=== PATIENT | male | born 1945 | race Caucasian/White ===

== ENCOUNTER 2017-07-04 09:29 | Inpatient (IN) | payer MEDICARE, OTHER, SELFPAY ==
[2017-07-04] VITALS (13 sets, daily range): BP systolic 95–192; BP diastolic 55–85; PULSE 48–60; RESP 13–20; TEMP 35.6–37.1; O2SAT 93–98; BMI 38.9; BMI 40.4
--- NOTE | 2017-07-04 09:48 | EKG12_ITS ---
Test Reason : CP Blood Pressure : / mmHG Vent. Rate : 053 BPM Atrial Rate : 053 BPM P-R Int : 182 ms QRS Dur : 102 ms QT Int : 444 ms P-R-T Axes : 026 -23 065 degrees QTc Int : 416 ms Sinus bradycardia Leftward axis Confirmed by LILIANA RDZ, ELSA ([id number]), features editor TREVOR SHEIKH ([id number]) on 07/08/2017 10:19:33 AM Referred By: FUENTES Confirmed By:ELSA FORD MD
--- NOTE | 2017-07-04 09:49 | ED.VISSUMM ---
- ER Visit Summary Date of Service: 07/04/17 Chief Complaint: Exertional dyspnea and aching chest pain History of Present Illness: The patient is a 71 M 3 of CAD with 2 cardiac stents one in 1999 and again 2005. Patient states the last couple weeks with exertion he gets more short of breath and gets chest aching. It does feel similar to when he had his cardiac stents placed. He denies any nausea, vomiting or diarrhea. He denies any leg pain or swelling. He has never had a DVT or PE. He has had no recent travel, surgery, hospital admission or mobilization. He denies any hemoptysis. He denies any melena. Physical Examination: Well-appearing older male. Vital signs are stable afebrile. He does not look septic or toxic. His pulse ox is 90% on room air no hypoxia. No distress. H EENT exam unremarkable. Neck nontender no JVD. Lungs clear to auscultation bilaterally. Heart regular rhythm rate about 55 no murmur. Wall nontender. Abdomen soft nontender. He is moving all 4 extremities. Neurovascularly intact. Strong radial pulse. Calf nontender no edema no cords. Back exam nontender. Neurologically is awake and alert without focal motor deficits. Test Results: BC, BMP and troponin are all normal. Portable chest x-ray 1 view shows no acute abnormality normal cardiac silhouette and mediastinum. EKG is a sinus bradycardia rate of 53 with no acute signs of [place] or ischemia. Repeat exam the patient is doing well at 1040. He will be admitted I have the hospitalist on page. Emergency Department Course and Treatment: Undergo cardiac workup and received p.o. aspirin. He does need to be admitted for further cardiac evaluation for exertional dyspnea and chest pain. Treatment Plan: Admission for further evaluation of exertional dyspnea and chest pain. Disposition: Admission Impression: Acute exertional dyspnea and chest pain History of CAD with 2 cardiac stents This note was generated with [employer] dictation software. It may contain incorrect words, spelling, and punctuation that were not noted in review of the chart prior to signing ED Disposition - Plan for ED Patient: Chief Complaint: Shortness of Breath Referrals: Darrell Aggarwal [NON-STAFF] -
--- NOTE | 2017-07-04 09:52 | RAD_ITS ---
STUDY: X-RAY CHEST REASON FOR EXAM: Male, 71 years old. Shortness of breath and chest discomfort. TECHNIQUE: Single AP portable view of the chest. COMPARISON: None. FINDINGS: EKG electrodes are seen. There is mild elevation of the right hemidiaphragm. There is no demonstrated pleural abnormality. Normal size heart. Normal mediastinum and sarah. Normal visualized pulmonary arteries. Normal visualized aortic arch and descending thoracic aorta. Normal visualized thoracic spine. Normal visualized ribs, clavicles, and shoulders. There is no demonstrated abnormality of the visualized soft tissue structures of the upper abdomen. RAD/Chest 1 View (Portable) IMPRESSION: Normal x-ray examination of the chest. Electronically Signed: Pierre Lin MD at 10:25 EDT Tel [phone], Service support ,
--- NOTE | 2017-07-04 09:52 | ED.DCSUM_ITS ---
- ER Visit Summary Date of Service: 07/04/17 Chief Complaint: Exertional dyspnea and aching chest pain History of Present Illness: The patient is a 71 M 3 of CAD with 2 cardiac stents one in 1999 and again 2005. Patient states the last couple weeks with exertion he gets more short of breath and gets chest aching. It does feel similar to when he had his cardiac stents placed. He denies any nausea, vomiting or diarrhea. He denies any leg pain or swelling. He has never had a DVT or PE. He has had no recent travel, surgery, hospital admission or mobilization. He denies any hemoptysis. He denies any melena. Physical Examination: Well-appearing older male. Vital signs are stable afebrile. He does not look septic or toxic. His pulse ox is 90% on room air no hypoxia. No distress. H EENT exam unremarkable. Neck nontender no JVD. Lungs clear to auscultation bilaterally. Heart regular rhythm rate about 55 no murmur. Wall nontender. Abdomen soft nontender. He is moving all 4 extremities. Neurovascularly intact. Strong radial pulse. Calf nontender no edema no cords. Back exam nontender. Neurologically is awake and alert without focal motor deficits. Test Results: BC, BMP and troponin are all normal. Portable chest x-ray 1 view shows no acute abnormality normal cardiac silhouette and mediastinum. EKG is a sinus bradycardia rate of 53 with no acute signs of MS or ischemia. Repeat exam the patient is doing well at 1040. He will be admitted I have the hospitalist on page. Emergency Department Course and Treatment: Undergo cardiac workup and received p.o. aspirin. He does need to be admitted for further cardiac evaluation for exertional dyspnea and chest pain. Treatment Plan: Admission for further evaluation of exertional dyspnea and chest pain. Disposition: Admission Impression: Acute exertional dyspnea and chest pain History of CAD with 2 cardiac stents This note was generated with [employer] dictation software. It may contain incorrect words, spelling, and punctuation that were not noted in review of the chart prior to signing ED Disposition - Plan for ED Patient: Chief Complaint: Shortness of Breath Referrals: Darrell Aggarwal [NON-STAFF] -
[2017-07-04 10:00] LABS: Absolute Lymphocyte Count 1.14 X10^3/ul (0.83-4.51); Absolute Neutrophil Count 3.7 X10^3/uL (2.0-7.7); Basophil# 0.04 X10^3/uL; Basophil% 0.7 % (0-1); Eosinophil# 0.19 X10^3/uL; Eosinophils% 3.6 % (0-5); Hematocrit 45.9 % (40-54); Hemoglobin 15.8 g/dl (13.0-16.5); Lymphocyte # 1.14 X10^3/ul (4.0); Lymphocyte % 21.3 % (19-41); Mean Corp Hgb Conc 34.4 g/gl (32-36); Mean Corpuscular Volume 93.1 fL (80-94); Mean Platelet Vol. 9.4 fl (6.2-12.0); Monocyte% 5.6 % (0-10); Neutrophil # 3.68 X10^3/uL (2.7-7.7); Neutrophil % 68.8 % (47-70); Platelet Count 199 K/mm3 (150-450); RBC Distribution Width CV 12.7 % (11.6-14.6); RBC Distribution Width SD 42.4 fl (35.1-43.9); Red Blood Count 4.93 M/mm3 (4.6-6.2); White Blood Count 5.4 K/mm3 (4.4-11.0)
[2017-07-04 10:01] LABS: POSITIVE COUNT NO; POSITIVE DIFFERENTIAL NO; POSITIVE MORPHOLOGY NO
[2017-07-04] MEDS: Aspirin 81 MG TAB.CHEW 324 MG PO (10:08)
[2017-07-04 10:32] LABS: Anion Gap 7 (5-15); BUN 14 mg/dL (7-18); BUN/Creat Ratio 10.9 RATIO (10-20); Calcium,Total 8.8 mg/dL (8.5-10.1); Chloride 104 mmol/L (98-107); Creatinine, Serum 1.28 mg/dL (0.70-1.30); EST Glomerular Filtration Rate 59 mL/min (>60); Est Glom Filt Rate - Afr Amer 71 mL/min (>60); Estimated Creatinine Clearance 57.19 ml/min; Glucose 127 mg/dL (74-106); Potassium 4.9 mmol/L (3.5-5.1); Sodium Level 139 mmol/L (136-145)
--- NOTE | 2017-07-04 11:43 | ECHOD_ITS ---
Reason For Study: CAD Procedure This was a 2D Doppler, Color Flow transthoracic echocardiogram. Contrast injection was performed. Exam performed portable in patient room. Left Ventricle Normal LV size. Left ventricular systolic function is normal. The estimated ejection fraction is 60 %. No regional wall motion abnormalities noted. Right Ventricle Normal RV size. Normal systolic function. Atria Normal left atrium. Normal right atrium. Mitral Valve Normal mitral valve. Tricuspid Valve Normal tricuspid valve. Mild (1+) tricuspid valve insufficiency. Pulmonary artery systolic pressure is 39 mmHg. Aortic Valve Trisinus/trileaflet aortic valve. Mild-Moderate (1-2+) eccentric aortic valve insufficiency. Pulmonic Valve Normal pulmonic valve. Great Vessels Mild to moderately dilated aortic root. The pulmonary artery is normal size. Normal inferior vena cava. Pericardium/Pleural No pericardial effusion. Medication [id number] given slow IV push to enhance endocardial definition. MMode/2D Measurements & Calculations LVIDd: 5.6 cm IVSd: 1.2 cm Ao root diam: 4.1 cm LVIDs: 3.7 cm LVPWd: 0.96 cm LA dimension: 4.3 cm RVDd: 4.4 cm FS: 33.8 % LAV(MOD-bp): 54.3 ml LVAd ap4: 42.7 cm2 SV(MOD-sp4): 78.0 ml LAV(MOD-bp) Indexed: 22.3 ml/m2 EDV(MOD-sp4): 153.6 ml LAV(MOD-sp2): 60.9 ml EDV(sp4-el): 161.4 ml LAV(MOD-sp4): 49.3 ml LVAs ap4: 27.2 cm2 ESV(MOD-sp4): 75.6 ml ESV(sp4-el): 78.2 ml EF(MOD-sp4): 50.8 % EF(sp4-el): 51.6 % SV(sp4-el): 83.2 ml LA A4 area: 18.2 cm2 RA A4 area: 17.8 cm2 Doppler Measurements & Calculations MV E max joseph: 58.9 cm/sec Lat Peak E' Joseph: 8.8 cm/sec Med Peak E' Joseph: 6.6 cm/sec MV A max joseph: 67.7 cm/sec E/E' lat: 6.7 E/E' med: 8.9 MV E/A: 0.87 Ao V2 max: 165.4 cm/sec AI max joseph: 481.5 cm/sec LV V1 max: 147.1 cm/sec Ao max P.0 mmHg AI max P.0 mmHg LV V1 max P.7 mmHg AI dec slope: 218.5 cm/sec2 AI P1/2t: 645.5 msec PA V2 max: 101.2 cm/sec PI end-d joseph: 91.4 cm/sec TR max joseph: 292.5 cm/sec TR max P.2 mmHg Interpretation Summary Normal LV size. Left ventricular systolic function is normal. The estimated ejection fraction is 60 %. Pulmonary artery systolic pressure is 39 mmHg. Mild (1+) tricuspid valve insufficiency. Contrast injection was performed. Ordering Physician: Rosa Elena Bernardo Performed By: Nelida Weems, LAURA, RVT
--- NOTE | 2017-07-04 11:43 | EKG12_ITS ---
Test Reason : ADM EKG Blood Pressure : / mmHG Vent. Rate : 049 BPM Atrial Rate : 049 BPM P-R Int : 190 ms QRS Dur : 096 ms QT Int : 456 ms P-R-T Axes : 052 -21 056 degrees QTc Int : 411 ms Sinus bradycardia Otherwise normal ECG Confirmed by LILIANA RDZ, ELSA ([id number]), production editor TREVOR SHEIKH ([id number]) on 07/13/2017 3:24:30 PM Referred By: AIRAM Confirmed By:ELSA FORD MD
--- NOTE | 2017-07-04 13:57 | PCM.HP.STD ---
Problem List (1) Angina of effort Status: Acute (2) HTN (hypertension) Status: Chronic Qualifiers: Hypertension type: essential hypertension Qualified Code(s): I10 - Essential (primary) hypertension (3) Morbid obesity Status: Chronic (4) CAD (coronary artery disease) Status: Chronic (5) History of PTCA Status: Acute Comment: Left main in 1999 and LAD in 2005 - both at [facility] (6) Former cigarette smoker Status: Acute (7) Colon polyps Status: Acute (8) BPH (benign prostatic hyperplasia) Status: Acute (9) Anxiety and depression Status: Acute (10) Chronic renal failure, stage 3 (moderate) Status: Chronic (11) ADAN (obstructive sleep apnea) Status: Chronic Comment: semi-compliant with BIPAP History of Present Illness Date of Admission: 07/04/17 Chief Complaint: Chest pain The patient is a 71 year old M with a PMH of coronary artery disease, PTCA/stent of left main coronary artery in 1999, PTCA/stent of LAD in 2005, hypertension, anxiety/depression, morbid obesity number BPH, colon polyps and former smoking hx who presented to the ED at [facility] on 07/04/2017 complaining of substernal chest discomfort with exertion. He has been having chest discomfort for the past several weeks with exertion and it is associated with shortness of breath and diaphoresis. His exercise tolerance is decreasing and he gets CP with walking and with stairs. He tells me it feels like what he had prior to the stent to the left main in 1999. It occasionally radiates to the left shoulder. It lasts approximately 5 minutes and goes away within 5 minutes if he sits down. Yesterday he had substernal chest pressure with shortness of breath and diaphoresis and it was more severe than usual. He took nitroglycerin and it went away quicker. 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 He sometimes gets SOB when lying down but denies any swelling in the legs. Denies palpitations, lightheadedness, syncope, hx of CHF and hx of cardiac dysrhythmia. He had RF as a child and stated he has never been told he has a MM. Vital signs at presentation to the emergency room were temperature 96.1, heart rate 60, blood pressure 192/82, respiratory rate 13 and he is 98% saturated on room air. KG shows sinus bradycardia with no ischemic changes however the patient was not having chest pain at the time of the EKG. Chest x-ray shows no pleural effusions, pulmonary vascular congestion or infiltrates. CBC is unremarkable. BMP shows a creatinine of 1.28 with BUN of 14. GFR is 59 which is consistent with chronic renal failure stage III. A random blood sugar was elevated at 127. Troponin ?2 has been less than 0.015. He is being admitted to a monitored bed on progressive care unit for unstable angina. Past Medical History Past Medical History (Chronic Problems): Chronic Problems HTN (hypertension) (Chronic) Morbid obesity (Chronic) CAD (coronary artery disease) (Chronic) Chronic renal failure, stage 3 (moderate) (Chronic) ADAN (obstructive sleep apnea) (Chronic) semi-compliant with BIPAP Allergies Sulfa (Sulfonamide Antibiotics) Allergy (Verified 07/04/17 09:32) Unknown Home Medications: Ambulatory Orders Medication Instructions Recorded Lamotrigine [Lamictal] 25 mg PO DAILY 07/04/17 Pantoprazole Sodium [Protonix] 80 mg PO BID 07/04/17 Paroxetine HCl [Paxil] 20 mg PO DAILY 07/04/17 Propranolol HCl [Inderal] 10 mg PO DAILY 07/04/17 Surgical History: cholecystectomy, - - colonoscopies with polypectomies, laser TURP? Psychiatric History: Anxiety, Depression Lives: Alone, - - he is Smoking Status: Former smoker - quit in 1999 Tobacco Use: Non-smoker Alcohol: Rare - mostly quit in 1999 Drugs: None - *Family History Maternal History Items: - - he is adopted....does not know much about parents......mother has COPD per his dtr Review of Systems Constitutional: Denies: Chills, Fever, Weight Change Eyes: Denies: Vision Change HEENT: Denies: Head Aches, Sinus Congestion, Sinus Drainage Cardiovascular: Reports: Chest Pain, Chest Pressure. Denies: Edema, Light Headedness, Palpitations, Paroxysmal Noc. Dyspnea, Syncope Respiratory: Reports: Shortness of Breath, Shortness of breath upon exertion. Denies: Cough, Sputum production, Wheezing Gastrointestinal: Denies: Abdominal Pain, Nausea, Vomiting Genitourinary: Denies: Dysuria Musculoskeletal: Denies: Joint Pain, Joint Tenderness Skin: Denies: Rash, Wounds Neurological: Denies: Numbness, Tingling, Focal weakness Psychiatric: Reports: Anxiety, Depression. Denies: Homicidal Ideations, Suicidal Ideations Endocrine: Reports: - - has gained at least 60 lbs in the past 5 years Hematologic/ Lymphatic: Denies: Hx of blood clot VTE Information - Inpt Only VTE Present on Admission: No VTE Mechan Device Prophylaxis: Knee High HÉCTOR Hose VTE Pharm Prophylaxis ordered?: Yes Patient Problems: Active and Suspected Problems Angina of effort (Acute) History of PTCA (Acute) Left main in 1999 and LAD in 2005 - both at [facility] Former cigarette smoker (Acute) Colon polyps (Acute) BPH (benign prostatic hyperplasia) (Acute) Anxiety and depression (Acute) - Physical Exam General: Alert, Oriented x3, Cooperative, No apparent distress, Well developed, Well nourished HEENT: Atraumatic, PERRLA, EOMI, Normocephalic Oral: Moist Mucosa Neck: Supple, Negative Carotid Bruits, No Nodes, Trachea Midline, - - Brisk carotid upstroke with good pulse volume Lungs: Clear to auscultation, No rhonchi, No wheeze, No rales, Diminished Cardiovascular: Regular rate, Regular Rhythm, Normal S1, Normal S2, No Ectopic Activity, Murmur - he has a systolic MM at the second RICS and also has a diastoli MM, No rub noted, No Gallop Abdomen: Bowel Sounds Present, Soft, Non Tender, Non-Distended, No Hepato-splenomegaly, Obese Extremities: No clubbing, No cyanosis, No edema, No Calf Tenderness, Peripheral Pulses Normal Skin: No rashes, No breakdown Musculoskeletal: No Muscle Wasting Neurological: Cranial nerves II-XII grossly intact, Neuro grossly intact Psych/Mental Status: Normal Affect, Appropriate Vital Signs Temp Pulse Resp BP Pulse Ox 98.7 F 48 L 16 137/72 H 95 07/04/17 11:45 07/04/17 11:45 07/04/17 11:45 07/04/17 11:45 07/04/17 11:45 Oxygen Delivery Method Room Air Weight: 281 lb 4.957 oz Body Mass Index (BMI) 40.4 Laboratory Tests Past 24 Hrs 07/04/17 12:25 Troponin I < 0.015 Assessment/Plan Active and Suspected Problems Angina of effort (Acute) History of PTCA (Acute) Left main in 1999 and LAD in 2006 - both at [facility] Former cigarette smoker (Acute) Colon polyps (Acute) BPH (benign prostatic hyperplasia) (Acute) Anxiety and depression (Acute) Impressions 1. Chest pain consistent with escalating angina 2. 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 morbid obesity 4. CAD with hx of PTCA and 2 stents in the past. LAD and the Left main 5. ADAN - not always compliant with CPAP....no sleep study for several years and he has gaine at least 60 lbs in the past 5 years. 6. HTN 7. former smoker - quit in 1999 8. hx of colon polyps 9. Chronic renal failure stage III 10. BPH with history of TURP using the laser by Dr. Brock Admit to a monitored bed on PCU ASA 81 mg PO daily SL NTG 0.4 mg PRN chest pain Serial Cardiac Enzymes Stat EKG PRN CP Chest XRAY - no acute findings Cardiology consult with Dr. Beach DVT prophylaxis ordered ECHO to evaluate MM Code Visit OBSV E&M: 08280 Initial observation care L3
--- NOTE | 2017-07-04 14:07 | HP.PCM_ITS ---
Problem List (1) Angina of effort Status: Acute (2) HTN (hypertension) Status: Chronic Qualifiers: Hypertension type: essential hypertension Qualified Code(s): I10 - Essential (primary) hypertension (3) Morbid obesity Status: Chronic (4) CAD (coronary artery disease) Status: Chronic (5) History of PTCA Status: Acute Comment: Left main in 1999 and LAD in 2005 - both at [facility] (6) Former cigarette smoker Status: Acute (7) Colon polyps Status: Acute (8) BPH (benign prostatic hyperplasia) Status: Acute (9) Anxiety and depression Status: Acute (10) Chronic renal failure, stage 3 (moderate) Status: Chronic (11) ADAN (obstructive sleep apnea) Status: Chronic Comment: semi-compliant with BIPAP History of Present Illness Date of Admission: 07/04/17 Chief Complaint: Chest pain The patient is a 71 year old M with a PMH of coronary artery disease, PTCA/ stent of left main coronary artery in 1999, PTCA/stent of LAD in 2005, hypertension, anxiety/depression, morbid obesity number BPH, colon polyps and former smoking hx who presented to the ED at [facility] on 07/04/2017 complaining of substernal chest discomfort with exertion. He has been having chest discomfort for the past several weeks with exertion and it is associated with shortness of breath and diaphoresis. His exercise tolerance is decreasing and he gets CP with walking and with stairs. He tells me it feels like what he had prior to the stent to the left main in 1999. It occasionally radiates to the left shoulder. It lasts approximately 5 minutes and goes away within 5 minutes if he sits down. Yesterday he had substernal chest pressure with shortness of breath and diaphoresis and it was more severe than usual. He took nitroglycerin and it went away quicker. 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 He sometimes gets SOB when lying down but denies any swelling in the legs. Denies palpitations, lightheadedness, syncope, hx of CHF and hx of cardiac dysrhythmia. He had RF as a child and stated he has never been told he has a MM. Vital signs at presentation to the emergency room were temperature 96.1, heart rate 60, blood pressure 192/82, respiratory rate 13 and he is 98% saturated on room air. KG shows sinus bradycardia with no ischemic changes however the patient was not having chest pain at the time of the EKG. Chest x-ray shows no pleural effusions, pulmonary vascular congestion or infiltrates. CBC is unremarkable. BMP shows a creatinine of 1.28 with BUN of 14. GFR is 59 which is consistent with chronic renal failure stage III. A random blood sugar was elevated at 127. Troponin ?2 has been less than 0.015. He is being admitted to a monitored bed on progressive care unit for unstable angina. Past Medical History Past Medical History (Chronic Problems): Chronic Problems HTN (hypertension) (Chronic) Morbid obesity (Chronic) CAD (coronary artery disease) (Chronic) Chronic renal failure, stage 3 (moderate) (Chronic) ADAN (obstructive sleep apnea) (Chronic) semi-compliant with BIPAP Allergies Sulfa (Sulfonamide Antibiotics) Allergy (Verified 07/04/17 09:32) Unknown Home Medications: Ambulatory Orders Medication Instructions Recorded Lamotrigine [Lamictal] 25 mg PO DAILY 07/04/17 Pantoprazole Sodium [Protonix] 80 mg PO BID 07/04/17 Paroxetine HCl [Paxil] 20 mg PO DAILY 07/04/17 Propranolol HCl [Inderal] 10 mg PO DAILY 07/04/17 Surgical History: cholecystectomy, - - colonoscopies with polypectomies, laser TURP? Psychiatric History: Anxiety, Depression Lives: Alone, - - he is Smoking Status: Former smoker - quit in 1999 Tobacco Use: Non-smoker Alcohol: Rare - mostly quit in 1999 Drugs: None - *Family History Maternal History Items: - - he is adopted....does not know much about parents......mother has COPD per his dtr Review of Systems Constitutional: Denies: Chills, Fever, Weight Change Eyes: Denies: Vision Change HEENT: Denies: Head Aches, Sinus Congestion, Sinus Drainage Cardiovascular: Reports: Chest Pain, Chest Pressure. Denies: Edema, Light Headedness, Palpitations, Paroxysmal Noc. Dyspnea, Syncope Respiratory: Reports: Shortness of Breath, Shortness of breath upon exertion. Denies: Cough, Sputum production, Wheezing Gastrointestinal: Denies: Abdominal Pain, Nausea, Vomiting Genitourinary: Denies: Dysuria Musculoskeletal: Denies: Joint Pain, Joint Tenderness Skin: Denies: Rash, Wounds Neurological: Denies: Numbness, Tingling, Focal weakness Psychiatric: Reports: Anxiety, Depression. Denies: Homicidal Ideations, Suicidal Ideations Endocrine: Reports: - - has gained at least 60 lbs in the past 5 years Hematologic/ Lymphatic: Denies: Hx of blood clot VTE Information - Inpt Only VTE Present on Admission: No VTE Mechan Device Prophylaxis: Knee High HÉCTOR Hose VTE Pharm Prophylaxis ordered?: Yes Patient Problems: Active and Suspected Problems Angina of effort (Acute) History of PTCA (Acute) Left main in 1999 and LAD in 2005 - both at [facility] Former cigarette smoker (Acute) Colon polyps (Acute) BPH (benign prostatic hyperplasia) (Acute) Anxiety and depression (Acute) - Physical Exam General: Alert, Oriented x3, Cooperative, No apparent distress, Well developed, Well nourished HEENT: Atraumatic, PERRLA, EOMI, Normocephalic Oral: Moist Mucosa Neck: Supple, Negative Carotid Bruits, No Nodes, Trachea Midline, - - Brisk carotid upstroke with good pulse volume Lungs: Clear to auscultation, No rhonchi, No wheeze, No rales, Diminished Cardiovascular: Regular rate, Regular Rhythm, Normal S1, Normal S2, No Ectopic Activity, Murmur - he has a systolic MM at the second RICS and also has a diastoli MM, No rub noted, No Gallop Abdomen: Bowel Sounds Present, Soft, Non Tender, Non-Distended, No Hepato- splenomegaly, Obese Extremities: No clubbing, No cyanosis, No edema, No Calf Tenderness, Peripheral Pulses Normal Skin: No rashes, No breakdown Musculoskeletal: No Muscle Wasting Neurological: Cranial nerves II-XII grossly intact, Neuro grossly intact Psych/Mental Status: Normal Affect, Appropriate Vital Signs Temp Pulse Resp BP Pulse Ox 98.7 F 48 L 16 137/72 H 95 07/04/17 11:45 07/04/17 11:45 07/04/17 11:45 07/04/17 11:45 07/04/17 11:45 Oxygen Delivery Method Room Air Weight: 281 lb 4.957 oz Body Mass Index (BMI) 40.4 Laboratory Tests Past 24 Hrs 07/04/17 12:25 Troponin I < 0.015 Assessment/Plan Active and Suspected Problems Angina of effort (Acute) History of PTCA (Acute) Left main in 1999 and LAD in 2006 - both at [facility] Former cigarette smoker (Acute) Colon polyps (Acute) BPH (benign prostatic hyperplasia) (Acute) Anxiety and depression (Acute) Impressions 1. Chest pain consistent with escalating angina 2. 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 morbid obesity 4. CAD with hx of PTCA and 2 stents in the past. LAD and the Left main 5. ADAN - not always compliant with CPAP....no sleep study for several years and he has gaine at least 60 lbs in the past 5 years. 6. HTN 7. former smoker - quit in 1999 8. hx of colon polyps 9. Chronic renal failure stage III 10. BPH with history of TURP using the laser by Dr. Brock Admit to a monitored bed on PCU ASA 81 mg PO daily SL NTG 0.4 mg PRN chest pain Serial Cardiac Enzymes Stat EKG PRN CP Chest XRAY - no acute findings Cardiology consult with Dr. Beach DVT prophylaxis ordered ECHO to evaluate MM Code Visit OBSV E&M: 61520 Initial observation care L3
--- NOTE | 2017-07-04 15:21 | CPS ---
Pt declines wanting to use hospital pap. States he has a machine at home but does not wear it every night.
[2017-07-04] MEDS: Acetaminophen 325 MG Tablet 650 MG PO (16:02)
--- NOTE | 2017-07-04 18:04 | PCM.CONS.C ---
Reason for Consult Date of Consultation: 07/04/17 Reason for Consultation: Chest pressure. History of Present Illness: The patient is a 71 year old M with a PMH of coronary artery disease, PTCA/stent of left coronary artery in 1999, PTCA/stent of LAD in 2005, hypertension, anxiety/depression, morbid obesity number BPH, colon polyps and former smoking hx who presented to the ED at [facility] on 07/04/2017 complaining of substernal chest discomfort with exertion. He has been having chest discomfort for the past several weeks with exertion and it is associated with shortness of breath and diaphoresis. His exercise tolerance is decreasing and he gets CP with walking and with stairs. He tells me it feels like what he had prior to the stent to the left main in 1999. It occasionally radiates to the left shoulder. It lasts approximately 5 minutes and goes away within 5 minutes if he sits down. Yesterday he had substernal chest pressure with shortness of breath and diaphoresis and it was more severe than usual. He took nitroglycerin and it went away quicker. He has not had a stress test in 4 years and does not currently have a manager strategy & account. He sometimes gets SOB when lying down but denies any swelling in the legs. Denies palpitations, lightheadedness, syncope, hx of CHF and hx of cardiac dysrhythmia. At this particular time he appears to be free of any chest pressure. He was seen in the emergency room and subsequently admitted to the telemetry care unit cardiac enzymes have thus far been normal. Past Medical History Allergies/Adverse Reactions: Allergies Sulfa (Sulfonamide Antibiotics) Allergy (Verified 07/04/17 09:32) Unknown Home Medications: Ambulatory Orders Medication Instructions Recorded Lamotrigine [Lamictal] 25 mg PO DAILY 07/04/17 Pantoprazole Sodium [Protonix] 80 mg PO BID 07/04/17 Paroxetine HCl [Paxil] 20 mg PO DAILY 07/04/17 Propranolol HCl [Inderal] 10 mg PO DAILY 07/04/17 Past Medical History (Chronic Problems): Chronic Problems HTN (hypertension) (Chronic) Morbid obesity (Chronic) CAD (coronary artery disease) (Chronic) Chronic renal failure, stage 3 (moderate) (Chronic) ADAN (obstructive sleep apnea) (Chronic) semi-compliant with BIPAP Surgical History: cholecystectomy, - - colonoscopies with polypectomies, laser TURP? Psychiatric History: Anxiety, Depression - *Family History Maternal History Items: - - he is adopted....does not know much about parents......mother has COPD per his dtr Lives: Alone, - - he is Smoking Status: Former smoker - quit in 1999 Tobacco Use: Non-smoker Alcohol: Rare - mostly quit in 1999 Drugs: None Review of Systems - Review of Systems General: Denies: Fever, Night Sweats, Fatigue Cardiovascular: Reports: Chest Discomfort with Exertion, Shortness of Breath, Shortness of Breath at Rest, Shortness of Breath with Exertion. Denies: Chest Discomfort, Orthopnea, PND, Peripheral Edema, Palpitations, Lightheadedness, Dizziness, Near Syncope, Syncope Respiratory: Denies: Cough, Sputum Production, Hemoptysis Gastrointestinal: Denies: Hematemesis, Hematochezia, Melena Genitourinary: Denies: Dysuria, Hematuria Skin: Denies: Rash Subjectve: Pleasant gentleman in no apparent distress Objective: Vital Signs Temp Pulse Resp BP Pulse Ox 98.5 F 53 L 16 138/85 H 95 07/04/17 16:07 07/04/17 16:07 07/04/17 16:07 07/04/17 16:07 07/04/17 16:07 Oxygen Delivery Method Room Air Weight: 281 lb 4.957 oz Body Mass Index (BMI) 40.4 Intake and Output for Last 24 Hours 07/02/17 07/03/17 07/04/17 23:59 23:59 23:59 Intake Total 400 / 400 Balance 400 / 400 General: Awake, Alert, Oriented x 3 HEENT: PERRL, EOMI, Sclera Non Icteric Neck: Supple, Good ROM, No Lymph Node Enlargement Lungs: Clear to auscultation Cardiovascular: Regular Rhythm, Normal S1, Normal S2, No Rubs, No Gallops Murmur Murmur: Grade 2/6, Early Diastolic, LLSB Vascular: No Carotid Bruits, Normal Femoral Pulses, Normal Radial Pulses, Normal Dorsalis Pedal Pulse, Normal Posterior Tibial Pulses Abdomen: Bowel Sounds Present, Soft, Non Tender, No HSM, No Organomegaly Extremities: No Cyanosis, No Clubbing, No edema Neurological: No Focal Motor or Sensory Deficit 07/04/17 12:25: Troponin I < 0.015 07/04/17 16:10: Troponin I < 0.015 Rhythm: EKG: Sinus bradycardia with a rate of 49 bpm Assessment/Plan 1. Chest discomfort Mr. Walters has a history of coronary artery disease and is status post previous angioplasty and stenting. He presents with chest discomfort which appears to be worsening with increased frequency and with less provocation. His EKG at this time appears to be normal and his cardiac enzymes are normal. However due to his previous risk factors and his previous history I would recommend that we defer stress testing and proceed with a left heart catheterization. I have discussed this with him and his they understand and agree to proceed. He will be loaded with clopidogrel and aspirin as well as statin. Depending on the findings further recommendations will be made. 2. Valvular heart disease. He does have evidence of mild aortic regurgitation. He has a previous history of rheumatic heart disease but at this time I do not see any rheumatic deformity of his mitral valve. We will continue to follow him closely he does have preserved left ventricular systolic function. 3. Hypertension. He does have a history of hypertension which is currently well controlled and will continue to aggressively manage him with beta-adrian and calcium channel adrian combination. 4. Obesity Exercise and diet have been emphasized to him as a way of modifying his risk factors. He would also continue on high intensity statin. Thank you for allowing me to participate in the care of your patient. Please don't hesitate to call if any issues arise
--- NOTE | 2017-07-04 18:10 | CON.PCM_ITS ---
Reason for Consult Date of Consultation: 07/04/17 Reason for Consultation: Chest pressure. History of Present Illness: The patient is a 71 year old M with a PMH of coronary artery disease, PTCA/ stent of left coronary artery in 1999, PTCA/stent of LAD in 2005, hypertension , anxiety/depression, morbid obesity number BPH, colon polyps and former smoking hx who presented to the ED at [facility] on 07/04/2017 complaining of substernal chest discomfort with exertion. He has been having chest discomfort for the past several weeks with exertion and it is associated with shortness of breath and diaphoresis. His exercise tolerance is decreasing and he gets CP with walking and with stairs. He tells me it feels like what he had prior to the stent to the left main in 1999. It occasionally radiates to the left shoulder. It lasts approximately 5 minutes and goes away within 5 minutes if he sits down. Yesterday he had substernal chest pressure with shortness of breath and diaphoresis and it was more severe than usual. He took nitroglycerin and it went away quicker. He has not had a stress test in 4 years and does not currently have a striper machine. He sometimes gets SOB when lying down but denies any swelling in the legs. Denies palpitations, lightheadedness, syncope, hx of CHF and hx of cardiac dysrhythmia. At this particular time he appears to be free of any chest pressure. He was seen in the emergency room and subsequently admitted to the telemetry care unit cardiac enzymes have thus far been normal. Past Medical History Allergies/Adverse Reactions: Allergies Sulfa (Sulfonamide Antibiotics) Allergy (Verified 07/04/17 09:32) Unknown Home Medications: Ambulatory Orders Medication Instructions Recorded Lamotrigine [Lamictal] 25 mg PO DAILY 07/04/17 Pantoprazole Sodium [Protonix] 80 mg PO BID 07/04/17 Paroxetine HCl [Paxil] 20 mg PO DAILY 07/04/17 Propranolol HCl [Inderal] 10 mg PO DAILY 07/04/17 Past Medical History (Chronic Problems): Chronic Problems HTN (hypertension) (Chronic) Morbid obesity (Chronic) CAD (coronary artery disease) (Chronic) Chronic renal failure, stage 3 (moderate) (Chronic) ADNA (obstructive sleep apnea) (Chronic) semi-compliant with BIPAP Surgical History: cholecystectomy, - - colonoscopies with polypectomies, laser TURP? Psychiatric History: Anxiety, Depression - *Family History Maternal History Items: - - he is adopted....does not know much about parents......mother has COPD per his dtr Lives: Alone, - - he is Smoking Status: Former smoker - quit in 1999 Tobacco Use: Non-smoker Alcohol: Rare - mostly quit in 1999 Drugs: None Review of Systems - Review of Systems General: Denies: Fever, Night Sweats, Fatigue Cardiovascular: Reports: Chest Discomfort with Exertion, Shortness of Breath, Shortness of Breath at Rest, Shortness of Breath with Exertion. Denies: Chest Discomfort, Orthopnea, PND, Peripheral Edema, Palpitations, Lightheadedness, Dizziness, Near Syncope, Syncope Respiratory: Denies: Cough, Sputum Production, Hemoptysis Gastrointestinal: Denies: Hematemesis, Hematochezia, Melena Genitourinary: Denies: Dysuria, Hematuria Skin: Denies: Rash Subjectve: Pleasant gentleman in no apparent distress Objective: Vital Signs Temp Pulse Resp BP Pulse Ox 98.5 F 53 L 16 138/85 H 95 07/04/17 16:07 07/04/17 16:07 07/04/17 16:07 07/04/17 16:07 07/04/17 16:07 Oxygen Delivery Method Room Air Weight: 281 lb 4.957 oz Body Mass Index (BMI) 40.4 Intake and Output for Last 24 Hours 07/02/17 07/03/17 07/04/17 23:59 23:59 23:59 Intake Total 400 / 400 Balance 400 / 400 General: Awake, Alert, Oriented x 3 HEENT: PERRL, EOMI, Sclera Non Icteric Neck: Supple, Good ROM, No Lymph Node Enlargement Lungs: Clear to auscultation Cardiovascular: Regular Rhythm, Normal S1, Normal S2, No Rubs, No Gallops Murmur Murmur: Grade 2/6, Early Diastolic, LLSB Vascular: No Carotid Bruits, Normal Femoral Pulses, Normal Radial Pulses, Normal Dorsalis Pedal Pulse, Normal Posterior Tibial Pulses Abdomen: Bowel Sounds Present, Soft, Non Tender, No HSM, No Organomegaly Extremities: No Cyanosis, No Clubbing, No edema Neurological: No Focal Motor or Sensory Deficit 07/04/17 12:25: Troponin I < 0.015 07/04/17 16:10: Troponin I < 0.015 Rhythm: EKG: Sinus bradycardia with a rate of 49 bpm Assessment/Plan 1. Chest discomfort Mr. Walters has a history of coronary artery disease and is status post previous angioplasty and stenting. He presents with chest discomfort which appears to be worsening with increased frequency and with less provocation. His EKG at this time appears to be normal and his cardiac enzymes are normal. However due to his previous risk factors and his previous history I would recommend that we defer stress testing and proceed with a left heart catheterization. I have discussed this with him and his they understand and agree to proceed. He will be loaded with clopidogrel and aspirin as well as statin. Depending on the findings further recommendations will be made. 2. Valvular heart disease. He does have evidence of mild aortic regurgitation. He has a previous history of rheumatic heart disease but at this time I do not see any rheumatic deformity of his mitral valve. We will continue to follow him closely he does have preserved left ventricular systolic function. 3. Hypertension. He does have a history of hypertension which is currently well controlled and will continue to aggressively manage him with beta-adrian and calcium channel adrian combination. 4. Obesity Exercise and diet have been emphasized to him as a way of modifying his risk factors. He would also continue on high intensity statin. Thank you for allowing me to participate in the care of your patient. Please don't hesitate to call if any issues arise
[2017-07-04] MEDS: 0.9% Normal Saline 1,000 ML 15 ML IV (20:05)
[2017-07-04] MEDS: Clopidogrel Bisulfate 300 MG Tablet PO (20:05)
[2017-07-04] MEDS: Pantoprazole Sodium 40 MG Tablet PO (22:00)
[2017-07-04] MEDS: Atorvastatin Calcium 40 MG Tablet PO (22:00)
[2017-07-05] VITALS (38 sets, daily range): BP systolic 111–163; BP diastolic 52–81; PULSE 39–79; RESP 14–23; TEMP 36.4–37.2; O2SAT 93–98
--- NOTE | 2017-07-05 04:00 | EKG12_ITS ---
Test Reason : AM EKG Blood Pressure : / mmHG Vent. Rate : 047 BPM Atrial Rate : 047 BPM P-R Int : 182 ms QRS Dur : 098 ms QT Int : 476 ms P-R-T Axes : 044 -21 056 degrees QTc Int : 421 ms Sinus bradycardia Otherwise normal ECG Confirmed by LILIANA RDZ, ELSA ([id number]), health editor TREVOR SHEIKH ([id number] on 07/13/2017 3:22:43 PM Referred By: DR ALEGRIA Confirmed By:ELSA FORD MD
[2017-07-05 05:07] LABS: Absolute Lymphocyte Count 1.45 X10^3/ul (0.83-4.51); Absolute Neutrophil Count 3.3 X10^3/uL (2.0-7.7); Basophil# 0.04 X10^3/uL; Basophil% 0.7 % (0-1); Eosinophil# 0.22 X10^3/uL; Hematocrit 42.6 % (40-54); Hemoglobin 14.5 g/dl (13.0-16.5); Lymphocyte # 1.45 X10^3/ul (4.0); Lymphocyte % 26.3 % (19-41); Mean Corpuscular Hgb 31.9 pg (27.0-32.0); Mean Corpuscular Volume 93.8 fL (80-94); Mean Platelet Vol. 9.6 fl (6.2-12.0); Monocyte# 0.53 X10^3/uL; Monocyte% 9.6 % (0-10); Neutrophil # 3.27 X10^3/uL (2.7-7.7); Neutrophil % 59.4 % (47-70); Platelet Count 178 K/mm3 (150-450); RBC Distribution Width CV 12.7 % (11.6-14.6); RBC Distribution Width SD 42.4 fl (35.1-43.9); Red Blood Count 4.54 M/mm3 (4.6-6.2); White Blood Count 5.5 K/mm3 (4.4-11.0)
[2017-07-05 05:12] LABS: POSITIVE COUNT NO; POSITIVE DIFFERENTIAL NO; POSITIVE MORPHOLOGY NO
[2017-07-05 05:15] LABS: International Normalized Ratio 1.1; Partial Thromboplast Time 27.4 Seconds (24.1-36.2)
[2017-07-05 05:25] LABS: Anion Gap 8 (5-15); BUN 15 mg/dL (7-18); BUN/Creat Ratio 13.8 RATIO (10-20); Calcium,Total 8.1 mg/dL (8.5-10.1); Chloride 107 mmol/L (98-107); Creatinine, Serum 1.09 mg/dL (0.70-1.30); EST Glomerular Filtration Rate 71 mL/min (>60); Est Glom Filt Rate - Afr Amer 86 mL/min (>60); Estimated Creatinine Clearance 65.11 ml/min; Glucose 91 mg/dL (74-106); Potassium 4.1 mmol/L (3.5-5.1); Sodium Level 144 mmol/L (136-145)
[2017-07-05] MEDS: Clopidogrel Bisulfate 75 MG Tablet PO ×2 (06:15→15:06)
[2017-07-05] MEDS: Aspirin E.C. 81 MG Tablet PO (06:15)
--- NOTE | 2017-07-05 06:49 | PN_ITS ---
Patient Problems: Active and Suspected Problems (Last Updated 07/05/17 @ 10:48 by Rebekah Quesada) Angina of effort (Acute) History of PTCA (Acute) Left main in 1999 and LAD in 2005 - both at [facility] Former cigarette smoker (Acute) Colon polyps (Acute) BPH (benign prostatic hyperplasia) (Acute) Anxiety and depression (Acute) Subjective: All events of the past 24 hours have been reviewed. Patient was seen independently and in conjunction with Bib LUCAS. Afebrile, vital signs stable, 93-94% on room air CBC is unremarkable. PT and PTT are normal. BMP shows creatinine has improved and is 1.09 today, down from 1.28 at admission. Potassium is 4.1. Serial cardiac enzymes were negative. Echocardiogram showed normal left ventricular function with an estimated ejection fraction of 60%. The pulmonary artery systolic pressure was estimated at 39. Right ventricle was normal in size with normal systolic function. There was no atrial enlargement. There was mild to moderate eccentric aortic valve insufficiency. Iliac catheterization showed severe mid to distal RCA stenosis and the patient underwent PTCA/FRACISCO. Postprocedure he was transferred to the intensive care unit. He was seen and examined postprocedure. He denies chest pain, shortness of breath, palpitations, lightheadedness. gambling monitor shows normal sinus rhythm. Objective: General: alert, oriented X3, NAD, appropriate with normal affect Neck: supple, trachea midline, carotids have brisk upstroke and normal pulse volume, no JVD, no carotid bruits Lungs: CTA, symmetric chest expansion, not tachypneic, able to lie flat with no respiratory distress Heart: Regular rate and rhythm, normal S1, normal S2, diastolic murmur at the second right intercostal space which radiates to the lower left sternal border. , no gallop, no rub, PMI is on the midclavicular line Abdomen: soft, NT, ND, BS's present. The R groin is dry with no blood on the dressing, no swelling and no hematoma. Extremities: no edema, no calf tenderness, peripheral pulses are normal - Physical Exam Vital Signs Temp Pulse Resp BP Pulse Ox 97.8 F 48 L 16 132/73 H 93 07/05/17 06:19 07/05/17 06:19 07/05/17 06:19 07/05/17 06:19 07/05/17 06:19 Oxygen Delivery Method Room Air Weight: 281 lb 4.957 oz Body Mass Index (BMI) 40.4 Intake and Output for Last 24 Hours 07/03/17 07/04/17 07/05/17 23:59 23:59 23:59 Intake Total 600 / 600 Balance 600 / 600 Laboratory Tests Past 24 Hrs 07/04/17 07/04/17 07/05/17 12:25 16:10 04:16 WBC 5.5 RBC 4.54 L Hgb 14.5 Hct 42.6 MCV 93.8 MCH 31.9 MCHC 34.0 RDW 12.7 RDW Differential 42.4 Plt Count 178 MPV 9.6 Immature Gran % (Auto) 0.000 Neut % (Auto) 59.4 Lymph % (Auto) 26.3 Graves % (Auto) 9.6 Eos % (Auto) 4.0 Baso % (Auto) 0.7 Absolute Neuts (auto) 3.3 Absolute Lymphs (auto) 1.45 Total Counted Not Reportable PT INR APTT Sodium Potassium Chloride Carbon Dioxide Anion Gap BUN Creatinine Estim Creat Clear Calc Est GFR (MDRD) Af Amer Est GFR (MDRD) Non-Af BUN/Creatinine Ratio Glucose Calcium Troponin I < 0.015 < 0.015 07/05/17 07/05/17 04:16 04:16 WBC RBC Hgb Hct MCV MCH MCHC RDW RDW Differential Plt Count MPV Immature Gran % (Auto) Neut % (Auto) Lymph % (Auto) Graves % (Auto) Eos % (Auto) Baso % (Auto) Absolute Neuts (auto) Absolute Lymphs (auto) Total Counted PT 14.0 INR 1.1 APTT 27.4 Sodium 144 Potassium 4.1 Chloride 107 Carbon Dioxide 29.0 Anion Gap 8 BUN 15 Creatinine 1.09 Estim Creat Clear Calc 65.11 Est GFR (MDRD) Af Amer 86 Est GFR (MDRD) Non-Af 71 BUN/Creatinine Ratio 13.8 Glucose 91 Calcium 8.1 L Troponin I Medical Necessity - Tobacco Use Smoking Status: Former smoker - quit in 1999 Tobacco Use: Non-smoker Assessment/Plan Active and Suspected Problems (Last Updated 07/05/17 @ 10:48 by Rebekah Quesada) Angina of effort (Acute) History of PTCA (Acute) Left main in 1999 and LAD in 2005 - both at [facility] Former cigarette smoker (Acute) Colon polyps (Acute) BPH (benign prostatic hyperplasia) (Acute) Anxiety and depression (Acute) Impressions 1. Chest pain consistent with escalating angina 2. 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 morbid obesity 4. CAD with hx of PTCA and 2 stents in the past. LAD and the Left main 5. ADAN - not always compliant with CPAP....no sleep study for several years and he has gaine at least 60 lbs in the past 5 years. 6. HTN 7. former smoker - quit in 1999 8. hx of colon polyps 9. Chronic renal failure stage III 10. BPH with history of TURP using the laser by Dr. Brock seen by cardiac rehab Monitor in ICU tonight Probable DC tomorrow if no problems Will need to follow up with pulmonary post DC to arrange a PSG Discussed weigh loss with the patient Plan for treatment discussed with Bbi Izquierdo and orders were written
[2017-07-05 07:54] LABS: Cholesterol 241 mg/dL (200); High Density Lipoprotein 42 mg/dL; Triglycerides 161 mg/dL; Very Low Density Lipoprotein 32 mg/dL (5-40)
--- NOTE | 2017-07-05 08:42 | CL.D_ITS ---
Patient Name: DUNCAN SALDANA Study Date: 07/05/2017 Performing: Butch Beach MD Ht: 70.07 inches 178 cm : 1945 Wt: 282.19 lbs 128 kg Age: 71 Gender: male BSA: 2.42 PROCEDURE(S) PERFORMED [id number] W OR WO PTCA, SINGLE CORONARY ARTERY CLINICAL PROFILE AND INDICATIONS Indications: Worsening Angina Heart Failure: None Stress/Imaging Stress/Image Study Performed: No Angina Classification Anginal Classification w/in 2 Weeks: CCS III CAD Presentations: Unstable angina. CONCLUSIONS Severe mid to distal RCA stenosis RECOMMENDATIONS Referred for immediate PCI DESCRIPTION OF PROCEDURE The patient arrived to the procedure lab. The risks and benefits of the procedure as well as a full d escription of our services here and current unavailability of surgical backup were fully explained to the patient and/or their significant other prior to the catheterization. The Timeout was completed, verifying the correct patient and procedure. The patient's procedural site was prepped and draped in the usual fashion. Local anesthetic was given subcutaneously to right groin region with Lidocaine 2%. Using a modified Seldinger technique, arterial access was obtained via the right femoral artery, a 5 Fr sheath was inserted. Left Coronary Artery selective angiography was performed in multiple views u sing a 5 Fr. JL4 catheter. Right Coronary Artery selective angiography was then performed in multiple views using a 5 Fr. JR 4 catheter. Right Coronary Artery selective angiography was then performed in multiple views using a 5 Fr. 3DRC (Wang) catheter. CORONARY ANGIOGRAPHY DOMINANCE: Right Dominant LEFT HEART ASSESSMENT Left Ventricular Ejection Fraction: by Echo 55 % Normal LV wall motion LEFT MAIN: Mild calcification, Angiographically normal LEFT ANTERIOR DECENDING ARTERY: Mild luminal irregularities less than 30% CIRCUMFLEX ARTERY: Mild luminal irregularities less than 30% RIGHT CORONARY ARTERY: Mild luminal irregularities MID RCA: Previously placed stent is patent DISTAL RCA: 90 % Stenosis, Mild luminal irregularities COMPLICATIONS PROCEDURE MEDICATIONS Versed 1 mg IV Oxygen: 2 L/min via nasal cannula Heparin 6000 unit(s) IV 07/05/2017 08:19:14 Nitro 200 mcg IC 07/05/2017 08:22:42 Nitro 200 mcg IC 07/05/2017 08:22:42 IV Bolus: .9 NaCl ml total 07/05/2017 08:20:17 SUMMARY OF HEMODYNAMIC DATA Time AIR REST ECG 07:10:04 AO 145/76 (103) SA 07:25:01 Signed By Butch Beach MD On 07/05/2017 08:41:23 Butch Beach MD
--- NOTE | 2017-07-05 08:47 | PCM.PN.CARD ---
Subjectve: Patient seen and evaluated and underwent cardiac catheterization today. Objective: Vital Signs Temp Pulse Resp BP Pulse Ox 97.8 F 48 L 16 132/73 H 93 07/05/17 06:19 07/05/17 06:19 07/05/17 06:19 07/05/17 06:19 07/05/17 06:19 Oxygen Delivery Method Room Air Weight: 281 lb 4.957 oz Body Mass Index (BMI) 40.4 Intake and Output for Last 24 Hours 07/03/17 07/04/17 07/05/17 23:59 23:59 23:59 Intake Total 600 / 600 Balance 600 / 600 General: Awake, Alert, Oriented x 3 HEENT: PERRL, EOMI, Sclera Non Icteric Neck: Supple, Good ROM, No Lymph Node Enlargement Lungs: Clear to auscultation Cardiovascular: Regular Rhythm, Normal S1, Normal S2, No Murmurs, No Rubs, No Gallops Vascular: No Carotid Bruits, Normal Femoral Pulses, Normal Radial Pulses, Normal Dorsalis Pedal Pulse, Normal Posterior Tibial Pulses Abdomen: Bowel Sounds Present, Soft, Non Tender, No HSM, No Organomegaly Extremities: No Cyanosis, No Clubbing, No edema Neurological: No Focal Motor or Sensory Deficit 07/04/17 12:25: Troponin I < 0.015 07/04/17 16:10: Troponin I < 0.015 07/05/17 04:16: WBC 5.5, RBC 4.54 L, Hgb 14.5, Hct 42.6, MCV 93.8, MCH 31.9, MCHC 34.0, RDW 12.7, RDW Differential 42.4, Plt Count 178, MPV 9.6, Immature Gran % (Auto) 0.000, Neut % (Auto) 59.4, Lymph % (Auto) 26.3, Mckinley % (Auto) 9.6, Eos % (Auto) 4.0, Baso % (Auto) 0.7, Absolute Neuts (auto) 3.3, Total Counted Not Reportable 07/05/17 04:16: PT 14.0, INR 1.1, APTT 27.4 07/05/17 04:16: Sodium 144, Potassium 4.1, Chloride 107, Carbon Dioxide 29.0, Anion Gap 8, BUN 15, Creatinine 1.09, Est GFR (MDRD) Af Amer 86, Est GFR (MDRD) Non-Af 71, BUN/Creatinine Ratio 13.8, Glucose 91, Calcium 8.1 L 07/05/17 04:16: Triglycerides 161, Cholesterol 241 H, LDL Cholesterol 167 H, VLDL Cholesterol 32, HDL Cholesterol 42 Rhythm: EKG: ECHO: Stress Test: Cardiac Cath: PCI: CT Surgery: Holter monitor: EPS: PPM: CXR: Chest CT Scan: Medical Necessity - Tobacco Use Smoking Status: Former smoker - quit in 1999 Tobacco Use: Non-smoker Assessment/Plan 1. Chest discomfort Mr. Walters has a history of coronary artery disease and is status post previous angioplasty and stenting. He presents with chest discomfort which appears to be worsening with increased frequency and with less provocation. His EKG at this time appears to be normal and his cardiac enzymes are normal. He underwent a cardiac catheterization which demonstrated the following: Normal left main coronary artery. Left anterior descending artery with mild diffuse disease. Left circumflex artery with no high-grade stenosis. Dominant right coronary artery previously stented with patent stent and distal focal 80-90% stenosis. Based on the above angiographic findings the patient was referred for angioplasty and stenting of the right coronary artery. 2. Valvular heart disease. He does have evidence of mild aortic regurgitation. He has a previous history of rheumatic heart disease but at this time I do not see any rheumatic deformity of his mitral valve. We will continue to follow him closely he does have preserved left ventricular systolic function. 3. Hypertension. He does have a history of hypertension which is currently well controlled and will continue to aggressively manage him with beta-adrian and calcium channel adrian combination. 4. Obesity Exercise and diet have been emphasized to him as a way of modifying his risk factors. He would also continue on high intensity statin. Thank you for allowing me to participate in the care of your patient. Please don't hesitate to call if any issues arise
[2017-07-05 08:55] LABS: ACT Activated Clotting Time 186 sec (74-137)
--- NOTE | 2017-07-05 08:57 | CL.I_ITS ---
Patient Name: DUNCAN SALDANA Study Date: 07/05/2017 Performing: Roney Gastelum MD Ht: 70 inches 178 cm : 1945 Wt: 282.6 lbs 128 kg Age: 71 Gender: male BSA: 2.42 PROCEDURE(S) PERFORMED [id number] W OR WO PTCA, SINGLE CORONARY ARTERY CLINICAL PROFILE AND CO-MORBIDITIES Dyspnea on exertion with anginal connotations Indications: Worsening Angina, ACS <= 24 hrs, Stable Known CAD, Suspected CAD Heart Failure: None Stress/Imaging Stress/Image Study Performed: No Stress/Image Study Performed: No Angina Classification Anginal Classification w/in 2 Weeks: CCS III CAD Presentations: Unstable angina. Unstable angina. Comorbidities/Risk Factors: Hypertension Dyslipidemia Prior PCI CONCLUSIONS Successful PTCA/FRACISCO of the of distal RCA with a 4.0 x 16 Promus Synergy stent, post dilated with a 4. 0 x 8 NC balloon; 75%-->0%, no dissection. RECOMMENDATIONS Highly recommend quitting all tobacco products Follow up with primary fan mail clerk Risk factor modification ASA Indefinitley Plavix for at least 12 months Routine post interventional care Refer for Outpatient Cardiac Rehab Manual sheath removal per protocol Follow up with Dr. Beach Manual sheath removal; unable to close due to access at bifurcation. DESCRIPTION OF PROCEDURE The patient arrived to the procedure lab. The risks and benefits of the procedure as well as a full d escription of our services here and current unavailability of surgical backup were fully explained to the patient and/or their significant other prior to the catheterization. The Timeout was completed, verifying the correct patient and procedure. The patient's procedural site was prepped and draped in the usual fashion. Local anesthetic was given subcutaneously to right groin region with Lidocaine 2% Using a modified Seldinger technique,arterial access was obtained via the right femoral artery, a 5Fr sheath was inserted. Left Coronary Artery selective angiography was performed in multiple views usin g a 5 Fr. JL4 catheter. Right Coronary Artery selective angiography was then performed in multiple vi ews using a 5 Fr. JR 4 catheter. Right Coronary Artery selective angiography was then performed in mu ltiple views using a 5 Fr. 3DRC (Wang) catheter.The images were reviewed and options discussed. A decision was then made to proceed with an Intervention, IVUS or other adjunct procedure. Arterial sheath was exchanged for a 45 cm 6 Fr Sheath. HSII Guide catheter was inserted and engaged i nto the RCA. BMW Bannister Guide wire was advanced to the RCA. 2.0x12 Emerge Balloon catheter was ins erted. 2.0x12 Emerge Balloon catheter was inserted. Balloon catheter was advanced across lesion in th e right coronary, mid. PTCA balloon inflated at 9 atms for 13 secs. 4.0x16 Synergy Drug Eluting stent was inserted. Drug Eluting stent was advanced across the lesion in the right coronary, mid. Angiogra m performed post balloon dilatation. Angiogram performed pre stent deployment. 4.0x8 NC Emerge Balloo n catheter was inserted. Balloon catheter was advanced across lesion in the right coronary, mid. Yolie ogram performed post stent deployment. Angiogram performed pre balloon dilatation. Post Stent PTCA ba lloon inflated at 12 atms for 9 secs. Angiogram performed post balloon dilatation. Angiogram performe d post balloon dilatation. Angiogram performed to iliac. Arterial sheath was exchanged from a 45cm 6 Fr sheath for a 11cm 6 Fr Sheath. Angiogram performed to iliac for possible closure The arterial sh eath was sutured in place and capped INTERVENTION INFORMATION LESION SITE: RCA (Mid) Lesion Complexity: Non-High/Non-C, lesion at bifurcation: No, thrombus present: No, lesion length: 16 mm, culprit lesion: Yes Pre Stenosis: 75 % Pre intervention MORIAH flow: 3 PROCEDURE: Drug Eluting Stent with pre and post dilatation Post Stenosis: 0 % Post intervention MORIAH flow: 3 Lesion Devices: Navarro .014 BMW Bannister Straight 190cm Osito Sci EMERGE MR 2.00x12 BALLOON Medtronic 6 Fr HSII 100cm Guide Catheter Osito Sci EMERGE MR 2.00x12 BALLOON Osito Sci Synergy MR FRACISCO 4.00x16 Osito Sci NC EMERGE MR 4.00x08 BALLOON COMPLICATIONS No Complications PROCEDURE MEDICATIONS Versed 1 mg IV Oxygen: 2 L/min via nasal cannula Heparin 6000 unit(s) IV 07/05/2017 08:19:14 Nitro 200 mcg IC 07/05/2017 08:22:42 Nitro 200 mcg IC 07/05/2017 08:22:42 Nitro Paste 1 in 07/05/2017 08:44:28 IV Bolus: .9 NaCl 450ml total 07/05/2017 08:20:17 SUMMARY OF HEMODYNAMIC DATA Time AIR REST ECG 07:10:04 AO 145/76 (103) SA 07:25:01 Signed By Roney Gastelum MD On 07/05/2017 08:56:47 Roney Gastelum MD
--- NOTE | 2017-07-05 09:46 | EKG12_ITS ---
Test Reason : POST PCI Blood Pressure : / mmHG Vent. Rate : 047 BPM Atrial Rate : 047 BPM P-R Int : 186 ms QRS Dur : 094 ms QT Int : 478 ms P-R-T Axes : 051 -23 067 degrees QTc Int : 423 ms Sinus bradycardia Otherwise normal ECG Confirmed by LILIANA RDZ, ELSA ([id number]), market editor TREVOR SHEIKH ([id number] on 07/13/2017 3:34:30 PM Referred By: MARY ANN Confirmed By:ELSA FORD MD
--- NOTE | 2017-07-05 10:15 | CASEMGMT ---
See RN CM Assessment Link. DC PLAN: HOME -No dc needs identified. Pt states he drives, works and does not use DME. Stepan ROBERTSN RN ACM
[2017-07-05 10:17] LABS: CPK Total, Creatine Kinase 93 U/L (39-308)
[2017-07-05 10:18] LABS: Hematocrit 42.6 % (40-54); Hemoglobin 14.5 g/dl (13.0-16.5); Mean Corpuscular Hgb 31.7 pg (27.0-32.0); Mean Platelet Vol. 9.8 fl (6.2-12.0); Platelet Count 188 K/mm3 (150-450); RBC Distribution Width CV 12.5 % (11.6-14.6); RBC Distribution Width SD 41.9 fl (35.1-43.9); Red Blood Count 4.58 M/mm3 (4.6-6.2); Scan Indicated on CBC? Y/N NO; White Blood Count 5.5 K/mm3 (4.4-11.0)
[2017-07-05 10:56] LABS: ACT Activated Clotting Time 120 sec (74-137)
[2017-07-05] MEDS: 0.9% Normal Saline 1,000 ML 150 ML IV (13:00)
--- NOTE | 2017-07-05 13:13 | CRPHASE1 ---
Patient Data/Charges Phase II Referral:: [facility] - FOLLOWING OFFICE VISIT WITH ROLL FORMER Risk Factors/Lifestyle Smoking Status: Former smoker Hx Hypertension: Yes Hx Diabetes Mellitus Type 1: No Hx Diabetes Mellitus Type 2: No Hx Metabolic Disorders: Yes Hx Dyslipidemia: Yes Hx Obesity: Yes Height: 5 ft 8 in - BMI 40.4 Stress: Home/Family Risk Factor for Sedentary Lifestyle: Moderate Risk Laboratory Values: Cardiac Rehab Phase I Labs Triglycerides 161 mg/dL (-199) 07/05/17 04:16 Cholesterol 241 mg/dL (200) H 07/05/17 04:16 LDL Cholesterol 167 mg/dL (0-130) H 07/05/17 04:16 HDL Cholesterol 42 mg/dL (40-) 07/05/17 04:16 Phase I Education Given On:: [place], Nutrition, Antiplatelet medication Issues Affecting Care:: None Knowledge of Condition:: Yes Learning Preferences: Verbal, Written Hospital Course Presenting Symptoms:: UNSTABLE ANGINA Medical/Surgical History [place]:: No Angina:: Yes - UNSTABLE ANGINA ADAN:: Yes Diabetes:: No Hypertension:: Yes Dyslipidemia:: Yes Renal:: Yes - STAGE 3 Anxiety:: Yes Discharge/Home/Social Eval Discharge Disposition: Home
--- NOTE | 2017-07-05 13:17 | CRPHASE1_ITS ---
Patient Data/Charges Phase II Referral:: [facility] - FOLLOWING OFFICE VISIT WITH BATCH UNIT TREATER Risk Factors/Lifestyle Smoking Status: Former smoker Hx Hypertension: Yes Hx Diabetes Mellitus Type 1: No Hx Diabetes Mellitus Type 2: No Hx Metabolic Disorders: Yes Hx Dyslipidemia: Yes Hx Obesity: Yes Height: 5 ft 8 in - BMI 40.4 Stress: Home/Family Risk Factor for Sedentary Lifestyle: Moderate Risk Laboratory Values: Cardiac Rehab Phase I Labs Triglycerides 161 mg/dL (-199) 07/05/17 04:16 Cholesterol 241 mg/dL (200) H 07/05/17 04:16 LDL Cholesterol 167 mg/dL (0-130) H 07/05/17 04:16 HDL Cholesterol 42 mg/dL (40-) 07/05/17 04:16 Phase I Education Given On:: [place], Nutrition, Antiplatelet medication Issues Affecting Care:: None Knowledge of Condition:: Yes Learning Preferences: Verbal, Written Hospital Course Presenting Symptoms:: UNSTABLE ANGINA Medical/Surgical History [place]:: No Angina:: Yes - UNSTABLE ANGINA ADAN:: Yes Diabetes:: No Hypertension:: Yes Dyslipidemia:: Yes Renal:: Yes - STAGE 3 Anxiety:: Yes Discharge/Home/Social Eval Discharge Disposition: Home
--- NOTE | 2017-07-05 13:19 | CRPH1.INST_ITS ---
General Education CAD and cardiac anatomy and function:: Patient communicates acknowledgment Explanation of diagnoses and procedures:: Patient communicates acknowledgment Sign/Symptoms of AR:: Patient communicates acknowledgment Antiplatelet therapy: Patient communicates acknowledgment Proper use of NTG-SL: Patient communicates acknowledgment Emergency procedures and activation of EMS: Patient communicates acknowledgment Compliance of all prescribed medications: Patient communicates acknowledgment Smoking Recommendations Include:: Previous smoker; encourage continued cessation Nicotine/Smoking Response Code:: Patient communicates acknowledgment Dyslipidemia Patient Dyslipidemia Risk Factors Are:: Total Cholesterol, Triglycerides, HDL, LDL Recommendations Include:: Lipid profile not available, Reviewed NCEP/ATP guidelines, Therapeutic Lifestyle Change dietary guidelines Dyslipidemia Response Code:: Patient communicates acknowledgment Overweight/Obesity Patient Overweight/Obesity Risk Factors Are:: Obesity - > or = 30 Recommendations Include:: Weight loss of 5-10%, Reduced calorie diet, Exercise 5 -7 times/week Overweight/Obesity:: Patient communicates acknowledgment Hypertension Recommendations Include:: Maintain BP <130/85, DASH dietary guidelines, Decrease /maintain normal body weight, Moderation of ETOH Hypertension:: Patient communicates acknowledgment Heart Disease Patient Heart Disease Risk Factors Are:: Previous cardiac event Recommendations Include:: Educated family members of their risk Heart Disease Response Code:: Patient communicates acknowledgment Diabetes Patient Diabetes Risk Factors Are:: No documented hx of diabetes Metabolic Syndrome Patient Metabolic Syndrome Risk Factors Are [3 of 5]:: Waist circumference > 35 [female] or 40 [male], High triglyceride >150, Hypertension Recommendations Include:: Reinforce compliance to risk factor modifications, Encouraged follow-up with Primary Care Physician Metabolic Syndrome Response Code:: Patient communicates acknowledgment Sedentary Recommendations Include:: Aerobic exercise 5-7 times/week for 20-30 minutes continuously, Benefits of regular exercise, Discussed home walking program, Monitored Outpatient Cardiac Rehab Sedentary Response Code:: Patient communicates acknowledgment Stress Recommendations Include:: Identification of stressors, and assessment of coping skills, Stress management techniques Stress Response Code:: Patient communicates acknowledgment
--- NOTE | 2017-07-05 13:38 | PCM.PROGNOTE ---
Patient Problems: Active and Suspected Problems (Last Updated 07/05/17 @ 10:48 by Rebekah Quesada) Angina of effort (Acute) History of PTCA (Acute) Left main in 1999 and LAD in 2005 - both at [facility] Former cigarette smoker (Acute) Colon polyps (Acute) BPH (benign prostatic hyperplasia) (Acute) Anxiety and depression (Acute) Subjective: Pt resting comfortably in bed s/p heart cath and distal rca stent this AM. No CP, tightness, pressure, SOB, palp, dizziness, LH, nausea, vomiting. - Physical Exam General: Alert, Oriented x3, Cooperative HEENT: Atraumatic, PERRLA, EOMI, Normocephalic Neck: Supple, No JVD, Negative Carotid Bruits Lungs: Clear to auscultation, Normal air movement Cardiovascular: Regular rate, No murmurs Abdomen: Bowel Sounds Present, Soft, Non Tender Extremities: No edema, Capillary Refill Less than 3 Seconds Skin: No rashes, No breakdown Musculoskeletal: No Tenderness to Palpation of Joints or Extremities Neurological: Cranial nerves II-XII grossly intact Psych/Mental Status: Normal Affect, Appropriate, Alert and oriented to time, place, person, mood and affect Vital Signs Temp Pulse Resp BP Pulse Ox 98.9 F 52 L 18 130/72 H 96 07/05/17 09:05 07/05/17 12:30 07/05/17 12:30 07/05/17 12:30 07/05/17 12:30 Oxygen Delivery Method Room Air Laboratory Tests Past 24 Hrs 07/05/17 10:46 Activated Clotting Time 120 Medical Necessity - Tobacco Use Smoking Status: Former smoker Tobacco Use: Non-smoker Assessment/Plan Active and Suspected Problems (Last Updated 07/05/17 @ 10:48 by Rebekah Quesada) Angina of effort (Acute) History of PTCA (Acute) Left main in 1999 and LAD in 2006 - both at [facility] Former cigarette smoker (Acute) Colon polyps (Acute) BPH (benign prostatic hyperplasia) (Acute) Anxiety and depression (Acute) 1. Chest pain , Hx of CAD w/ prior stent- negative EKG/negative troponin. s/p RCA stent today. LDL 167. Continue asa/plavix/statin/arb/metoprolol. Prior LAD stent. Former smoker. Echo with EF60%, 1+ TVI, PASP 39 mmHg 2. Morbid Obesity - dietary consult 3. HLD - statin initiated, recheck as o/p and adjust for goal of 70 ldl. 4. HTN - stable 5. Anx/depression - home meds. 6. CKD III - stable DC planning: home if stable tomorrow DVT ppx: SCDs This patient was seen by Bib Izquierdo PA-C under the supervision of Doctor Bernardo.
--- NOTE | 2017-07-05 13:46 | PN_ITS ---
Patient Problems: Active and Suspected Problems (Last Updated 07/05/17 @ 10:48 by Rebekah Quesada) Angina of effort (Acute) History of PTCA (Acute) Left main in 1999 and LAD in 2005 - both at [facility] Former cigarette smoker (Acute) Colon polyps (Acute) BPH (benign prostatic hyperplasia) (Acute) Anxiety and depression (Acute) Subjective: Pt resting comfortably in bed s/p heart cath and distal rca stent this AM. No CP , tightness, pressure, SOB, palp, dizziness, LH, nausea, vomiting. - Physical Exam General: Alert, Oriented x3, Cooperative HEENT: Atraumatic, PERRLA, EOMI, Normocephalic Neck: Supple, No JVD, Negative Carotid Bruits Lungs: Clear to auscultation, Normal air movement Cardiovascular: Regular rate, No murmurs Abdomen: Bowel Sounds Present, Soft, Non Tender Extremities: No edema, Capillary Refill Less than 3 Seconds Skin: No rashes, No breakdown Musculoskeletal: No Tenderness to Palpation of Joints or Extremities Neurological: Cranial nerves II-XII grossly intact Psych/Mental Status: Normal Affect, Appropriate, Alert and oriented to time, place, person, mood and affect Vital Signs Temp Pulse Resp BP Pulse Ox 98.9 F 52 L 18 130/72 H 96 07/05/17 09:05 07/05/17 12:30 07/05/17 12:30 07/05/17 12:30 07/05/17 12:30 Oxygen Delivery Method Room Air Laboratory Tests Past 24 Hrs 07/05/17 10:46 Activated Clotting Time 120 Medical Necessity - Tobacco Use Smoking Status: Former smoker Tobacco Use: Non-smoker Assessment/Plan Active and Suspected Problems (Last Updated 07/05/17 @ 10:48 by Rebekah Quesada) Angina of effort (Acute) History of PTCA (Acute) Left main in 1999 and LAD in 2006 - both at [facility] Former cigarette smoker (Acute) Colon polyps (Acute) BPH (benign prostatic hyperplasia) (Acute) Anxiety and depression (Acute) 1. Chest pain , Hx of CAD w/ prior stent- negative EKG/negative troponin. s/p RCA stent today. LDL 167. Continue asa/plavix/statin/arb/metoprolol. Prior LAD stent. Former smoker. Echo with EF60%, 1+ TVI, PASP 39 mmHg 2. Morbid Obesity - dietary consult 3. HLD - statin initiated, recheck as o/p and adjust for goal of 70 ldl. 4. HTN - stable 5. Anx/depression - home meds. 6. CKD III - stable DC planning: home if stable tomorrow DVT ppx: SCDs This patient was seen by Bib Izquierdo PA-C under the supervision of Doctor Bernardo.
[2017-07-05] MEDS: Pantoprazole Sodium 40 MG Tablet PO ×2 (15:09→23:13)
[2017-07-05] MEDS: Nitroglycerin Oint 1 INCH PACKET TRANSDERM. ×3 (15:10→23:13)
[2017-07-05 16:45] LABS: Hematocrit 42.2 % (40-54); Hemoglobin 14.2 g/dl (13.0-16.5); Mean Corp Hgb Conc 33.6 g/gl (32-36); Mean Corpuscular Hgb 31.2 pg (27.0-32.0); Mean Corpuscular Volume 92.7 fL (80-94); Mean Platelet Vol. 9.5 fl (6.2-12.0); Platelet Count 178 K/mm3 (150-450); RBC Distribution Width CV 12.9 % (11.6-14.6); RBC Distribution Width SD 43.3 fl (35.1-43.9); Red Blood Count 4.55 M/mm3 (4.6-6.2); White Blood Count 6.1 K/mm3 (4.4-11.0)
[2017-07-05 16:51] LABS: Scan Indicated on CBC? Y/N NO
[2017-07-05 16:54] LABS: CPK Total, Creatine Kinase 75 U/L (39-308)
[2017-07-05] MEDS: lamoTRIgine 25 MG Tablet PO (17:42)
[2017-07-05 22:02] LABS: Hematocrit 44.2 % (40-54); Hemoglobin 14.9 g/dl (13.0-16.5); Mean Corp Hgb Conc 33.7 g/gl (32-36); Mean Corpuscular Hgb 31.5 pg (27.0-32.0); Mean Corpuscular Volume 93.4 fL (80-94); Mean Platelet Vol. 9.5 fl (6.2-12.0); Platelet Count 187 K/mm3 (150-450); RBC Distribution Width CV 12.9 % (11.6-14.6); RBC Distribution Width SD 44.4 fl (35.1-43.9); Red Blood Count 4.73 M/mm3 (4.6-6.2); White Blood Count 7.9 K/mm3 (4.4-11.0)
[2017-07-05 22:03] LABS: Scan Indicated on CBC? Y/N NO
[2017-07-05 22:17] LABS: CPK Total, Creatine Kinase 79 U/L (39-308)
[2017-07-05] MEDS: Atorvastatin Calcium 40 MG Tablet PO (23:13)
[2017-07-06] VITALS (12 sets, daily range): BP systolic 107–129; BP diastolic 37–77; PULSE 55–77; RESP 14–21; TEMP 36.8–37.1; O2SAT 92–96
[2017-07-06 04:05] LABS: Hematocrit 40.9 % (40-54); Hemoglobin 13.8 g/dl (13.0-16.5); Mean Corp Hgb Conc 33.7 g/gl (32-36); Mean Corpuscular Hgb 31.4 pg (27.0-32.0); Mean Platelet Vol. 10.1 fl (6.2-12.0); Platelet Count 192 K/mm3 (150-450); RBC Distribution Width CV 12.9 % (11.6-14.6); RBC Distribution Width SD 43.6 fl (35.1-43.9); White Blood Count 7.7 K/mm3 (4.4-11.0)
[2017-07-06 04:06] LABS: Scan Indicated on CBC? Y/N NO
[2017-07-06 04:57] LABS: Anion Gap 8 (5-15); BUN 14 mg/dL (7-18); BUN/Creat Ratio 12.6 RATIO (10-20); Calcium,Total 7.9 mg/dL (8.5-10.1); Chloride 106 mmol/L (98-107); Cholesterol 193 mg/dL (200); Creatinine, Serum 1.11 mg/dL (0.70-1.30); EST Glomerular Filtration Rate 69 mL/min (>60); Est Glom Filt Rate - Afr Amer 84 mL/min (>60); Estimated Creatinine Clearance 59.91 ml/min; Glucose 97 mg/dL (74-106); High Density Lipoprotein 40 mg/dL; Potassium 4.3 mmol/L (3.5-5.1); Sodium Level 140 mmol/L (136-145); Triglycerides 117 mg/dL; Very Low Density Lipoprotein 23 mg/dL (5-40)
[2017-07-06] MEDS: Nitroglycerin Oint 1 INCH PACKET TRANSDERM. (05:40)
--- NOTE | 2017-07-06 05:55 | EKG12_ITS ---
Test Reason : AM EKG Blood Pressure : / mmHG Vent. Rate : 062 BPM Atrial Rate : 062 BPM P-R Int : 182 ms QRS Dur : 102 ms QT Int : 444 ms P-R-T Axes : 060 -26 057 degrees QTc Int : 450 ms Normal sinus rhythm Normal ECG Confirmed by LILIANA RDZ, ELSA ([id number]), editor map TREVOR SHEIKH ([id number]) on 07/13/2017 3:32:13 PM Referred By: AIRAM Confirmed By:ELSA FORD MD
--- NOTE | 2017-07-06 07:18 | PN.CARD_ITS ---
Subjectve: Patient seen and evaluated. Appears to be doing well no groin issues and no chest pain. Objective: Vital Signs Temp Pulse Resp BP Pulse Ox 98.2 F 64 21 H 129/69 H 95 07/06/17 00:00 07/06/17 05:58 07/06/17 05:58 07/06/17 05:58 07/06/17 05:58 Oxygen Delivery Method Room Air Weight: 279 lb 15.793 oz Intake and Output for Last 24 Hours 07/04/17 07/05/17 07/06/17 23:59 23:59 23:59 Intake Total 1193 / 1193 480 / 480 Output Total 1050 / 1050 300 / 300 Balance 143 / 143 180 / 180 General: Awake, Alert, Oriented x 3 HEENT: PERRL, EOMI, Sclera Non Icteric Neck: Supple, Good ROM, No Lymph Node Enlargement Lungs: Clear to auscultation Cardiovascular: Regular Rhythm, Normal S1, Normal S2, No Murmurs, No Rubs, No Gallops Vascular: No Carotid Bruits, Normal Femoral Pulses, Normal Radial Pulses, Normal Dorsalis Pedal Pulse, Normal Posterior Tibial Pulses Abdomen: Bowel Sounds Present, Soft, Non Tender, No HSM, No Organomegaly Extremities: No Cyanosis, No Clubbing, No edema Neurological: No Focal Motor or Sensory Deficit 07/05/17 16:00: WBC 6.1, RBC 4.55 L, Hgb 14.2, Hct 42.2, MCV 92.7, MCH 31.2, MCHC 33.6, RDW 12.9, RDW Differential 43.3, Plt Count 178, MPV 9.5 07/05/17 21:50: WBC 7.9, RBC 4.73, Hgb 14.9, Hct 44.2, MCV 93.4, MCH 31.5, MCHC 33.7, RDW 12.9, RDW Differential 44.4 H, Plt Count 187, MPV 9.5 07/06/17 03:50: Sodium 140, Potassium 4.3, Chloride 106, Carbon Dioxide 26.0, Anion Gap 8, BUN 14, Creatinine 1.11, Est GFR (MDRD) Af Amer 84, Est GFR (MDRD) Non-Af 69, BUN/Creatinine Ratio 12.6, Glucose 97, Calcium 7.9 L, Triglycerides 117, Cholesterol 193, LDL Cholesterol 130, VLDL Cholesterol 23, HDL Cholesterol 40 05//18 03:50: WBC 7.7, RBC 4.40 L, Hgb 13.8, Hct 40.9, MCV 93.0, MCH 31.4, MCHC 33.7, RDW 12.9, RDW Differential 43.6, Plt Count 192, MPV 10.1 Rhythm: EKG: ECHO: Stress Test: Cardiac Cath: PCI: CT Surgery: Holter monitor: EPS: PPM: CXR: Chest CT Scan: Medical Necessity - Tobacco Use Smoking Status: Former smoker - quit in 1999 Tobacco Use: Non-smoker Assessment/Plan 1. Chest discomfort Mr. Walters has a history of coronary artery disease and is status post previous angioplasty and stenting. He presented with chest discomfort which appeared to be worsening with increased frequency and with less provocation. His cardiac catheterization demonstrated the following: Normal left main coronary artery. Left anterior descending artery with mild disease. Left circumflex artery with mild disease Dominant right coronary artery with high-grade 80-90% stenosis in the mid to distal region. The above was angioplastied and stented with a 4.0 was drug- eluting stent. No complications were noted. Patient's hemoglobin has remained stable with no drop and creatinine has also remained stable with no rise. No groin complications were noted. EKG demonstrates normal sinus rhythm this morning with no acute changes. Plan will be to discharge patient this morning on aspirin clopidogrel lower dose beta-adrian and high intensity statin and have him follow-up in my office. 2. Valvular heart disease. He does have evidence of mild aortic regurgitation. He has a previous history of rheumatic heart disease but at this time I do not see any rheumatic deformity of his mitral valve. We will continue to follow him closely he does have preserved left ventricular systolic function. 3. Hypertension. He does have a history of hypertension which is currently well controlled and will continue to aggressively manage him with beta-adrian and calcium channel adrian combination. 4. Obesity Exercise and diet have been emphasized to him as a way of modifying his risk factors. He would also continue on high intensity statin. Thank you for allowing me to participate in the care of your patient. Please don't hesitate to call if any issues arise
--- NOTE | 2017-07-06 07:36 | PCM.DC ---
- Discharge Diagnoses Current Active Problems: Current Active and Chronic Problems (Last Updated 07/05/17 @ 10:48 by Rebekah Quesada) Angina of effort (Acute) HTN (hypertension) (Chronic) Morbid obesity (Chronic) CAD (coronary artery disease) (Chronic) History of PTCA (Acute) Left main in 1999 and LAD in 2005 - both at [facility] Former cigarette smoker (Acute) Colon polyps (Acute) BPH (benign prostatic hyperplasia) (Acute) Anxiety and depression (Acute) Chronic renal failure, stage 3 (moderate) (Chronic) ADAN (obstructive sleep apnea) (Chronic) semi-compliant with BIPAP You will use the following diet at home:: Cardiac Your food should be the consistency of: Regular Your liquids should be the consistency of: Regular/Thin Discharge Activity: - - Start a walking program and walk at least 5 days a week. Work up to 30 minutes a day. No hills to start. May shower in (days): 1 May resume sexual activity in: 10-14 days Weight Bearing Status: Full weight bearing Lifting Restrictions: 10 lbs for the next 2 weeks Call your doctor if your incision/area has: Continuous Slow Oozing, Sudden Increased Bleeding, Increased Pain/ Swelling, Increased Redness, Foul Smelling Discharge, Swelling at the incision site Call your doctor if you observe: Fever of 101 or Higher, Shortness of breath, Dizziness, Fainting spells, Swelling in the ankles, Chest pain, Calf discomfort Remove Dressing in (days):: 1 Cleanse incision/area with: Soap & Water Additional Instructions: 1. I am referring you to the pulmonary office to arrange for a new sleep study so the CPAP pressure can be appropriately titrated. Their office is in the new outpatient building adjacent to the hospital behind [facility]. This is important......the pressure on the machine now is likely inadequate because you have gained weight. 2. Try and lose some weight. The repack room worker's at the hospital have a program they run in the hospital for outpatients to help with weight loss. The program is called [facility]. All you need is a referral from Dr. Beach or your PCP and then make an appt. Losing weight is not an easy task....I know this from personal experience. It is betito difficult if you have untreated sleep apnea and you are not getting adequate restful sleep. People with sleep apnea are always tired and usually depression comes with it. When we are depressed we will find comfort AND for some of us FOOD is that comfort. Get your sleep apnea appropriately treated....it will make you feel better and you will be more motivated to follow a diet and exercise. Pending Tests on Discharge: none Allergies/Adverse Reactions: Allergies Sulfa (Sulfonamide Antibiotics) Allergy (Verified 07/04/17 09:32) Unknown Medications to take at Discharge Lamotrigine [Lamictal] 25 mg PO DAILY 07/04/17 Pantoprazole Sodium [Protonix] 80 mg PO BID 07/04/17 Paroxetine HCl [Paxil] 20 mg PO DAILY 07/04/17 Aspirin E.C. [Ecotrin] 81 mg PO DAILY@0800 tablet 07/06/17 Atorvastatin Calcium [Lipitor] 40 mg PO QHS #30 tab 07/06/17 Clopidogrel Bisulfate [Plavix] 75 mg PO DAILY #30 tab 07/06/17 Metoprolol Tartrate [Lopressor (beta adrian)] 12.5 mg PO BID #30 tab 07/06/17 Nitroglycerin [Nitrostat] 0.4 mg SUBLINGUAL Q5M PRN #1 bottle 07/06/17 Valsartan [Diovan] 80 mg PO DAILY #30 tab 07/06/17 The following prescriptions were given: Atorvastatin Calcium [Lipitor] 40 mg PO QHS #30 tab Clopidogrel Bisulfate [Plavix] 75 mg PO DAILY #30 tab Nitroglycerin [Nitrostat] 0.4 mg SUBLINGUAL Q5M PRN #1 bottle PRN Reason: Chest Pain Valsartan [Diovan] 80 mg PO DAILY #30 tab Metoprolol Tartrate [Lopressor (beta adrian)] 12.5 mg PO BID #30 tab Primary Care Physician: Darrell Aggarwal [NON-STAFF] - Please follow up with your Primary Care Physician in: 2 weeks Please Follow Up With: Butch Beach MD When: 2 weeks Proposed Discharge Date: 07/06/17
--- NOTE | 2017-07-06 07:46 | DCINST_ITS ---
- Discharge Diagnoses Current Active Problems: Current Active and Chronic Problems (Last Updated 07/05/17 @ 10:48 by Rebekah Quesada ) Angina of effort (Acute) HTN (hypertension) (Chronic) Morbid obesity (Chronic) CAD (coronary artery disease) (Chronic) History of PTCA (Acute) Left main in 1999 and LAD in 2005 - both at [facility] Former cigarette smoker (Acute) Colon polyps (Acute) BPH (benign prostatic hyperplasia) (Acute) Anxiety and depression (Acute) Chronic renal failure, stage 3 (moderate) (Chronic) ADAN (obstructive sleep apnea) (Chronic) semi-compliant with BIPAP You will use the following diet at home:: Cardiac Your food should be the consistency of: Regular Your liquids should be the consistency of: Regular/Thin Discharge Activity: - - Start a walking program and walk at least 5 days a week. Work up to 30 minutes a day. No hills to start. May shower in (days): 1 May resume sexual activity in: 10-14 days Weight Bearing Status: Full weight bearing Lifting Restrictions: 10 lbs for the next 2 weeks Call your doctor if your incision/area has: Continuous Slow Oozing, Sudden Increased Bleeding, Increased Pain/ Swelling, Increased Redness, Foul Smelling Discharge, Swelling at the incision site Call your doctor if you observe: Fever of 101 or Higher, Shortness of breath, Dizziness, Fainting spells, Swelling in the ankles, Chest pain, Calf discomfort Remove Dressing in (days):: 1 Cleanse incision/area with: Soap & Water Additional Instructions: 1. I am referring you to the pulmonary office to arrange for a new sleep study so the CPAP pressure can be appropriately titrated. Their office is in the new outpatient building adjacent to the hospital behind [facility]. This is important......the pressure on the machine now is likely inadequate because you have gained weight. 2. Try and lose some weight. The hob mill operator's at the hospital have a program they run in the hospital for outpatients to help with weight loss. The program is called [facility]. All you need is a referral from Dr. Beach or your PCP and then make an appt. Losing weight is not an easy task....I know this from personal experience. It is betito difficult if you have untreated sleep apnea and you are not getting adequate restful sleep. People with sleep apnea are always tired and usually depression comes with it. When we are depressed we will find comfort AND for some of us FOOD is that comfort. Get your sleep apnea appropriately treated....it will make you feel better and you will be more motivated to follow a diet and exercise. Pending Tests on Discharge: none Allergies/Adverse Reactions: Allergies Sulfa (Sulfonamide Antibiotics) Allergy (Verified 07/04/17 09:32) Unknown Medications to take at Discharge Lamotrigine [Lamictal] 25 mg PO DAILY 07/04/17 Pantoprazole Sodium [Protonix] 80 mg PO BID 07/04/17 Paroxetine HCl [Paxil] 20 mg PO DAILY 07/04/17 Aspirin E.C. [Ecotrin] 81 mg PO DAILY@0800 tablet 07/06/17 Atorvastatin Calcium [Lipitor] 40 mg PO QHS #30 tab 07/06/17 Clopidogrel Bisulfate [Plavix] 75 mg PO DAILY #30 tab 07/06/17 Metoprolol Tartrate [Lopressor (beta adrian)] 12.5 mg PO BID #30 tab 07/06/17 Nitroglycerin [Nitrostat] 0.4 mg SUBLINGUAL Q5M PRN #1 bottle 07/06/17 Valsartan [Diovan] 80 mg PO DAILY #30 tab 07/06/17 The following prescriptions were given: Atorvastatin Calcium [Lipitor] 40 mg PO QHS #30 tab Clopidogrel Bisulfate [Plavix] 75 mg PO DAILY #30 tab Nitroglycerin [Nitrostat] 0.4 mg SUBLINGUAL Q5M PRN #1 bottle PRN Reason: Chest Pain Valsartan [Diovan] 80 mg PO DAILY #30 tab Metoprolol Tartrate [Lopressor (beta adrian)] 12.5 mg PO BID #30 tab Primary Care Physician: Darrell Aggarwal [NON-STAFF] - Please follow up with your Primary Care Physician in: 2 weeks Please Follow Up With: Butch Beach MD When: 2 weeks Proposed Discharge Date: 07/06/17
--- NOTE | 2017-07-06 08:25 | PCM.DC.SUM ---
Discharge Date and Diagnosis - Problem List Patient Problems: Active and Suspected Problems (Last Updated 07/05/17 @ 10:48 by Rebekah Quesada) Angina of effort (Acute) Anxiety and depression (Acute) Date of Admission: 07/04/17 Date of Discharge: 07/06/17 - Primary Discharge Diagnosis Active and Suspected Problems (Last Updated 07/05/17 @ 10:48 by Rebekah Quesada) Angina of effort (Acute) Occluded R coronary artery PTCA/FRACISCO RCA 07/[address] Gastelum - Secondary Discharge Diagnosis Chronic Problems (Last Updated 07/05/17 @ 10:48 by Rebekah Quesada) Aortic insufficiency (Chronic) HTN (hypertension) (Chronic) Morbid obesity (Chronic) CAD (coronary artery disease) (Chronic) History of PTCA (Chronic) Left main in 1999 and LAD in 2005 - both at [facility]. PTCA/FRACISCO RCA 07/05/17 Former cigarette smoker (Chronic) Tobacco chewer Colon polyps (Chronic) BPH (benign prostatic hyperplasia) (Chronic) Chronic renal failure, stage 3 (moderate) (Chronic) ADAN (obstructive sleep apnea) (Chronic) semi-compliant with [facility] Hospital Course and Treatment Imaging Results: Clinical Impression(s) from Imaging Studies Chest X-Ray 07/04/17 09:52 IMPRESSION: Normal x-ray examination of the chest. Electronically Signed: Pierre Lin MD at 10:25 EDT Tel [phone], Service support , Laboratory Tests 07/04/17 07/04/17 07/04/17 09:50 09:50 12:25 WBC 5.4 RBC 4.93 Hgb 15.8 Hct 45.9 MCV 93.1 MCH 32.0 MCHC 34.4 RDW 12.7 RDW Differential 42.4 Plt Count 199 MPV 9.4 Immature Gran % (Auto) 0.000 Neut % (Auto) 68.8 Lymph % (Auto) 21.3 [place] % (Auto) 5.6 Eos % (Auto) 3.6 Baso % (Auto) 0.7 Absolute Neuts (auto) 3.7 Absolute Lymphs (auto) 1.14 Total Counted Not Reportable PT INR APTT Activated Clotting Time Sodium 139 Potassium 4.9 Chloride 104 Carbon Dioxide 28.0 Anion Gap 7 BUN 14 Creatinine 1.28 Estim Creat Clear Calc 57.19 Est GFR (MDRD) Af Amer 71 Est GFR (MDRD) Non-Af 59 L BUN/Creatinine Ratio 10.9 Glucose 127 H Calcium 8.8 Total Creatine Kinase Troponin I < 0.015 < 0.015 Triglycerides Cholesterol LDL Cholesterol VLDL Cholesterol HDL Cholesterol 07/04/17 07/05/17 07/05/17 16:10 04:16 04:16 WBC 5.5 RBC 4.54 L Hgb 14.5 Hct 42.6 MCV 93.8 MCH 31.9 MCHC 34.0 RDW 12.7 RDW Differential 42.4 Plt Count 178 MPV 9.6 Immature Gran % (Auto) 0.000 Neut % (Auto) 59.4 Lymph % (Auto) 26.3 [place] % (Auto) 9.6 Eos % (Auto) 4.0 Baso % (Auto) 0.7 Absolute Neuts (auto) 3.3 Absolute Lymphs (auto) 1.45 Total Counted Not Reportable PT 14.0 INR 1.1 APTT 27.4 Activated Clotting Time Sodium Potassium Chloride Carbon Dioxide Anion Gap BUN Creatinine Estim Creat Clear Calc Est GFR (MDRD) Af Amer Est GFR (MDRD) Non-Af BUN/Creatinine Ratio Glucose Calcium Total Creatine Kinase Troponin I < 0.015 Triglycerides Cholesterol LDL Cholesterol VLDL Cholesterol HDL Cholesterol 07/05/17 07/05/17 07/05/17 04:16 04:16 08:42 WBC RBC Hgb Hct MCV MCH MCHC RDW RDW Differential Plt Count MPV Immature Gran % (Auto) Neut % (Auto) Lymph % (Auto) [place] % (Auto) Eos % (Auto) Baso % (Auto) Absolute Neuts (auto) Absolute Lymphs (auto) Total Counted PT INR APTT Activated Clotting Time 186 H Sodium 144 Potassium 4.1 Chloride 107 Carbon Dioxide 29.0 Anion Gap 8 BUN 15 Creatinine 1.09 Estim Creat Clear Calc 65.11 Est GFR (MDRD) Af Amer 86 Est GFR (MDRD) Non-Af 71 BUN/Creatinine Ratio 13.8 Glucose 91 Calcium 8.1 L Total Creatine Kinase Troponin I Triglycerides 161 Cholesterol 241 H LDL Cholesterol 167 H VLDL Cholesterol 32 HDL Cholesterol 42 07/05/17 07/05/17 07/05/17 09:31 09:31 10:46 WBC 5.5 RBC 4.58 L Hgb 14.5 Hct 42.6 MCV 93.0 MCH 31.7 MCHC 34.0 RDW 12.5 RDW Differential 41.9 Plt Count 188 MPV 9.8 Immature Gran % (Auto) Neut % (Auto) Lymph % (Auto) [place] % (Auto) Eos % (Auto) Baso % (Auto) Absolute Neuts (auto) Absolute Lymphs (auto) Total Counted PT INR APTT Activated Clotting Time 120 Sodium Potassium Chloride Carbon Dioxide Anion Gap BUN Creatinine Estim Creat Clear Calc Est GFR (MDRD) Af Amer Est GFR (MDRD) Non-Af BUN/Creatinine Ratio Glucose Calcium Total Creatine Kinase 93 Troponin I Triglycerides Cholesterol LDL Cholesterol VLDL Cholesterol HDL Cholesterol 07/05/17 07/05/17 07/05/17 16:00 16:00 21:50 WBC 6.1 7.9 RBC 4.55 L 4.73 Hgb 14.2 14.9 Hct 42.2 44.2 MCV 92.7 93.4 MCH 31.2 31.5 MCHC 33.6 33.7 RDW 12.9 12.9 RDW Differential 43.3 44.4 H Plt Count 178 187 MPV 9.5 9.5 Immature Gran % (Auto) Neut % (Auto) Lymph % (Auto) [place] % (Auto) Eos % (Auto) Baso % (Auto) Absolute Neuts (auto) Absolute Lymphs (auto) Total Counted PT INR APTT Activated Clotting Time Sodium Potassium Chloride Carbon Dioxide Anion Gap BUN Creatinine Estim Creat Clear Calc Est GFR (MDRD) Af Amer Est GFR (MDRD) Non-Af BUN/Creatinine Ratio Glucose Calcium Total Creatine Kinase 75 Troponin I Triglycerides Cholesterol LDL Cholesterol VLDL Cholesterol HDL Cholesterol 07/05/17 07/06/17 07/06/17 21:50 03:50 03:50 WBC 7.7 RBC 4.40 L Hgb 13.8 Hct 40.9 MCV 93.0 MCH 31.4 MCHC 33.7 RDW 12.9 RDW Differential 43.6 Plt Count 192 MPV 10.1 Immature Gran % (Auto) Neut % (Auto) Lymph % (Auto) [place] % (Auto) Eos % (Auto) Baso % (Auto) Absolute Neuts (auto) Absolute Lymphs (auto) Total Counted PT INR APTT Activated Clotting Time Sodium 140 Potassium 4.3 Chloride 106 Carbon Dioxide 26.0 Anion Gap 8 BUN 14 Creatinine 1.11 Estim Creat Clear Calc 59.91 Est GFR (MDRD) Af Amer 84 Est GFR (MDRD) Non-Af 69 BUN/Creatinine Ratio 12.6 Glucose 97 Calcium 7.9 L Total Creatine Kinase 79 Troponin I Triglycerides 117 Cholesterol 193 LDL Cholesterol 130 VLDL Cholesterol [address] Butch Beach-cardiology/[facility] Operations: None Procedures: Cardiac catheterization - with PTCA and FRACISCO RCA Summary of Care Provided: The patient is a 71 year old M with a PMH of coronary artery disease, PTCA/stent of left main coronary artery in 1999, PTCA/stent of LAD in 2005, hypertension, anxiety/depression, morbid obesity, BPH, colon polyps, ADAN, CRF stage III and former smoking hx (now chews tobacco) who presented to the ED at [facility] on 07/04/2017 complaining of substernal chest discomfort with exertion. He had been having chest discomfort for the past several weeks with exertion and it was associated with shortness of breath and diaphoresis. His exercise tolerance had been decreasing and he gets CP with walking and with stairs. Vital signs at presentation to the emergency room were temperature 96.1, heart rate 60, blood pressure 192/82, respiratory rate 13 and he is 98% saturated on room air. KG shows sinus bradycardia with no ischemic changes however he was not having chest pain at the time of the EKG. Chest x-ray showed no pleural effusions, pulmonary vascular congestion or infiltrates. CBC was unremarkable. BMP showed a creatinine of 1.28 with BUN of 14. GFR was 59 which is consistent with chronic renal failure stage III. A random blood sugar was elevated at 127. 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 He was admitted to a monitored bed on PCU. Serial CE's were negative and telemetry showed no significant dysrhythmia or ectopy. Echocardiogram showed normal left ventricular systolic function with an estimated ejection fraction of 60%. The PA pressure was mildly increased at 39 and he had mild to moderate aortic valve insufficiency. He was seen by Dr. Beach and the decision was made to proceed with cardiac catheterization. Cardiac catheterization revealed 80-90% stenosis of the mid-distal RCA. He had a [id number] Promus Synergy stent inserted by Dr. Gastelum and post procedure was transferred to the Cardiac care unit. He had no significant ectopy overnight and the next day he denied chest pain, shortness of breath, palpitations. He was discharged home on aspirin, Plavix, Lopressor, high intensity statin and valsartan. He will resume his previous medications with the exception of Propanolol which has been discontinued. He was advised to quit using chewing tobacco, lose weight and start walking 5-6 times a week for 30 minutes. He will follow up with Dr. Beach in the office in 2 weeks and also with his PCP. He is also going to follow up in the pulmonary office in 2 weeks to arrange a repeat sleep study and PFT's. He has not had a sleep study in > 5 years and admits to gaining 60-70 pounds in the past 5 years. General: alert, oriented X3, NAD, appropriate with normal affect Neck: supple, trachea midline, carotids have brisk upstroke and normal pulse volume, no JVD, no carotid bruits Lungs: CTA, symmetric chest expansion, not tachypneic, able to lie flat with no respiratory distress Heart: Regular rate and rhythm, normal S1, normal S2, diastolic murmur at the second right intercostal space which radiates to the lower left sternal border., no gallop, no rub, PMI is on the midclavicular line Abdomen: soft, NT, ND, BS's present. The R groin is dry with no blood on the dressing, no swelling and no hematoma. Extremities: no edema, no calf tenderness, peripheral pulses are normal The Right groin shows no hematoma and there is no bleeding. He denies pain. This note was generated with [employer] dictation software. It may contain incorrect words, spelling, and punctuation that were not noted in checking the note before signing. Discharge Activity: - - Start a walking program and walk at least 5 days a week. Work up to 30 minutes a day. No hills to start. May shower in (days): 1 May resume sexual activity in: 10-14 days Weight Bearing Status: Full weight bearing Call your doctor if your incision/area has: Continuous Slow Oozing, Sudden Increased Bleeding, Increased Pain/ Swelling, Increased Redness, Foul Smelling Discharge, Swelling at the incision site Call your doctor if you observe: Fever of 101 or Higher, Shortness of breath, Dizziness, Fainting spells, Swelling in the ankles, Chest pain, Calf discomfort Remove Dressing in (days):: 1 Cleanse incision/area with: Soap & Water Home Medications: Medications to take at Discharge Lamotrigine [Lamictal] 25 mg PO DAILY 07/04/17 Pantoprazole Sodium [Protonix] 80 mg PO BID 07/04/17 Paroxetine HCl [Paxil] 20 mg PO DAILY 07/04/17 Aspirin E.C. [Ecotrin] 81 mg PO DAILY@0800 tablet 07/06/17 Atorvastatin Calcium [Lipitor] 40 mg PO QHS #30 tab 07/06/17 Clopidogrel Bisulfate [Plavix] 75 mg PO DAILY #30 tab 07/06/17 Metoprolol Tartrate [Lopressor (beta adrian)] 12.5 mg PO BID #30 tab 07/06/17 Nitroglycerin [Nitrostat] 0.4 mg SUBLINGUAL Q5M PRN #1 bottle 07/06/17 Valsartan [Diovan] 80 mg PO DAILY #30 tab 07/06/17 Following Prescrptions Were Given to Patient: Atorvastatin Calcium [Lipitor] 40 mg PO QHS #30 tab Clopidogrel Bisulfate [Plavix] 75 mg PO DAILY #30 tab Nitroglycerin [Nitrostat] 0.4 mg SUBLINGUAL Q5M PRN #1 bottle PRN Reason: Chest Pain Valsartan [Diovan] 80 mg PO DAILY #30 tab Metoprolol Tartrate [Lopressor (beta adrian)] 12.5 mg PO BID #30 tab Primary Care Physician: Darrell Aggarwal [NON-STAFF] - Please follow up with your Primary Care Physician in: 2 weeks Please Follow Up With: Butch Beach MD When: 2 weeks Disposition: Home Minutes spent on discharge:: 35 Patient Condition:: Good Medical Necessity - Tobacco Use Smoking Status: Former smoker - quit in 1999 Tobacco Use: Non-smoker Meaningful Use Info Meaningful Use Diagnoses (Choose all that apply): None applicable Code Visit Inpatient E&M: 92928 Disch Hosp
--- NOTE | 2017-07-06 08:54 | DS.PCM_ITS ---
Discharge Date and Diagnosis - Problem List Patient Problems: Active and Suspected Problems (Last Updated 07/05/17 @ 10:48 by Rebekah Quesada) Angina of effort (Acute) Anxiety and depression (Acute) Date of Admission: 07/04/17 Date of Discharge: 07/06/17 - Primary Discharge Diagnosis Active and Suspected Problems (Last Updated 07/05/17 @ 10:48 by Rebekah Quesada) Angina of effort (Acute) Occluded R coronary artery PTCA/FRACISCO RCA 07/[address] Gastelum - Secondary Discharge Diagnosis Chronic Problems (Last Updated 07/05/17 @ 10:48 by Rebekah Quesada) Aortic insufficiency (Chronic) HTN (hypertension) (Chronic) Morbid obesity (Chronic) CAD (coronary artery disease) (Chronic) History of PTCA (Chronic) Left main in 1999 and LAD in 2005 - both at [facility]. PTCA/FRACISCO RCA Former cigarette smoker (Chronic) Tobacco chewer Colon polyps (Chronic) BPH (benign prostatic hyperplasia) (Chronic) Chronic renal failure, stage 3 (moderate) (Chronic) ADAN (obstructive sleep apnea) (Chronic) semi-compliant with [facility] Hospital Course and Treatment Imaging Results: Clinical Impression(s) from Imaging Studies Chest X-Ray 07/04/17 09:52 IMPRESSION: Normal x-ray examination of the chest. Electronically Signed: Pierre Lin MD at 10:25 EDT Tel [phone], Service support , Laboratory Tests 07/04/17 07/04/17 07/04/17 09:50 09:50 12:25 WBC 5.4 RBC 4.93 Hgb 15.8 Hct 45.9 MCV 93.1 MCH 32.0 MCHC 34.4 RDW 12.7 RDW Differential 42.4 Plt Count 199 MPV 9.4 Immature Gran % (Auto) 0.000 Neut % (Auto) 68.8 Lymph % (Auto) 21.3 Wilcox % (Auto) 5.6 Eos % (Auto) 3.6 Baso % (Auto) 0.7 Absolute Neuts (auto) 3.7 Absolute Lymphs (auto) 1.14 Total Counted Not Reportable PT INR APTT Activated Clotting Time Sodium 139 Potassium 4.9 Chloride 104 Carbon Dioxide 28.0 Anion Gap 7 BUN 14 Creatinine 1.28 Estim Creat Clear Calc 57.19 Est GFR (MDRD) Af Amer 71 Est GFR (MDRD) Non-Af 59 L BUN/Creatinine Ratio 10.9 Glucose 127 H Calcium 8.8 Total Creatine Kinase Troponin I < 0.015 < 0.015 Triglycerides Cholesterol LDL Cholesterol VLDL Cholesterol HDL Cholesterol 07/04/17 07/05/17 07/05/17 16:10 04:16 04:16 WBC 5.5 RBC 4.54 L Hgb 14.5 Hct 42.6 MCV 93.8 MCH 31.9 MCHC 34.0 RDW 12.7 RDW Differential 42.4 Plt Count 178 MPV 9.6 Immature Gran % (Auto) 0.000 Neut % (Auto) 59.4 Lymph % (Auto) 26.3 Wilcox % (Auto) 9.6 Eos % (Auto) 4.0 Baso % (Auto) 0.7 Absolute Neuts (auto) 3.3 Absolute Lymphs (auto) 1.45 Total Counted Not Reportable PT 14.0 INR 1.1 APTT 27.4 Activated Clotting Time Sodium Potassium Chloride Carbon Dioxide Anion Gap BUN Creatinine Estim Creat Clear Calc Est GFR (MDRD) Af Amer Est GFR (MDRD) Non-Af BUN/Creatinine Ratio Glucose Calcium Total Creatine Kinase Troponin I < 0.015 Triglycerides Cholesterol LDL Cholesterol VLDL Cholesterol HDL Cholesterol 07/05/17 07/05/17 07/05/17 04:16 04:16 08:42 WBC RBC Hgb Hct MCV MCH MCHC RDW RDW Differential Plt Count MPV Immature Gran % (Auto) Neut % (Auto) Lymph % (Auto) Wilcox % (Auto) Eos % (Auto) Baso % (Auto) Absolute Neuts (auto) Absolute Lymphs (auto) Total Counted PT INR APTT Activated Clotting Time 186 H Sodium 144 Potassium 4.1 Chloride 107 Carbon Dioxide 29.0 Anion Gap 8 BUN 15 Creatinine 1.09 Estim Creat Clear Calc 65.11 Est GFR (MDRD) Af Amer 86 Est GFR (MDRD) Non-Af 71 BUN/Creatinine Ratio 13.8 Glucose 91 Calcium 8.1 L Total Creatine Kinase Troponin I Triglycerides 161 Cholesterol 241 H LDL Cholesterol 167 H VLDL Cholesterol 32 HDL Cholesterol 42 07/05/17 07/05/17 07/05/17 09:31 09:31 10:46 WBC 5.5 RBC 4.58 L Hgb 14.5 Hct 42.6 MCV 93.0 MCH 31.7 MCHC 34.0 RDW 12.5 RDW Differential 41.9 Plt Count 188 MPV 9.8 Immature Gran % (Auto) Neut % (Auto) Lymph % (Auto) Wilcox % (Auto) Eos % (Auto) Baso % (Auto) Absolute Neuts (auto) Absolute Lymphs (auto) Total Counted PT INR APTT Activated Clotting Time 120 Sodium Potassium Chloride Carbon Dioxide Anion Gap BUN Creatinine Estim Creat Clear Calc Est GFR (MDRD) Af Amer Est GFR (MDRD) Non-Af BUN/Creatinine Ratio Glucose Calcium Total Creatine Kinase 93 Troponin I Triglycerides Cholesterol LDL Cholesterol VLDL Cholesterol HDL Cholesterol 07/05/17 07/05/17 07/05/17 16:00 16:00 21:50 WBC 6.1 7.9 RBC 4.55 L 4.73 Hgb 14.2 14.9 Hct 42.2 44.2 MCV 92.7 93.4 MCH 31.2 31.5 MCHC 33.6 33.7 RDW 12.9 12.9 RDW Differential 43.3 44.4 H Plt Count 178 187 MPV 9.5 9.5 Immature Gran % (Auto) Neut % (Auto) Lymph % (Auto) Wilcox % (Auto) Eos % (Auto) Baso % (Auto) Absolute Neuts (auto) Absolute Lymphs (auto) Total Counted PT INR APTT Activated Clotting Time Sodium Potassium Chloride Carbon Dioxide Anion Gap BUN Creatinine Estim Creat Clear Calc Est GFR (MDRD) Af Amer Est GFR (MDRD) Non-Af BUN/Creatinine Ratio Glucose Calcium Total Creatine Kinase 75 Troponin I Triglycerides Cholesterol LDL Cholesterol VLDL Cholesterol HDL Cholesterol 07/05/17 07/06/17 07/06/17 21:50 03:50 03:50 WBC 7.7 RBC 4.40 L Hgb 13.8 Hct 40.9 MCV 93.0 MCH 31.4 MCHC 33.7 RDW 12.9 RDW Differential 43.6 Plt Count 192 MPV 10.1 Immature Gran % (Auto) Neut % (Auto) Lymph % (Auto) Wilcox % (Auto) Eos % (Auto) Baso % (Auto) Absolute Neuts (auto) Absolute Lymphs (auto) Total Counted PT INR APTT Activated Clotting Time Sodium 140 Potassium 4.3 Chloride 106 Carbon Dioxide 26.0 Anion Gap 8 BUN 14 Creatinine 1.11 Estim Creat Clear Calc 59.91 Est GFR (MDRD) Af Amer 84 Est GFR (MDRD) Non-Af 69 BUN/Creatinine Ratio 12.6 Glucose 97 Calcium 7.9 L Total Creatine Kinase 79 Troponin I Triglycerides 117 Cholesterol 193 LDL Cholesterol 130 VLDL Cholesterol [address] Butch Beach-cardiology/[facility] Operations: None Procedures: Cardiac catheterization - with PTCA and FRACISCO RCA Summary of Care Provided: The patient is a 71 year old M with a PMH of coronary artery disease, PTCA/ stent of left main coronary artery in 1999, PTCA/stent of LAD in 2005, hypertension, anxiety/depression, morbid obesity, BPH, colon polyps, ADAN, CRF stage III and former smoking hx (now chews tobacco) who presented to the ED at [facility] on 07/04/2017 complaining of substernal chest discomfort with exertion. He had been having chest discomfort for the past several weeks with exertion and it was associated with shortness of breath and diaphoresis. His exercise tolerance had been decreasing and he gets CP with walking and with stairs. Vital signs at presentation to the emergency room were temperature 96.1, heart rate 60, blood pressure 192/82, respiratory rate 13 and he is 98% saturated on room air. KG shows sinus bradycardia with no ischemic changes however he was not having chest pain at the time of the EKG. Chest x-ray showed no pleural effusions, pulmonary vascular congestion or infiltrates. CBC was unremarkable. BMP showed a creatinine of 1.28 with BUN of 14. GFR was 59 which is consistent with chronic renal failure stage III. A random blood sugar was elevated at 127. 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 He was admitted to a monitored bed on PCU. Serial CE's were negative and telemetry showed no significant dysrhythmia or ectopy. Echocardiogram showed normal left ventricular systolic function with an estimated ejection fraction of 60%. The PA pressure was mildly increased at 39 and he had mild to moderate aortic valve insufficiency. He was seen by Dr. Beach and the decision was made to proceed with cardiac catheterization. Cardiac catheterization revealed 80-90% stenosis of the mid-distal RCA. He had a 4.0X16 Promus Synergy stent inserted by Dr. Gastelum and post procedure was transferred to the Cardiac care unit. He had no significant ectopy overnight and the next day he denied chest pain, shortness of breath, palpitations. He was discharged home on aspirin, Plavix, Lopressor, high intensity statin and valsartan. He will resume his previous medications with the exception of Propanolol which has been discontinued. He was advised to quit using chewing tobacco, lose weight and start walking 5-6 times a week for 30 minutes. He will follow up with Dr. Beach in the office in 2 weeks and also with his PCP. He is also going to follow up in the pulmonary office in 2 weeks to arrange a repeat sleep study and PFT's. He has not had a sleep study in > 5 years and admits to gaining 60-70 pounds in the past 5 years. General: alert, oriented X3, NAD, appropriate with normal affect Neck: supple, trachea midline, carotids have brisk upstroke and normal pulse volume, no JVD, no carotid bruits Lungs: CTA, symmetric chest expansion, not tachypneic, able to lie flat with no respiratory distress Heart: Regular rate and rhythm, normal S1, normal S2, diastolic murmur at the second right intercostal space which radiates to the lower left sternal border. , no gallop, no rub, PMI is on the midclavicular line Abdomen: soft, NT, ND, BS's present. The R groin is dry with no blood on the dressing, no swelling and no hematoma. Extremities: no edema, no calf tenderness, peripheral pulses are normal The Right groin shows no hematoma and there is no bleeding. He denies pain. This note was generated with [email or web address] dictation software. It may contain incorrect words, spelling, and punctuation that were not noted in checking the note before signing. Discharge Activity: - - Start a walking program and walk at least 5 days a week. Work up to 30 minutes a day. No hills to start. May shower in (days): 1 May resume sexual activity in: 10-14 days Weight Bearing Status: Full weight bearing Call your doctor if your incision/area has: Continuous Slow Oozing, Sudden Increased Bleeding, Increased Pain/ Swelling, Increased Redness, Foul Smelling Discharge, Swelling at the incision site Call your doctor if you observe: Fever of 101 or Higher, Shortness of breath, Dizziness, Fainting spells, Swelling in the ankles, Chest pain, Calf discomfort Remove Dressing in (days):: 1 Cleanse incision/area with: Soap & Water Home Medications: Medications to take at Discharge Lamotrigine [Lamictal] 25 mg PO DAILY 07/04/17 Pantoprazole Sodium [Protonix] 80 mg PO BID 07/04/17 Paroxetine HCl [Paxil] 20 mg PO DAILY 07/04/17 Aspirin E.C. [Ecotrin] 81 mg PO DAILY@0800 tablet 07/06/17 Atorvastatin Calcium [Lipitor] 40 mg PO QHS #30 tab 07/06/17 Clopidogrel Bisulfate [Plavix] 75 mg PO DAILY #30 tab 07/06/17 Metoprolol Tartrate [Lopressor (beta adrian)] 12.5 mg PO BID #30 tab 07/06/17 Nitroglycerin [Nitrostat] 0.4 mg SUBLINGUAL Q5M PRN #1 bottle 07/06/17 Valsartan [Diovan] 80 mg PO DAILY #30 tab 07/06/17 Following Prescrptions Were Given to Patient: Atorvastatin Calcium [Lipitor] 40 mg PO QHS #30 tab Clopidogrel Bisulfate [Plavix] 75 mg PO DAILY #30 tab Nitroglycerin [Nitrostat] 0.4 mg SUBLINGUAL Q5M PRN #1 bottle PRN Reason: Chest Pain Valsartan [Diovan] 80 mg PO DAILY #30 tab Metoprolol Tartrate [Lopressor (beta adrian)] 12.5 mg PO BID #30 tab Primary Care Physician: Darrell Aggarwal [NON-STAFF] - Please follow up with your Primary Care Physician in: 2 weeks Please Follow Up With: Butch Beach MD When: 2 weeks Disposition: Home Minutes spent on discharge:: 35 Patient Condition:: Good Medical Necessity - Tobacco Use Smoking Status: Former smoker - quit in 1999 Tobacco Use: Non-smoker Meaningful Use Info Meaningful Use Diagnoses (Choose all that apply): None applicable Code Visit Inpatient E&M: 35773 Disch Hosp
[2017-07-06] MEDS: Aspirin E.C. 81 MG Tablet PO (09:07)
[2017-07-06] MEDS: lamoTRIgine 25 MG Tablet PO (09:08)
[2017-07-06] MEDS: Metoprolol Tartrate 25 MG Tablet 12.5 MG PO (09:08)
--- NOTE | 2017-07-06 09:08 | SLEEP ---
Seen patient on inpatient unit. We discussed sleep apnea and the importance of treating sleep apnea. Education on sleep studies were given and patient verbalized understanding. Patient was previously diagnosed and set up on PAP therapy 5+ years ago. He is willing to get a new sleep study done, came in at end and stated she plans to refer pt for sleep study.
[2017-07-06] MEDS: Clopidogrel Bisulfate 75 MG Tablet PO (09:09)
== END 2017-07-06 09:40 | disposition home or self-care (01) | DRG 247 ==
LOC: ED 10:21 → PCU 11:03 → ICU 07-05 08:43
PROVIDERS: Internal Medicine Cardiovascular Disease; Admitting Provider Internal Medicine; Emergency Provider Emergency Medicine; Visit Provider Internal Medicine
DX: I25.110 Atherosclerotic heart disease of native coronary artery with unstable angina pectoris (principal); Z68.41 Body mass index [BMI] 40.0-44.9, adult; I35.2 Nonrheumatic aortic (valve) stenosis with insufficiency; I12.9 Hypertensive chronic kidney disease with stage 1 through stage 4 chronic kidney disease, or unspecified chronic kidney disease; N18.3 Chronic kidney disease, stage 3 (moderate); F17.211 Nicotine dependence, cigarettes, in remission; F17.220 Nicotine dependence, chewing tobacco, uncomplicated; F32.9 Major depressive disorder, single episode, unspecified; F41.9 Anxiety disorder, unspecified; E78.5 Hyperlipidemia, unspecified; E66.01 Morbid (severe) obesity due to excess calories; N40.0 Benign prostatic hyperplasia without lower urinary tract symptoms; G47.33 Obstructive sleep apnea (adult) (pediatric); K63.5 Polyp of colon; Z98.61 Coronary angioplasty status; Z79.82 Long term (current) use of aspirin; Z79.01 Long term (current) use of anticoagulants; Z79.899 Other long term (current) drug therapy; Z91.19 Patient's noncompliance with other medical treatment and regimen
CPT/HCPCS: 36415; 71045; 80048; 80061; 82550; 84484; 85025; 85027; 85347; 85610; 85730; 92928; 93005; 93306; 93454; 97802; 99152; 99153; 99284; J7030; Q9957; A4216; C1725; C1769; C1874; C1887; C1894; C8929; C9600; Q9967

== ENCOUNTER → 2018-06-02 10:43 | Outpatient (CLI) | payer MEDICARE, OTHER, SELFPAY ==
[2018-06-02 09:46] VITALS: BMI 43.7
[2018-06-02 11:43] LABS: AST(SGOT) 20 U/L (15-37); Alanine Aminotransfer ALT/SGPT 32 U/L (16-61); Albumin, Serum 3.8 g/dL (3.2-5.0); Alkaline Phosphatase 66 U/L (45-117); Bilirubin, Direct 0.13 mg/dL (0.00-0.30); Cholesterol 229 mg/dL (200); Globulin 3.2 g/dL (2.2-4.2); High Density Lipoprotein 50 mg/dL; Triglycerides 158 mg/dL; Very Low Density Lipoprotein 32 mg/dL (5-40)
== END ==
PROVIDERS: Referring Provider Internal Medicine Cardiovascular Disease; Visit Provider Internal Medicine Cardiovascular Disease
DX: E78.5 Hyperlipidemia, unspecified (principal)
CPT/HCPCS: 36415; 80061; 80076

== ENCOUNTER 2019-02-08 08:28 | Observation (INO) | payer MEDICARE, OTHER, SELFPAY ==
[2018-06-02 09:46] VITALS: BMI 43.7
[2019-02-08] VITALS (15 sets, daily range): BP systolic 121–163; BP diastolic 49–134; PULSE 44–65; RESP 16–21; TEMP 36.7–36.9; O2SAT 94–99; BMI 40.8; BMI 40.0
--- NOTE | 2019-02-08 08:31 | RAD_ITS ---
STUDY: X-RAY CHEST REASON FOR EXAM: Male, 73 years old. C/O SOB AND CHEST TIGHTNESS X COUPLE DAYS TECHNIQUE: Single AP portable view of the chest. COMPARISON: July 04, 2017 FINDINGS: The lungs are clear and expanded. There is no demonstrated pleural abnormality. Normal size heart. Normal mediastinum and sarah. Stable visualized osseous structures. RAD/Chest 1 View (Portable) IMPRESSION: No acute process Electronically Signed: Aaron Preston MD at 8:53 EST , Service support ,
--- NOTE | 2019-02-08 08:31 | EKG12_ITS ---
Test Reason : CP Blood Pressure : / mmHG Vent. Rate : 059 BPM Atrial Rate : 059 BPM P-R Int : 192 ms QRS Dur : 100 ms QT Int : 412 ms P-R-T Axes : 051 -27 057 degrees QTc Int : 407 ms Sinus bradycardia Otherwise normal ECG Confirmed by FRANCESCO RDZ, OLGA ([id number]), editor publications TREVOR SHEIKH ([id number]) on 02/09/2019 10:34:59 AM Referred By: Shaun Monzon Confirmed By:RIO MAYA MD
--- NOTE | 2019-02-08 08:40 | ED.DCSUM_ITS ---
- ER Visit Summary Date of Service: 02/08/19 Chief Complaint: Exertional chest pain shortness of breath History of Present Illness: The patient is a 73 M history of CAD and 3 prior cardiac stents the most recent in June 2017. Patient states the last week he has had exertional shortness of breath and chest pain increasing in frequency and intensity. Currently he is pain-free. He states if he walks or goes up and down steps he gets more short of breath and gets all aching chest pain. Denies any history of DVT or PE. This is not pleuritic. No new leg swelling or calf pain. No recent immobilization. Physical Examination: Older male currently no acute distress vital signs are stable afebrile. Pulse ox 94% on room air no signs hypoxia. His initial blood pressure is 163/134 but obviously be repeated and watch closely. H EENT exam unremarkable. Neck nontender. No JVD. Lungs clear to auscultation bilaterally. Heart regular rhythm no murmur. Chest wall nontender. Abdomen obese but soft. Nontender normal bowel sounds no peritoneal signs. Patient moving all 4 extremities. Neurovascular intact. Calves are nontender without edema or cords. Neurologically is awake and alert with no focal motor deficits. Test Results: EKG shows a sinus bradycardia rate of 59 with no acute signs of MO or ischemia. Portable chest x-ray one view read by myself and read by the radiologist showed no acute abnormality. CBC normal. Hemoglobin 16. Chemistri es unremarkable creatinine 1.38. Troponin normal. Emergency Department Course and Treatment: Patient will undergo cardiac work-up. Received p.o. aspirin. He is on Plavix at home. With his history of coronary disease, 3 cardiac stents and exertional chest pain and dyspnea I do feel he will need admitted for further evaluation. He and I have already discussed that. Repeat exam at 9:04 AM patient is doing well. He is pain-free. We went over his test results. He is comfortable with the admission. I have already spoken to cardiology certified indoor environmentalist and have the hospitalist on page. Treatment Plan: Hospitalist on page for admission Disposition: Admission for further cardiac evaluation. Impression: Acute exertional chest pain History of CAD with 3 cardiac stents This note was generated with [employer] dictation software. It may contain incorrect words, spelling, and punctuation that were not noted in review of the chart prior to signing ED Disposition - Plan for ED Patient: Referrals: Care Physician,No Primary [Primary Care Provider] -
[2019-02-08] MEDS: Aspirin 81 MG TAB.CHEW 324 MG PO (08:44)
[2019-02-08 08:45] LABS: Absolute Lymphocyte Count 1.77 X10^3/uL (0.83-4.51); Absolute Neutrophil Count 4.7 X10^3/uL (2.0-7.7); Basophil# 0.07 X10^3/uL; Basophil% 0.9 % (0-1); Hematocrit 49.5 % (40-54); Hemoglobin 16.3 g/dL (13.0-16.5); Lymphocyte # 1.77 X10^3/ul (4.0); Lymphocyte % 23.5 % (19-41); Mean Corp Hgb Conc 32.9 g/dL (32-36); Mean Corpuscular Hgb 30.9 pg (27.0-32.0); Mean Corpuscular Volume 93.8 fL (80-94); Mean Platelet Vol. 9.9 fl (6.2-12.0); Monocyte# 0.65 X10^3/uL; Monocyte% 8.6 % (0-10); NRBC Flagged by Analyzer 0 % (0-5); Neutrophil # 4.73 X10^3/uL (2.7-7.7); Neutrophil % 62.9 % (47-70); Platelet Count 222 K/mm3 (150-450); RBC Distribution Width CV 12.2 % (11.6-14.6); RBC Distribution Width SD 41.9 fl (35.1-43.9); Red Blood Count 5.28 M/mm3 (4.6-6.2); White Blood Count 7.5 K/mm3 (4.4-11.0)
[2019-02-08 08:58] LABS: Anion Gap 3 (5-15); BUN 18 mg/dL (7-18); Calcium,Total 9.2 mg/dL (8.5-10.1); Chloride 110 mmol/L (98-107); Creatinine, Serum 1.38 mg/dL (0.70-1.30); EST Glomerular Filtration Rate 54 mL/min (>60); Est Glom Filt Rate - Afr Amer 65 mL/min (>60); Estimated Creatinine Clearance 51.53 ml/min; Glucose 104 mg/dL (74-106); Potassium 4.3 mmol/L (3.5-5.1); Sodium Level 144 mmol/L (136-145)
--- NOTE | 2019-02-08 10:06 | EKG12_ITS ---
Test Reason : CP ADMIT Blood Pressure : / mmHG Vent. Rate : 053 BPM Atrial Rate : 053 BPM P-R Int : 192 ms QRS Dur : 102 ms QT Int : 470 ms P-R-T Axes : 048 -16 039 degrees QTc Int : 441 ms Sinus bradycardia with occasional Premature ventricular complexes Otherwise normal ECG No previous ECGs available Confirmed by FRANCESCO RDZ, OLGA ([id number]), pictures editor TREVOR SHEIKH ([id number]) on 02/09/2019 10:41:17 AM Referred By: Shaun Monzon Confirmed By:RIO MAYA MD
--- NOTE | 2019-02-08 10:24 | CASEMGMT ---
As per admitting RN, pt has LW/POA forms but declined to bring in the documents. Pt indicated that Melissa Walters is POA. AYALA Brand
--- NOTE | 2019-02-08 10:36 | CON.PCM_ITS ---
Problem List (1) Essential (primary) hypertension Status: Chronic (2) Atherosclerotic heart disease of [place] coronary artery with other forms of angina pectoris Status: Chronic Comment: PCI-Stent- left main coronary artery in 1999; GRS-Ltxaa-PXO in 2005; PCI-Distal RCA w/ 4.0 X16 Promus Synergy 07/05/17 Reason for Consult Date of Consultation: 02/08/19 History of Present Illness: The patient is a 73 year old M this is a 73-year-old gentleman that presented to the emergency room today with chest discomfort and shortness of breath that have been increasing in intensity over the last 10 days. He states that the symptoms are similar to what he had previous to his stenting in 2005 and in 2017. Patient does have a history of coronary artery disease with stenting to his left main in 1999, LAD in 2005 and RCA in 2017. He also has a history of hypertension, anxiety/depression, morbid obesity, rheumatic heart disease, BPH, colon polyps and former smoking history. Patient's heart catheterization in June 2017 when he presented to the emergency room with chest discomfort demonstrated severe to distal RCA disease. His ejection fraction at that time was noted to be 55%. His left main was angiographically normal, LAD showed less than 30% stenosis, left circumflex showed less than 30% stenosis and mid RCA showed previously placed stent patent. He underwent stenting of his distal RCA. Patient states that he has noted increased shortness of breath and chest discomfort over the last 10 days. He presented to the emergency room today because he did not want to come to the emergency room yesterday on a holiday. He did not take any nitroglycerin at home. He notes that over the last 10 days he has been increased shortness of breath with exertion specifically with walkin g up steps he also had chest discomfort with this. He has not had any palpitations. He does not have any lower extremity edema. He does not have any lightheadedness or dizziness or syncopal episodes. Past Medical History Allergies/Adverse Reactions: Allergies Sulfa (Sulfonamide Antibiotics) Allergy (Verified 06/02/18 09:46) Unknown Home Medications: Ambulatory Orders Medication Instructions Recorded Aspirin [Aspirin, Baby] 81 mg PO DAILY@0800 02/08/19 Clopidogrel Bisulfate [Plavix] 75 mg PO DAILY 02/08/19 Lamotrigine [Lamictal] 25 mg PO DAILY 02/08/19 Metoprolol Tartrate 50 mg PO DAILY 02/08/19 Pantoprazole Sodium [Protonix] 80 mg PO DAILY 02/08/19 Valsartan [Diovan] 80 mg PO DAILY 02/08/19 Past Medical History (Chronic Problems): Chronic Problems (Last Reviewed 06/02/18 @ 10:29 by Butch Beach MD) Rheumatic heart disease (Chronic) Secondary pulmonary arterial hypertension (Chronic) Essential (primary) hypertension (Chronic) Nonrheumatic aortic (valve) insufficiency (Chronic) Atherosclerotic heart disease of [place] coronary artery with other forms of angina pectoris (Chronic) PCI-Stent- left main coronary artery in 1999; NLS-Nipwo-DPP in 2005; PCI- Distal RCA w/ 4.0 X16 Promus Synergy 07/05/17 Chronic renal failure, stage 3 (moderate) (Chronic) Surgical History: cholecystectomy, - - colonoscopies with polypectomies, laser TURP? Psychiatric History: Anxiety, Depression - *Family History Maternal Family History: Family History (Last Reviewed 06/02/18 @ 10:29 by Butch Beach MD) Other Unknown Family History d/t Adoption History Items: - - he is adopted....does not know much about parents......mother has COPD per his dtr Smoking Status: Former smoker Review of Systems - Review of Systems General: Denies: Fever, Fatigue, Chills, Night Sweats HEENT: Denies: Vision Change, Blurred Vision, Head Aches Cardiovascular: Reports: Chest Discomfort, Chest Pressure, Chest Tightness, Shortness of Breath, Shortness of Breath with Exertion, Orthopnea. Denies: Peripheral Edema, Palpitations, Lightheadedness, Dizziness, Near Syncope Respiratory: Denies: Cough Gastrointestinal: Denies: Indigestion, Heart Burn Genitourinary: Denies: Dysuria, Hematuria Muscoloskeletal: Reports: Joint Pain. Denies: Myalgias Skin: Denies: Rash Neurological: Denies: Dizziness, Vertigo Objective: Vital Signs Temp Pulse Resp BP Pulse Ox 98.4 F 46 L 16 128/49 H 97 02/08/19 10:03 02/08/19 10:19 02/08/19 10:03 02/08/19 10:03 02/08/19 10:03 Oxygen Flow Rate (L/min) 2 Oxygen Delivery Method Nasal Cannula Weight: 285 lb 15.033 oz Body Mass Index (BMI) 40.0 General: Healthy Appearing, Awake, Alert, Oriented x 3, Cooperative, No Acute Distress HEENT: Atraumatic, Normocephalic, PERRL, EOMI Oral: Moist Mucosa Neck: Supple, No JVD Lungs: Clear to auscultation Cardiovascular: Regular Rhythm, Normal S1, Normal S2, No Murmurs, No Rubs, No Gallops Vascular: No Carotid Bruits Abdomen: Bowel Sounds Present, Soft, Non Tender, Obese Extremities: No Cyanosis, No Clubbing, No edema Neurological: No Focal Motor or Sensory Deficit, CN II-XII Intact Psych/Mental Status: Appropriate, Normal Affect 02/08/19 08:36: WBC 7.5, RBC 5.28, Hgb 16.3, Hct 49.5, MCV 93.8, MCH 30.9, MCHC 32.9, Plt Count 222, MPV 9.9, Immature Gran % (Auto) 0.100, Neut % (Auto) 62.9, Lymph % (Auto) 23.5, Mower % (Auto) 8.6, Eos % (Auto) 4.0, Baso % (Auto) 0.9, Absolute Neuts (auto) 4.7, Nucleated RBC % 0 02/08/19 08:36: Sodium 144, Potassium 4.3, Chloride 110 H, Carbon Dioxide 31.0, Anion Gap 3 L, BUN 18, Creatinine 1.38 H, Est GFR (MDRD) Af Amer 65, Est GFR (MDRD) Non-Af 54 L, BUN/Creatinine Ratio 13.0, Glucose 104, Calcium 9.2, Troponin I < 0.015 Rhythm: EKG: ECHO: Stress Test: Cardiac Cath: PCI: CT Surgery: Holter monitor: EPS: PPM: CXR: Chest CT Scan:
[2019-02-08] MEDS: 0.9% Normal Saline 1,000 ML 125 ML IV (11:54)
--- NOTE | 2019-02-08 12:50 | HP.PCM_ITS ---
Problem List (1) Stable angina Status: Acute History of Present Illness Date of Admission: 02/08/19 Chief Complaint: chest pain The patient is a 73 year old M presents with a several week history of chest pain. Chest pain is exertional, right is worse with exertion and relieved with rest. Patient has other associated constitutional symptoms, including shortness of breath, diaphoresis and. Patient states that this is similar to when he received stents back in 2018. In the emergency room, patient's work-up was unremarkable. Patient was seen by cardiology once arrived to the floor the plan is for a left heart catheterization today. Currently he is chest pain-free. Patient describes his symptoms as exertional but steadily have gotten worse over the past few weeks. [] Past Medical History Past Medical History (Chronic Problems): Chronic Problems (Last Reviewed 02/08/19 @ 11:26 by Sherley Oswald) Rheumatic heart disease (Chronic) Secondary pulmonary arterial hypertension (Chronic) Essential (primary) hypertension (Chronic) Nonrheumatic aortic (valve) insufficiency (Chronic) Atherosclerotic heart disease of [place] coronary artery with other forms of angina pectoris (Chronic) PCI-Stent- left main coronary artery in 1999; DHW-Skqcy-PES in 2005; PCI- Distal RCA w/ 4.0 X16 Promus Synergy 07/05/17 Chronic renal failure, stage 3 (moderate) (Chronic) Medical History: Medical History (Last Reviewed 02/08/19 @ 12:52 by Shaun Monzon DO) Rheumatic heart disease (Chronic) I09.9 Secondary pulmonary arterial hypertension (Chronic) I27.21 Essential (primary) hypertension (Chronic) I10 Nonrheumatic aortic (valve) insufficiency (Chronic) I35.1 Atherosclerotic heart disease of [place] coronary artery with other forms of angina pectoris (Chronic) I25.118 PCI-Stent- left main coronary artery in 1999; SAX-[id number]-LPK in 2005; PCI- Distal RCA w/ 4.0 X16 Promus Synergy 07/05/17 Chronic renal failure, stage 3 (moderate) (Chronic) N18.3 Anxiety and depression F41.9, F32.9 BPH (benign prostatic hyperplasia) N40.0 Obesity E66.9 Obstructive sleep apnea G47.33 Former cigarette smoker (Resolved) Z87.891 Angina of effort (Inactive) I20.8 Allergies Sulfa (Sulfonamide Antibiotics) Allergy (Verified 06/02/18 09:46) Unknown Home Medications: Ambulatory Orders Medication Instructions Recorded Aspirin [Aspirin, Baby] 81 mg PO DAILY@0800 02/08/19 Clopidogrel Bisulfate [Plavix] 75 mg PO DAILY 02/08/19 Lamotrigine [Lamictal] 25 mg PO DAILY 02/08/19 Metoprolol Tartrate 50 mg PO DAILY 02/08/19 Pantoprazole Sodium [Protonix] 80 mg PO DAILY 02/08/19 Valsartan [Diovan] 80 mg PO DAILY 02/08/19 Surgical History: Surgical History (Last Reviewed 02/08/19 @ 12:52 by Shaun Monzon DO) History of coronary artery stent placement (Resolved) Z95.5 H/O colonoscopy with polypectomy Z98.890, Z86.010 History of transurethral resection of prostate Z98.890, Z90.79 Hx of cholecystectomy Z90.49 Surgical History: cholecystectomy, - - colonoscopies with polypectomies, laser TURP? Psychiatric History: Anxiety, Depression Smoking Status: Former smoker - *Family History Maternal Family History: Family History (Last Reviewed 02/08/19 @ 12:52 by Shaun Monzon DO) Other Unknown Family History d/t Adoption History Items: - - he is adopted....does not know much about parents......mother has COPD per his dtr Review of Systems Constitutional: Denies: Anorexia, Chills, Fever Eyes: Denies: Blurred vision, Double vision HEENT: Denies: Head Aches, Sinus Congestion, Sinus Drainage Cardiovascular: Reports: Chest Pain. Denies: Edema, Palpitations Respiratory: Denies: Cough, Shortness of breath at rest, Sputum production Gastrointestinal: Denies: Abdominal Pain, Nausea, Vomiting Genitourinary: Denies: Dysuria Musculoskeletal: Denies: Joint Pain, Joint Tenderness Skin: Denies: Dryness, Jaundice Neurological: Reports: Numbness - in legs. Denies: Focal weakness, Tingling Psychiatric: Denies: Anxiety, Depression Hematologic/ Lymphatic: Denies: Easy Bruising, Easy Bleeding, Hx of blood clot Comment: All review systems otherwise negative except for as mentioned above and in the HPI. VTE Information - Inpt Only VTE Present on Admission: No VTE Mechan Device Prophylaxis: None VTE Pharm Prophylaxis ordered?: No Reason prophylaxis not ordered:: Procedure Not Indicated Patient Problems: Active and Suspected Problems (Last Reviewed 02/08/19 @ 11:26 by Sherley Oswald) Stable angina (Acute) - Physical Exam Vitals/I&O's: Vital Signs Temp Pulse Resp BP Pulse Ox 36.9 C 46 L 16 128/49 H 97 02/08/19 10:03 02/08/19 10:19 02/08/19 10:03 02/08/19 10:03 02/08/19 10:03 Oxygen Flow Rate (L/min) 2 Oxygen Delivery Method Nasal Cannula Weight: 129.7 kg Body Mass Index (BMI) 40.0 Intake and Output for Last 24 Hours 02/06/19 02/07/19 02/08/19 23:59 23:59 23:59 Intake Total 240 / 240 Balance 240 / 240 General: Alert, Cooperative, No apparent distress HEENT: Atraumatic, Normocephalic, - - No icterus Oral: Moist Mucosa, No Gingival or Mucosal Lesions/ Ulcerations Neck: No Nodes, Trachea Midline Lungs: Clear to auscultation, Normal air movement, No rhonchi, No wheeze Cardiovascular: Regular rate, Regular Rhythm, Normal S1, Normal S2 Abdomen: Bowel Sounds Present, Soft, Non Tender, Non-Distended, No Hepato- splenomegaly, Obese Extremities: No edema, No Calf Tenderness Skin: No rashes, No breakdown Musculoskeletal: No Tenderness to Palpation of Joints or Extremities, No Muscle Wasting Lymphatic: No Cervical, Supraclavicular, or Inguinal Adenopathy, Cervical Adenopathy Neurological: Muscle tone normal, Coordination normal Psych/Mental Status: Normal Affect, Appropriate Laboratory Results 02/08/19 08:36: WBC 7.5, RBC 5.28, Hgb 16.3, Hct 49.5, MCV 93.8, MCH 30.9, MCHC 32.9, RDW Std Deviation 41.9, RDW Coeff of Hardik 12.2, Plt Count 222, MPV 9.9, Immature Gran % (Auto) 0.100, Neut % (Auto) 62.9, Lymph % (Auto) 23.5, [place] % (Auto) 8.6, Eos % (Auto) 4.0, Baso % (Auto) 0.9, Absolute Neuts (auto) 4.7, Absolute Lymphs (auto) 1.77, Nucleated RBC % 0 02/08/19 08:36: Sodium 144, Potassium 4.3, Chloride 110 H, Carbon Dioxide 31.0, Anion Gap 3 L, BUN 18, Creatinine 1.38 H, Estim Creat Clear Calc 51.53, Est GFR (MDRD) Af Amer 65, Est GFR (MDRD) Non-Af 54 L, BUN/Creatinine Ratio 13.0, Glucose 104, Calcium 9.2, Troponin I < 0.015 02/08/19 11:16: Troponin I < 0.015 Chest x-ray personally reviewed and showed no acute infiltrate. Current Medications Acetaminophen (Tylenol) 650 mg PO Q6H PRN PRN PRN Reason: Pain Score 1-3/Temp > 100.7 F Aspirin (Aspirin, Baby) 81 mg PO DAILY@0800 [facility] Clopidogrel Bisulfate (Plavix) 75 mg PO DAILY [facility] Last Admin: 02/08/19 10:26 Dose: Not Given Documented by: Glucagon () 1 mg IM .X1 PRN PRN Reason: Hypoglycemia Dextrose (Dextrose 10%-Water) 250 mls @ 999 mls/hr IV .Q16M PRN; Protocol PRN Reason: HYPOGLYCEMIA Sodium Chloride () 1,000 mls @ 15 mls/hr IV .Q48H ALE Sodium Chloride () 1,000 mls @ 125 mls/hr IV .Q8H [facility] Stop: 02/08/19 19:44 Last Admin: 02/08/19 11:54 Dose: 125 mls/hr Documented by: Lamotrigine (Lamictal Chew) 25 mg PO DAILY [facility] Last Admin: 02/08/19 10:25 Dose: Not Given Documented by: Losartan Potassium (Cozaar) 25 mg PO DAILY [facility] Last Admin: 02/08/19 10:25 Dose: Not Given Documented by: Metoprolol Tartrate (Lopressor (Beta George)) 50 mg PO DAILY [facility] Last Admin: 02/08/19 11:16 Dose: Not Given Documented by: Nitroglycerin (Nitrostat) 0.4 mg SUBLINGUAL Q5M PRN PRN Reason: CARDIAC/CHEST PAIN Ondansetron HCl (Zofran) 4 mg IV Q8H PRN PRN PRN Reason: NAUSEA/VOMITING Oxycodone HCl (Oxyir) 5 mg PO Q4H PRN PRN PRN Reason: Pain Score 4-5/10 Oxycodone HCl (Oxyir) 10 mg PO Q4H PRN PRN PRN Reason: Pain Score 6-10/10 Pantoprazole Sodium (Protonix) 40 mg PO BID [facility] Last Admin: 02/08/19 10:26 Dose: Not Given Documented by: Sodium Chloride () 10 - 40 ml IV UD PRN PRN Reason: SALINE FLUSH Assessment/Plan All Active Problems Stable angina (Acute) History of coronary artery stent placement (Resolved) Former cigarette smoker (Resolved) 1. Stable angina * Work-up thus far has been unremarkable * Patient describes a very similar parents to when he had a stent placed in 2018 * Evaluated by cardiology who is going to take the patient for a left heart catheterization today * Continue with aspirin, clopidogrel, * Cycle troponins * Continue with metoprolol, as needed nitroglycerin * Check fasting lipid panel in a.m. 2. VTE prophylaxis: Low risk as patient is observation status at this time and therefore not indicated. Code Visit OBSV E&M: 74410 Initial observation care L3
--- NOTE | 2019-02-08 15:31 | DCINST_ITS ---
- Discharge Diagnoses Current Active Problems: Current Active and Chronic Problems (Last Reviewed 02/08/19 @ 12:52 by Shaun Monzon DO) Stable angina (Acute) You will use the following diet at home:: Cardiac Your food should be the consistency of: Regular Discharge Activity: Return to Normal Activity Call your doctor if you observe: Shortness of breath, Chest pain Allergies/Adverse Reactions: Allergies Sulfa (Sulfonamide Antibiotics) Allergy (Verified 06/02/18 09:46) Unknown Medications to take at Discharge Aspirin [Aspirin, Baby] 81 mg PO DAILY@0800 02/08/19 Atorvastatin Calcium [Lipitor] 40 mg PO QHS #30 tab 02/08/19 Clopidogrel Bisulfate [Plavix] 75 mg PO DAILY 02/08/19 Lamotrigine [Lamictal] 25 mg PO DAILY 02/08/19 Metoprolol Tartrate 50 mg PO DAILY 02/08/19 Pantoprazole Sodium [Protonix] 80 mg PO DAILY 02/08/19 Ranolazine [Ranexa] 500 mg PO BID #60 tab 02/08/19 Valsartan [Diovan] 80 mg PO DAILY 02/08/19 The following prescriptions were given: Atorvastatin Calcium [Lipitor] 40 mg PO QHS #30 tab Transmission Status: Pending to [id number] Ranolazine [Ranexa] 500 mg PO BID #60 tab Transmission Status: Pending to [id number] Primary Care Physician: Care Physician,No Primary [Primary Care Provider] - Within 2 Weeks Test Results: Test results from this visit will be discussed in further detail at your follow- up appointment, if applicable. Please Follow Up With: Butch Beach MD When: 4-6 weeks Proposed Discharge Date: 02/08/19
--- NOTE | 2019-02-08 15:34 | PCM.DC.SUM ---
Discharge Date and Diagnosis - Problem List Patient Problems: Active and Suspected Problems (Last Reviewed 02/08/19 @ 12:52 by Shaun Monzon DO) Stable angina (Acute) Date of Admission: 02/08/19 Date of Discharge: 02/08/19 - Primary Discharge Diagnosis Active and Suspected Problems (Last Reviewed 02/08/19 @ 12:52 by Shaun Monzon DO) Stable angina (Acute) - Secondary Discharge Diagnosis Chronic Problems (Last Reviewed 02/08/19 @ 12:52 by Shaun Monzon DO) Rheumatic heart disease (Chronic) Secondary pulmonary arterial hypertension (Chronic) Essential (primary) hypertension (Chronic) Nonrheumatic aortic (valve) insufficiency (Chronic) Atherosclerotic heart disease of [place] coronary artery with other forms of angina pectoris (Chronic) PCI-Stent- left main coronary artery in 1999; OHJ-Czojp-WKK in 2005; PCI-Distal RCA w/ 4.0 X16 Promus Synergy 07/05/17 Chronic renal failure, stage 3 (moderate) (Chronic) Hospital Course and Treatment Imaging Results: 02/08/19 08:31 Chest 1 View (Portable) [RAD] Stat Marlee: cardiology Operations: None Procedures: Cardiac catheterization Summary of Care Provided: The patient is a 73 year old M presents with exertional chest pain over the past several weeks. Work-up in the emergency room was negative but given patient similarity to symptoms to when he has had heart cath in the past patient was brought in and evaluated by cardiology. Patient underwent a left heart catheterization today that showed minimal progression compared to his previous catheterization. Dr. Whalen recommend the patient be placed back on atorvastatin but also have the addition of Ranexa. Patient will be discharged home with close follow-up with Dr. Beach. [] Patient Problems: Active and Suspected Problems (Last Reviewed 02/08/19 @ 12:52 by Shaun Monzon DO) Stable angina (Acute) - Physical Exam Vitals/I&O's: Vital Signs Temp Pulse Resp BP Pulse Ox 36.8 C 62 16 140/60 H 96 02/08/19 13:46 02/08/19 15:33 02/08/19 15:33 02/08/19 15:33 02/08/19 15:33 Oxygen Flow Rate (L/min) 2 Oxygen Delivery Method Room Air Weight: 129.7 kg Body Mass Index (BMI) 40.0 Intake and Output for Last 24 Hours 02/06/19 02/07/19 02/08/19 23:59 23:59 23:59 Intake Total 240 / 240 Balance 240 / 240 Laboratory Results 02/08/19 08:36: WBC 7.5, RBC 5.28, Hgb 16.3, Hct 49.5, MCV 93.8, MCH 30.9, MCHC 32.9, RDW Std Deviation 41.9, RDW Coeff of Hardik 12.2, Plt Count 222, MPV 9.9, Immature Gran % (Auto) 0.100, Neut % (Auto) 62.9, Lymph % (Auto) 23.5, [place] % (Auto) 8.6, Eos % (Auto) 4.0, Baso % (Auto) 0.9, Absolute Neuts (auto) 4.7, Absolute Lymphs (auto) 1.77, Nucleated RBC % 0 02/08/19 08:36: Sodium 144, Potassium 4.3, Chloride 110 H, Carbon Dioxide 31.0, Anion Gap 3 L, BUN 18, Creatinine 1.38 H, Estim Creat Clear Calc 51.53, Est GFR (MDRD) Af Amer 65, Est GFR (MDRD) Non-Af 54 L, BUN/Creatinine Ratio 13.0, Glucose 104, Calcium 9.2, Troponin I < 0.015 02/08/19 11:16: Troponin I < 0.015 Current Medications Acetaminophen (Tylenol) 650 mg PO Q6H PRN PRN PRN Reason: Pain Score 1-3/Temp > 100.7 F Aspirin (Aspirin, Baby) 81 mg PO DAILY@0800 [facility] Atorvastatin Calcium (Lipitor) 40 mg PO QHS [facility] Clopidogrel Bisulfate (Plavix) 75 mg PO DAILY [facility] Last Admin: 02/08/19 10:26 Dose: Not Given Documented by: Glucagon () 1 mg IM .X1 PRN PRN Reason: Hypoglycemia Dextrose (Dextrose 10%-Water) 250 mls @ 999 mls/hr IV .Q16M PRN; Protocol PRN Reason: HYPOGLYCEMIA Sodium Chloride () 1,000 mls @ 15 mls/hr IV .Q48H [facility] Last Admin: 02/08/19 14:26 Dose: Not Given Documented by: Sodium Chloride () 1,000 mls @ 125 mls/hr IV .Q8H [facility] Stop: 02/08/19 19:44 Last Admin: 02/08/19 11:54 Dose: 125 mls/hr Documented by: Sodium Chloride () 1,000 mls @ 100 mls/hr IV .Q10H [facility] Last Admin: 02/08/19 14:25 Dose: Not Given Documented by: Lamotrigine (Lamictal Chew) 25 mg PO DAILY [facility] Last Admin: 02/08/19 10:25 Dose: Not Given Documented by: Losartan Potassium (Cozaar) 25 mg PO DAILY [facility] Last Admin: 02/08/19 10:25 Dose: Not Given Documented by: Metoprolol Tartrate (Lopressor (Beta George)) 50 mg PO DAILY [facility] Last Admin: 02/08/19 11:16 Dose: Not Given Documented by: Nitroglycerin (Nitrostat) 0.4 mg SUBLINGUAL Q5M PRN PRN Reason: CARDIAC/CHEST PAIN Ondansetron HCl (Zofran) 4 mg IV Q8H PRN PRN PRN Reason: NAUSEA/VOMITING Oxycodone HCl (Oxyir) 5 mg PO Q4H PRN PRN PRN Reason: Pain Score 4-5/10 Oxycodone HCl (Oxyir) 10 mg PO Q4H PRN PRN PRN Reason: Pain Score 6-10/10 Pantoprazole Sodium (Protonix) 40 mg PO BID [facility] Last Admin: 02/08/19 10:26 Dose: Not Given Documented by: Ranolazine (Ranexa) 500 mg PO BID [facility] Sodium Chloride () 10 - 40 ml IV UD PRN PRN Reason: SALINE FLUSH Discharge Diet: Low fat/ Low Cholesterol Discharge Activity: Return to Normal Activity Call your doctor if you observe: Shortness of breath, Chest pain Home Medications: Medications to take at Discharge Aspirin [Aspirin, Baby] 81 mg PO DAILY@0800 02/08/19 Atorvastatin Calcium [Lipitor] 40 mg PO QHS #30 tab 02/08/19 Clopidogrel Bisulfate [Plavix] 75 mg PO DAILY 02/08/19 Lamotrigine [Lamictal] 25 mg PO DAILY 02/08/19 Metoprolol Tartrate 50 mg PO DAILY 02/08/19 Pantoprazole Sodium [Protonix] 80 mg PO DAILY 02/08/19 Ranolazine [Ranexa] 500 mg PO BID #60 tab 02/08/19 Valsartan [Diovan] 80 mg PO DAILY 02/08/19 Following Prescrptions Were Given to Patient: Atorvastatin Calcium [Lipitor] 40 mg PO QHS #30 tab Transmission Status: [id number] Ranolazine [Ranexa] 500 mg PO BID #60 tab Transmission Status: [id number] Primary Care Physician: Care Physician,No Primary [Primary Care Provider] - Within 2 Weeks Please Follow Up With: Butch Beach MD When: 4-6 weeks Disposition: Home Minutes spent on discharge:: 32 Patient Condition:: Good Medical Necessity - Tobacco Use Smoking Status: Former smoker Meaningful Use Info Meaningful Use Diagnoses (Choose all that apply): None applicable Code Visit OBSV E&M: 01159 Observ/hosp same date L3 - Disregard admission code.
--- NOTE | 2019-02-08 17:49 | CL.D_ITS ---
Patient Name: DUNCAN SALDANA EDWI Study Date: 02/08/2019 Performing: Huy Whalen MD Ht: 71 inches 180 cm : 1945 Wt: 287 lbs 130 kg Age: 73 Gender: male BSA: 2.45 PROCEDURE(S) PERFORMED FT05-MFU/COR/LV CLINICAL PROFILE AND INDICATIONS Indications: ACS > 24 hrs Heart Failure: None Stress/Imaging Stress/Image Study Performed: No CAD Presentations: Unstable angina. CONCLUSIONS CAD as described that is not significantly changed from prior post PCI pictures. Preserved EF. No sig nificant or MR. RECOMMENDATIONS Medical therapy DESCRIPTION OF PROCEDURE The patient arrived to the procedure lab. The risks and benefits of the procedure as well as a full d escription of our services here and current unavailability of surgical backup were fully explained to the patient and/or their significant other prior to the catheterization. The Timeout was completed, verifying the correct patient and procedure. The patient's procedural site was prepped and draped in the usual fashion. Local anesthetic was given subcutaneously to right radial region with Lidocaine 2% . Using a modified Seldinger technique, arterial access was obtained via the right radial artery, a 6 Fr sheath was inserted. Left Coronary Artery selective angiography was performed in multiple views u sing a 5 Fr. JL3.5 catheter. Left Ventriculography was performed in SHELL projection using a 5 Fr. JR4. LV to AO pullback pressures were then recorded. Right Coronary Artery selective angiography was then performed in multiple views using a 5 Fr. JR 4 catheter.The arterial sheath was pulled and a TR Band was applied for hemostasis CORONARY ANGIOGRAPHY DOMINANCE: Right Dominant LEFT HEART ASSESSMENT Left Ventricular Ejection Fraction: by LV Gram 55 % Normal LV wall motion LEFT MAIN: Mild luminal irregularities LEFT ANTERIOR DESCENDING ARTERY: PROX LAD: Previously placed stent is patent. Mild to moderate diffuse disease in the proximal and kyle d LAD. DISTAL LAD: 60-70 % Stenosis DIAGONAL 2: Ostial - 80 % Stenosis SEPTAL: 80% stenosis in the ostium of the first septal welfare investigator CIRCUMFLEX ARTERY: PROX CIRC: 60-70 % Stenosis. Appears unchanged from prior angiogram RAMUS: Mild luminal irregularities RIGHT CORONARY ARTERY: Mild diffuse disease RT PDA: Ostial - 60-70 % Stenosis. Unchanged from prior angiogram ACUTE MARGINAL: 90 % Stenosis. Jailed by prior stent. Small branch VALVE FINDINGS: No Aortic Valve Stenosis No Mitral Insufficiency COMPLICATIONS No Complications PROCEDURE MEDICATIONS Fentanyl 50 mcg IV Versed 1 mg IV Oxygen: 2 L/min via nasal cannula Heparin given IA 02/08/2019 12:54:44 SUMMARY OF HEMODYNAMIC DATA Time AIR REST ECG 12:13:40 AO 117/73 (93) SA 12:56:56 LV 133/-1, 11 13:01:52 LV 134/1, 10 13:01:59 LV 135/0, 11 13:02:40 LVp 148/-2, 11 13:02:56 AOp 148/75 (106) 13:03:01 Signed By Huy Whalen MD On 02/08/2019 5:48:19 PM Huy Whalen MD
== END 2019-02-08 15:33 | disposition home or self-care (01) ==
LOC: ED 09:28 → PCU 09:29
PROVIDERS: Emergency Provider Emergency Medicine
DX: I25.118 Atherosclerotic heart disease of native coronary artery with other forms of angina pectoris (principal); E66.01 Morbid (severe) obesity due to excess calories; F41.9 Anxiety disorder, unspecified; F32.9 Major depressive disorder, single episode, unspecified; N40.0 Benign prostatic hyperplasia without lower urinary tract symptoms; N18.3 Chronic kidney disease, stage 3 (moderate); G47.33 Obstructive sleep apnea (adult) (pediatric); I12.9 Hypertensive chronic kidney disease with stage 1 through stage 4 chronic kidney disease, or unspecified chronic kidney disease; I27.21 Secondary pulmonary arterial hypertension; Z95.5 Presence of coronary angioplasty implant and graft; Z79.899 Other long term (current) drug therapy; Z79.02 Long term (current) use of antithrombotics/antiplatelets; Z79.82 Long term (current) use of aspirin; Z68.41 Body mass index [BMI] 40.0-44.9, adult; Z71.3 Dietary counseling and surveillance; Z87.891 Personal history of nicotine dependence
CPT/HCPCS: 36415; 71045; 80048; 84484; 85025; 93005; 93458; 96360; 96361; 99152; 99153; 99218; 99285; J7030; Q9967; A4216; C1769; C1894; G0378

== ENCOUNTER → 2019-12-10 09:34 | Outpatient (CLI) | payer MEDICARE, OTHER, SELFPAY ==
[2019-12-10 08:47] VITALS: BMI 41.0
[2019-12-10 11:25] LABS: AST(SGOT) 12 U/L (15-37); Alanine Aminotransfer ALT/SGPT 22 U/L (16-61); Albumin, Serum 3.5 g/dL (3.2-5.0); Alkaline Phosphatase 71 U/L (45-117); Bilirubin, Direct 0.18 mg/dL (0.00-0.30); Cholesterol 145 mg/dL (200); Globulin 3.7 g/dL (2.2-4.2); High Density Lipoprotein 53 mg/dL; Protein, Total 7.2 g/dL (6.4-8.2); Triglycerides 92 mg/dL
[2019-12-10 11:26] LABS: Very Low Density Lipoprotein 18 mg/dL (5-40)
== END ==
PROVIDERS: Referring Provider Nurse Practitioner Family; Visit Provider Nurse Practitioner Family
DX: I25.118 Atherosclerotic heart disease of native coronary artery with other forms of angina pectoris (principal); I10 Essential (primary) hypertension; Z95.5 Presence of coronary angioplasty implant and graft
CPT/HCPCS: 36415; 80061; 80076

== ENCOUNTER 2020-06-17 08:21 | Emergency (ER) | payer MEDICARE, OTHER, SELFPAY ==
[2019-12-10 08:47] VITALS: BMI 41.0
[2020-06-17 08:21] VITALS: BP 172/89; PULSE 82; RESP 16; TEMP 36.3; O2SAT 96; BMI 38.7
--- NOTE | 2020-06-17 08:38 | RAD_ITS ---
STUDY: X-RAY CHEST REASON FOR EXAM: Male, 74 years old. Dyspnea TECHNIQUE: Single AP portable view of the chest. COMPARISON: Comparison is made with prior study dated 02/08/2019. FINDINGS: EKG electrodes are seen. There is elevation of the right hemidiaphragm. There is no demonstrated pleural abnormality. There is mild cardiac enlargement. Normal mediastinum and sarah. Normal visualized pulmonary arteries. There is atherosclerotic tortuosity of the aortic arch and descending thoracic aorta. Normal visualized thoracic spine. Normal visualized ribs, clavicles, and shoulders. There is no demonstrated abnormality of the visualized soft tissue structures of the upper abdomen. RAD/Chest 1 View (Portable) IMPRESSION: Mild cardiomegaly. The lungs are clear. Electronically Signed: Pierre Lin MD at 9:37 EDT , Service support ,
--- NOTE | 2020-06-17 08:39 | EKG12_ITS ---
Test Reason : SOB Blood Pressure : / mmHG Vent. Rate : 074 BPM Atrial Rate : 074 BPM P-R Int : 170 ms QRS Dur : 100 ms QT Int : 398 ms P-R-T Axes : 046 -29 036 degrees QTc Int : 441 ms Normal sinus rhythm Normal ECG Confirmed by NIDHI RDZ, NANCY ([id number]), material expeditor LEDA SUERO ([id number]) on 06/18/2020 9:22:49 AM Referred By: JOSEFINA Confirmed By:NANCY TERRELL MD
[2020-06-17 08:50] VITALS: PULSE 76; RESP 18
[2020-06-17] MEDS: Ipratropium/Albuterol Sulfate 3 ML AMPUL.NEB INHALATION (08:50)
[2020-06-17 08:57] LABS: Absolute Lymphocyte Count 0.49 X10^3/uL (0.83-4.51); Absolute Neutrophil Count 13.1 X10^3/uL (2.0-7.7); Basophil# 0.03 X10^3/uL; Basophil% 0.2 % (0-1); Differential Indicated SCAN CRITERIA MET; Eosinophil# 0.03 X10^3/uL; Eosinophils% 0.2 % (0-5); Hematocrit 47.1 % (40-54); Hemoglobin 15.7 g/dL (13.0-16.5); Lymphocyte # 0.49 X10^3/ul (0.83-4.51); Lymphocyte % 3.4 % (19-41); Mean Corp Hgb Conc 33.3 g/dL (32-36); Mean Corpuscular Volume 93.1 fL (80-94); Mean Platelet Vol. 9.4 fl (6.2-12.0); Monocyte# 0.58 X10^3/uL; Monocyte% 4.1 % (0-10); NRBC Flagged by Analyzer 0 % (0-5); Neutrophil # 13.05 X10^3/uL (2.7-7.7); Neutrophil % 91.5 % (47-70); POSITIVE DIFFERENTIAL YES; Platelet Count 188 K/mm3 (150-450); RBC Distribution Width CV 12.4 % (11.6-14.6); RBC Distribution Width SD 42.2 fl (35.1-43.9); Red Blood Count 5.06 M/mm3 (4.6-6.2); White Blood Count 14.3 K/mm3 (4.4-11.0)
--- NOTE | 2020-06-17 08:58 | ED.VIS.DYS ---
HPI History of Present Illness Chief Complaint: Shortness of Breath Informant: patient Onset/Context/Timing Onset: Weeks (2) Context: gradual Timing: Continuous Quality: Positive for Dyspnea on exertion (Going upstairs) Worsened by: Exertion Relieved by: Nothing Associated Symptoms subjective, chills and sweats; Negative for cough, rhinorrhea, ear pain, fever or sore throat Chest Pain: Positive for Intermittent Narrative Narrative: Patient presents with shortness of breath that has gradually been getting worse over the past 2 weeks. Patient states he did have his first Moderna COVID-19 vaccine on 06/05/2020. Patient states he is scheduled for his second vaccine on 07/03/2020. Patient denies any cough. Patient denies any exposures to COVID-19. Patient admits to subjective chills and sweats. Patient states he had some tightness in his chest earlier today but this resolved after approximately 15 minutes. Patient states his breathing is worse whenever he goes up steps. Patient denies any nausea or vomiting. Patient does admit to some urinary urgency and frequency. Patient states he only urinates small amounts whenever he urinates. [facility] Medical History Angina of effort Anxiety and depression Atherosclerotic heart disease of [place] coronary artery with other forms of angina pectoris (07/05/17) BPH (benign prostatic hyperplasia) Chronic renal failure, stage 3 (moderate) Essential (primary) hypertension Former cigarette smoker Hypertension Nonrheumatic aortic (valve) insufficiency Obesity Obstructive sleep apnea Rheumatic heart disease Secondary pulmonary arterial hypertension Home Medications aspirin 81 mg PO DAILY@0800 02/08/19 [History Last Taken Unknown] atorvastatin 40 mg tablet 40 mg PO QHS #90 tab 06/05/19 [Rx Last Taken Unknown] clopidogrel 75 mg tablet 75 mg PO DAILY #90 tab 06/05/19 [Rx Last Taken Unknown] valsartan 80 mg tablet 80 mg PO DAILY #90 tab 06/05/19 [Rx Last Taken Unknown] pantoprazole 40 mg tablet,delayed release 40 mg PO BID #180 tab 06/11/20 [Rx Last Taken Unknown] cephalexin 500 mg PO Q6 #20 capsule 06/17/20 [Rx Last Taken Unknown] metoprolol tartrate 25 mg PO BID 06/17/20 [History Last Taken Unknown] paroxetine HCl [Paxil] 40 mg PO DAILY 06/17/20 [History Last Taken Unknown] Allergy/AdvReac Type Severity Reaction Status Date / Time Sulfa (Sulfonamide Allergy Unknown Verified 12/10/19 08:45 Antibiotics) Family History Other Unknown Family History d/t Adoption Surgical History H/O colonoscopy with polypectomy History of coronary artery stent placement History of left heart catheterization (02/08/19) History of transurethral resection of prostate Hx of cholecystectomy Social History Smoking Status: Former smoker alcohol intake: never substance use type: does not use what type of physical activity do you participate in: walking frequency: 5-6 times per week ROS ROS ED Constitutional Constitutional ED: Reports chills and sweats; Denies fever(s) Eyes Eyes: Denies blurry vision or change in vision ENT ENT ED: Denies rhinorrhea or sore throat Cardiovascular Cardiovascular: Reports chest pain; Denies palpitations Respiratory/Chest Respiratory/Chest: Reports dyspnea; Denies cough Gastrointestinal Gastrointestinal: Denies nausea or vomiting Genitourinary Genitourinary ED: Reports urinary frequency; Denies dysuria Musculoskeletal Musculoskeletal: Denies back pain or neck pain Integumentary Denies abscess or rash Neurologic Neurologic: Denies headache(s), paresthesias or weakness Allergic/Immunologic Allergic/Immunologic ED: Denies mouth swelling or urticaria EXAM Physical Exam Const Vital Signs: 06/17/20 08:21 06/17/20 08:34 06/17/20 08:50 Temperature 97.3 F L Temperature Source Temporal Pulse Rate 82 76 Respiratory Rate 16 18 Respiratory Effort Normal Non-Labored Respiratory Pattern Normal Blood Pressure 172/89 H Blood Pressure Mean 116 Pulse Ox 96 Oxygen Delivery Method Room Air Room Air Fraction of Inspired Oxygen (FIO2) 94 06/17/20 09:21 06/17/20 12:12 Temperature Temperature Source Pulse Rate 74 88 Respiratory Rate 25 H 25 H Respiratory Effort Respiratory Pattern Blood Pressure 161/77 H 175/87 H Blood Pressure Mean 105 116 Pulse Ox 94 95 Oxygen Delivery Method Room Air Room Air Fraction of Inspired Oxygen (FIO2) Positive well nourished, well developed and obese General Appearance ED: well developed Nutritional Appearance: obese HEENT Reports moist mucous membranes Neck supple and no JVD Resp normal respiratory effort and clear to auscultation bilaterally Cardio regular rate and regular rhythm GI non-tender and non-distended Auscultation: normoactive bowel sounds Palpation: soft Extremity General Extremety ED: Negative for edema or tenderness General Extremity: Negative for edema Neuro oriented x3, CN's II-XII intact bilaterally and no sensory deficits noted Sensorium / Orientation: alert Motor Exam: strength 5/5 throughout Psych mental status grossly normal MDM MDM MDM Narrative Medical decision making narrative: COVID-19 rapid antigen was obtained and was negative. CBC shows a leukocytosis of 14.3. Urinalysis shows leukocyte esterase of 500 with greater than 100 white blood cells and 50-100 red blood cells. There is 3+ bacteria noted. Portable 1 view chest x-ray was obtained. On my interpretation, lung faith are clear. There is borderline cardiomegaly . Bony thorax is normal. There is no acute process noted. Radiologist also interpreted the x-ray and agrees. EKG was obtained. On my interpretation, it showed a normal sinus rhythm with a rate of 74. NM interval, QRS interval, and QTc intervals were all normal. [place] was normal. There are no acute ST or T wave changes. Patient was given a dose of Rocephin here. D-dimer was obtained and was within normal limits. PT with INR and PTT were normal. Patient is feeling better on reevaluation. Patient was given a prescription for Keflex. Patient was instructed to follow-up with his primary care physician in 5 to 7 days. Patient understood and was agreeable with the plan. All questions were answered. Lab Data Attestation: I reviewed the patient's lab results. Labs: Laboratory Results - last 24 hr 06/17/20 06/17/20 06/17/20 08:33 08:45 08:45 WBC 14.3 H RBC 5.06 Hgb 15.7 Hct 47.1 MCV 93.1 MCH 31.0 MCHC 33.3 RDW Std Deviation 42.2 RDW Coeff of Hardik 12.4 Plt Count 188 MPV 9.4 Immature Gran % (Auto) 0.600 Neut % (Auto) 91.5 H Lymph % (Auto) 3.4 L [place] % (Auto) 4.1 Eos % (Auto) 0.2 Baso % (Auto) 0.2 Absolute Neuts (auto) 13.1 H Absolute Lymphs (auto) 0.49 L Nucleated RBC % 0 Platelet Estimate ADEQUATE RBC Morphology NORM C+C PT Cancelled INR Cancelled APTT Cancelled D-Dimer Quant (PE/DVT) Cancelled Sodium Potassium Chloride Carbon Dioxide Anion Gap BUN Creatinine Estim Creat Clear Calc Est GFR (MDRD) Af Amer Est GFR (MDRD) Non-Af BUN/Creatinine Ratio Glucose Calcium Total Bilirubin AST ALT Alkaline Phosphatase Troponin I Total Protein Albumin Globulin Albumin/Globulin Ratio Urine Color Straw Urine Clarity Cloudy Urine pH 6.5 Ur Specific [place] 1.015 Urine Protein 100 H Urine Glucose (UA) Normal Urine Ketones 50 H Urine Occult Blood 250 H Urine Nitrite Negative Urine Bilirubin Negative Urine Urobilinogen Normal Ur Leukocyte Esterase 500 H Urine RBC 50-100 SEEN Urine WBC >100 SEEN Ur Squamous Epith Cells 0-5 SEEN Urine Bacteria 3+ Urine Mucus 0 SEEN 06/17/20 06/17/20 06/17/20 08:45 09:30 10:04 WBC RBC Hgb Hct MCV MCH MCHC RDW Std Deviation RDW Coeff of Hardik Plt Count MPV Immature Gran % (Auto) Neut % (Auto) Lymph % (Auto) [place] % (Auto) Eos % (Auto) Baso % (Auto) Absolute Neuts (auto) Absolute Lymphs (auto) Nucleated RBC % Platelet Estimate RBC Morphology PT Cancelled Cancelled INR Cancelled Cancelled APTT Cancelled Cancelled D-Dimer Quant (PE/DVT) Cancelled Cancelled Sodium 140 Potassium 4.0 Chloride 106 Carbon Dioxide 28.0 Anion Gap 6 BUN 15 Creatinine 1.48 H Estim Creat Clear Calc 45.90 Est GFR (MDRD) Af Amer 60 Est GFR (MDRD) Non-Af 49 L BUN/Creatinine Ratio 10.1 Glucose 135 H Calcium 8.9 Total Bilirubin 1.00 AST 16 ALT 27 Alkaline Phosphatase 67 Troponin I < 0.015 Total Protein 7.4 Albumin 3.7 Globulin 3.7 Albumin/Globulin Ratio 1.0 Urine Color Urine Clarity Urine pH Ur Specific [place] Urine Protein Urine Glucose (UA) Urine Ketones Urine Occult Blood Urine Nitrite Urine Bilirubin Urine Urobilinogen Ur Leukocyte Esterase Urine RBC Urine WBC Ur Squamous Epith Cells Urine Bacteria Urine Mucus 06/17/20 10:59 WBC RBC Hgb Hct MCV MCH MCHC RDW Std Deviation RDW Coeff of Hardik Plt Count MPV Immature Gran % (Auto) Neut % (Auto) Lymph % (Auto) [place] % (Auto) Eos % (Auto) Baso % (Auto) Absolute Neuts (auto) Absolute Lymphs (auto) Nucleated RBC % Platelet Estimate RBC Morphology PT 13.5 INR 1.1 APTT 25.2 D-Dimer Quant (PE/DVT) 0.39 Sodium Potassium Chloride Carbon Dioxide Anion Gap BUN Creatinine Estim Creat Clear Calc Est GFR (MDRD) Af Amer Est GFR (MDRD) Non-Af BUN/Creatinine Ratio Glucose Calcium Total Bilirubin AST ALT Alkaline Phosphatase Troponin I Total Protein Albumin Globulin Albumin/Globulin Ratio Urine Color Urine Clarity Urine pH Ur Specific [place] Urine Protein Urine Glucose (UA) Urine Ketones Urine Occult Blood Urine Nitrite Urine Bilirubin Urine Urobilinogen Ur Leukocyte Esterase Urine RBC Urine WBC Ur Squamous Epith Cells Urine Bacteria Urine Mucus Radiography Chest X-Ray - ED: 1 View, Read by ED Physician, Read by Radiologist and Cardiomegaly Diagnostic Testing: Radiology Impression Chest X-Ray 06/17/20 08:38 IMPRESSION: Mild cardiomegaly. The lungs are clear. Electronically Signed: Pierre Lin MD at 9:37 EDT , Service support , EKG Initial EKG: Attestation: I personally reviewed and interpreted this EKG as follows: Interpretation: Sinus Rhythm (74) and No Acute Injury Pattern Prior EKG tracings: available for review Prior: Unchanged (02/08/2019) Discharge Plan Triage Chief Complaint: Shortness of Breath ED Provider: Shaun Paredes Dx/Rx/DC Orders Clinical Impression: Urinary tract infection, Dyspnea Instructions: ED Dyspnea, ED Bladder Infection, Male (Adult) Prescriptions: New cephalexin [cephalexin] 500 MG capsule 500 mg PO Q6 Qty: 20 RF: 0 No Action atorvastatin 40 mg tablet 40 mg PO QHS Qty: 90 RF: 3 valsartan 80 mg tablet 80 mg PO DAILY Qty: 90 RF: 3 clopidogrel 75 mg tablet 75 mg PO DAILY Qty: 90 RF: 3 aspirin 81 MG tablet,chewable 81 mg PO DAILY@0800 RF: 0 paroxetine HCl [Paxil] 40 mg Tablet 40 mg PO DAILY RF: 0 metoprolol tartrate 25 mg tablet 25 mg PO BID RF: 0 pantoprazole 40 mg tablet,delayed release (DR/EC) 40 mg PO BID Qty: 180 RF: 3 Primary Care Provider: Roxi Benedict NP Referrals: Roxi Benedict NP, [facility] [Primary Care Provider] - 5-7 Days Disposition Disposition: Home, self care Discharge Date/Time: 06/17/20 12:14
--- NOTE | 2020-06-17 09:05 | NURSING ---
BLUE TOP HEMOLIZED. LAB TO REPRINT LABEL
[2020-06-17 09:12] VITALS: O2SAT 93
[2020-06-17 09:21] VITALS: BP 161/77; PULSE 74; RESP 25; O2SAT 94
[2020-06-17 09:24] LABS: AST(SGOT) 16 U/L (15-37); Alanine Aminotransfer ALT/SGPT 27 U/L (16-61); Albumin, Serum 3.7 g/dL (3.2-5.0); Alkaline Phosphatase 67 U/L (45-117); Anion Gap 6 (5-15); BUN 15 mg/dL (7-18); BUN/Creat Ratio 10.1 RATIO (10-20); Calcium,Total 8.9 mg/dL (8.5-10.1); Chloride 106 mmol/L (98-107); Creatinine, Serum 1.48 mg/dL (0.70-1.30); EST Glomerular Filtration Rate 49 mL/min (>60); Est Glom Filt Rate - Afr Amer 60 mL/min (>60); Globulin 3.7 g/dL (2.2-4.2); Glucose 135 mg/dL (74-106); Protein, Total 7.4 g/dL (6.4-8.2); Sodium Level 140 mmol/L (136-145)
[2020-06-17 09:28] LABS: Platelet Estimate ADEQUATE (ADEQ); Red Cell Morphology NORM C+C NORMAL (NORM C&C)
[2020-06-17 09:43] LABS: Mucous, Urine 0 SEEN /hpf (<or=2+)
[2020-06-17 09:47] LABS: Color, Urine Straw (Yellow); Glucose, Dipstick Normal (Normal); Ketone-Dipstick 50 mg/dl (Negative); Leukocyte Esterase-Dipstick 500 /ul (Negative); Nitrite-Dipstick Negative (Negative); Occult Blood-Urine 250 /ul (Negative); Protein-Dipstick 100 mg/dl (Negative); Specific Gravity, Urine 1.015 (1.002-1.030); Urine Bilirubin Dipstick Negative (Negative); Urine Clarity Cloudy (Clear); Urine Urobilinogen Normal (Normal); Urine pH 6.5 (5.0 - 8.0)
[2020-06-17 10:00] LABS: Red Blood Cells-Urine 50-100 SEEN /hpf (0-5); White Blood Cells >100 SEEN /hpf (0-5)
[2020-06-17 10:01] LABS: Bacteria 3+ /hpf (None Seen); Squamous Epithelial Cells - UA 0-5 SEEN /hpf (0-5)
[2020-06-17] MEDS: Ceftriaxone 1 GM/50 ML BAG IV (10:46)
[2020-06-17 11:18] LABS: International Normalized Ratio 1.1; Prothrombin Time (Protime)PT. 13.5 SECONDS (11.7-14.9)
[2020-06-17 11:19] LABS: Partial Thromboplast Time 25.2 Seconds (24.1-36.2)
[2020-06-17 11:21] LABS: D-Dimer Quantitative (DVT/PE) 0.39 FEU/ug/m (0.27-0.49)
[2020-06-17 12:12] VITALS: BP 175/87; PULSE 88; RESP 25; O2SAT 95
== END 2020-06-17 12:14 | disposition home or self-care (01) ==
PROVIDERS: Emergency Provider Emergency Medicine; PCP Nurse Practitioner Family
DX: N39.0 Urinary tract infection, site not specified (principal); R06.02 Shortness of breath; I25.118 Atherosclerotic heart disease of native coronary artery with other forms of angina pectoris; I12.9 Hypertensive chronic kidney disease with stage 1 through stage 4 chronic kidney disease, or unspecified chronic kidney disease; N18.30 Chronic kidney disease, stage 3 unspecified; I27.21 Secondary pulmonary arterial hypertension; I35.1 Nonrheumatic aortic (valve) insufficiency; N40.1 Benign prostatic hyperplasia with lower urinary tract symptoms; R39.15 Urgency of urination; R35.0 Frequency of micturition; F32.9 Major depressive disorder, single episode, unspecified; F41.9 Anxiety disorder, unspecified; E66.9 Obesity, unspecified; Z79.82 Long term (current) use of aspirin; Z79.01 Long term (current) use of anticoagulants; Z79.899 Other long term (current) drug therapy; Z87.891 Personal history of nicotine dependence
CPT/HCPCS: 36415; 71045; 80053; 81001; 84484; 85025; 85379; 85610; 85730; 87426; 93005; 96365; 99285; A4216

== ENCOUNTER 2021-04-16 11:38 | Observation (INO) | payer MEDICARE, SELFPAY ==
[2021-04-16] VITALS (14 sets, daily range): BP systolic 135–196; BP diastolic 53–94; PULSE 45–75; RESP 16–24; TEMP 34.9–36.9; O2SAT 93–98; BMI 38.3
--- NOTE | 2021-04-16 11:47 | EKG12_ITS ---
Test Reason : CP Blood Pressure : / mmHG Vent. Rate : 065 BPM Atrial Rate : 065 BPM P-R Int : 174 ms QRS Dur : 102 ms QT Int : 432 ms P-R-T Axes : 050 -24 039 degrees QTc Int : 449 ms Normal sinus rhythm Normal ECG Confirmed by NIDHI RDZ, NANCY ([id number]), brands editor LEDA SUERO ([id number]) on 04/17/2021 9:14:07 AM Referred By: MARCO Confirmed By:NANCY TERRELL MD
--- NOTE | 2021-04-16 12:02 | RAD_ITS ---
STUDY: X-RAY CHEST REASON FOR EXAM: Male, 75 years old. CP TECHNIQUE: Single AP portable view of the chest. COMPARISON: Comparison is made with prior examination dated 06/17/2020. FINDINGS: The lungs are clear and expanded. Scattered calcified granulomas. There is no demonstrated pleural abnormality. Normal size heart. Normal mediastinum and sarah. Normal visualized pulmonary arteries. There is atherosclerotic tortuosity of the aortic arch and descending thoracic aorta. There are diffuse degenerative changes of the visualized thoracic spine. Normal visualized ribs, clavicles, and shoulders. There is no demonstrated abnormality of the visualized soft tissue structures of the upper abdomen. RAD/Chest 1 View IMPRESSION: No acute abnormality is seen. Electronically Signed: Pierre Lin MD at 12:23 EST ,
--- NOTE | 2021-04-16 12:52 | EDS_ITS ---
HPI History of Present Illness Chief Complaint: Chest Pain Narrative Narrative: 75-year-old male with PMH of HTN, HLD, CAD with 3 stents in 2018 presents with chest pain. Over the last 3 weeks he has had exertional chest pressure and shortness of breath. He states he notices it after going up stairs but now it is occurring while walking through his home. No pain at rest. It feels similar to his prior CAD. He follows with Dr. Beach and denies having a stress test since 2018. Denies smoking. No fever, cough, or leg swelling. He is on asa/plavix. [facility] Medical History Angina of effort Anxiety and depression Atherosclerotic heart disease of [place] coronary artery with other forms of angina pectoris (07/05/17) BPH (benign prostatic hyperplasia) Chronic renal failure, stage 3 (moderate) Essential (primary) hypertension Former cigarette smoker Hypertension Nonrheumatic aortic (valve) insufficiency Obesity Obstructive sleep apnea Rheumatic heart disease Secondary pulmonary arterial hypertension Home Medications aspirin 81 mg PO DAILY@0800 02/08/19 [History Last Taken Unknown] cephalexin 500 mg PO Q6 #20 capsule 06/17/20 [Rx Last Taken Unknown] paroxetine HCl [Paxil] 40 mg PO DAILY 06/17/20 [History Last Taken Unknown] clopidogrel 75 mg tablet 75 mg PO DAILY #90 tab 07/16/20 [Rx Last Taken Unknown] valsartan 80 mg tablet 80 mg PO DAILY #90 tab 07/16/20 [Rx Last Taken Unknown] atorvastatin 40 mg tablet 40 mg PO QHS #90 tab 07/17/20 [Rx Last Taken Unknown] metoprolol tartrate 25 mg tablet 12.5 mg PO BID #90 tab 09/29/20 [Rx Last Taken Unknown] pantoprazole 40 mg tablet,delayed release 40 mg PO BID #180 tab 03/26/21 [Rx Last Taken Unknown] Allergy/AdvReac Type Severity Reaction Status Date / Time Sulfa (Sulfonamide Allergy Unknown Verified 04/16/21 11:41 Antibiotics) Family History Other Unknown Family History d/t Adoption Surgical History H/O colonoscopy with polypectomy History of coronary artery stent placement History of left heart catheterization (02/08/19) History of transurethral resection of prostate Hx of cholecystectomy Social History Smoking Status: Former smoker alcohol intake: never substance use type: does not use what type of physical activity do you participate in: walking frequency: 5-6 times per week ROS ROS ED ROS Narrative Constitutional: Negative for fever, chills, malaise. Eyes: Negative for visual change. ENT: Negative for sore throat, ear pain, rhinorrhea. CVS: Positive for chest pain. Negative for palpitations, syncope. Respiratory: Positive for shortness of breath. Negative for cough, orthopnea. GI: Negative for abdominal pain, nausea, vomiting, diarrhea, constipation, melena, hematochezia. : Negative for dysuria, hematuria or frequency. Neuro: Negative for headache, motor/sensory dysfunction. Skin: Negative for rash, abscess, or wound. Musc: Negative for joint pain, swelling, trauma. Heme: Negative for easy bruising, bleeding, lymphadenopathy. EXAM Physical Exam Narrative Exam Narrative: CONST: Patient sitting in no acute distress. EYES: Normal inspection. ENT: Normal inspection, moist mucous membranes. NECK: Normal inspection. RESP: No respiratory distress, CTAB. CVS: Regular rate and rhythm, no murmur, no gallop. ABD: Soft and nontender, no guarding or rebound, nondistended. SKIN: Color normal, no rash, warm, dry, intact. EXTREMITIES: Normal appearance, no pedal edema. NEURO: Oriented x4. PSYCH: Normal affect. Const Vital Signs: 04/16/21 11:39 04/16/21 12:48 04/16/21 13:09 Temperature 96.5 F L Temperature Source Temporal Pulse Rate 75 55 L Respiratory Rate 16 18 Respiratory Effort Short of Breath Blood Pressure 188/94 H Blood Pressure Mean 125 Pulse Ox 98 95 Oxygen Delivery Method Room Air Room Air 04/16/21 13:10 04/16/21 13:45 04/16/21 14:00 Temperature 97.0 F L Temperature Source Temporal Pulse Rate 54 L 48 L Respiratory Rate 21 H 19 H Respiratory Effort Blood Pressure 135/74 H 155/76 H Blood Pressure Mean 94 102 Pulse Ox 95 95 Oxygen Delivery Method Room Air Room Air Room Air 04/16/21 15:00 04/16/21 15:57 04/16/21 16:00 Temperature Temperature Source Pulse Rate 50 L 49 L 47 L Respiratory Rate 21 H 23 H 24 H Respiratory Effort Blood Pressure 163/64 H 178/67 H 173/71 H Blood Pressure Mean 97 104 105 Pulse Ox 97 95 97 Oxygen Delivery Method Room Air Room Air Room Air Heart Score History: Highly Suspicious ECG: Normal Age: >/= 65 years Risk Factors: >/= 3 Risk Factors or History of CAD Score: 6 MDM MDM MDM Narrative Medical decision making narrative: Patient with history of CAD presents with pr ogressive worsening exertional chest pain and dyspnea. He appears well and nontoxic. He was initially hypertensive with otherwise normal vital signs. Medical exam is unremarkable. EKG is sinus rhythm at rate of 65 with no acute ischemic changes. Troponin is 10, delta 11. Chest x-ray shows no acute process. He states his symptoms feel like his previous CAD and with worsening symptoms this may be unstable angina. With heart score of 6 I feel he needs admitted. I made cardiology aware that he will be admitted and case was discussed with the hospitalist. Diagnoses 1. Chest pain 2. History of CAD Lab Data Labs: Laboratory Results - last 24 hr 04/16/21 04/16/21 04/16/21 13:05 13:05 15:00 WBC 6.2 RBC 5.11 Hgb 15.9 Hct 47.2 MCV 92.4 MCH 31.1 MCHC 33.7 RDW Std Deviation 43.2 RDW Coeff of Hardik 12.7 Plt Count 194 MPV 9.6 Immature Gran % (Auto) 0.200 Neut % (Auto) 76.7 H Lymph % (Auto) 15.6 L [place] % (Auto) 5.7 Eos % (Auto) 1.0 Baso % (Auto) 0.8 Absolute Neuts (auto) 4.7 Absolute Lymphs (auto) 0.96 Nucleated RBC % 0 Sodium 141 Potassium 3.8 Chloride 107 Carbon Dioxide 30.0 Anion Gap 4 L BUN 15 Creatinine 1.28 Estim Creat Clear Calc 53.93 Est GFR (MDRD) Af Amer 71 Est GFR (MDRD) Non-Af 58 L BUN/Creatinine Ratio 11.7 Glucose 118 H Calcium 8.8 Troponin I High Sens 10 11 Radiography Chest X-Ray - ED: 1 View, Read by ED Physician, Normal, Heart, Lungs, Mediastinum and Bony Structures Diagnostic Testing: Clinical Impression(s) from Imaging Studies Chest X-Ray 04/16/21 12:02 IMPRESSION: No acute abnormality is seen. Electronically Signed: Pierre Lin MD at 12:23 EST , EKG Initial EKG: Attestation: I personally reviewed and interpreted this EKG as follows: Interpretation: Sinus Rhythm (65) Comments: Normal sinus rhythm, no ST-T wave changes, ND interval 174 ms, QRS duration 102 ms, QTC 449 ms Discharge Plan Triage Chief Complaint: Chest Pain ED Provider: Esme Webb Dx/Rx/DC Orders Prescriptions: No Action aspirin 81 MG tablet,chewable 81 mg PO DAILY@0800 RF: 0 paroxetine HCl [Paxil] 40 mg Tablet 40 mg PO DAILY RF: 0 cephalexin [cephalexin] 500 MG capsule 500 mg PO Q6 Qty: 20 RF: 0 valsartan 80 mg tablet 80 mg PO DAILY Qty: 90 RF: 3 clopidogrel 75 mg tablet 75 mg PO DAILY Qty: 90 RF: 3 atorvastatin 40 mg tablet 40 mg PO QHS Qty: 90 RF: 3 metoprolol tartrate 25 mg tablet 12.5 mg PO BID Qty: 90 RF: 3 pantoprazole 40 mg tablet,delayed release (DR/EC) 40 mg PO BID Qty: 180 RF: 3 Primary Care Provider: Roxi Benedict NP
[2021-04-16] MEDS: Aspirin 81 MG TAB.CHEW 324 MG PO (12:56)
[2021-04-16 13:34] LABS: Absolute Lymphocyte Count 0.96 X10^3/uL (0.83-4.51); Absolute Neutrophil Count 4.7 X10^3/uL (2.0-7.7); Basophil# 0.05 X10^3/uL; Basophil% 0.8 % (0-1); Eosinophil# 0.06 X10^3/uL; Hematocrit 47.2 % (40-54); Hemoglobin 15.9 g/dL (13.0-16.5); Lymphocyte # 0.96 X10^3/ul (0.83-4.51); Lymphocyte % 15.6 % (19-41); Mean Corp Hgb Conc 33.7 g/dL (32-36); Mean Corpuscular Hgb 31.1 pg (27.0-32.0); Mean Corpuscular Volume 92.4 fL (80-94); Mean Platelet Vol. 9.6 fl (6.2-12.0); Monocyte# 0.35 X10^3/uL; Monocyte% 5.7 % (0-10); NRBC Flagged by Analyzer 0 % (0-5); Neutrophil # 4.73 X10^3/uL (2.7-7.7); Neutrophil % 76.7 % (47-70); Platelet Count 194 K/mm3 (150-450); RBC Distribution Width CV 12.7 % (11.6-14.6); RBC Distribution Width SD 43.2 fl (35.1-43.9); Red Blood Count 5.11 M/mm3 (4.6-6.2); White Blood Count 6.2 K/mm3 (4.4-11.0)
[2021-04-16 13:51] LABS: Anion Gap 4 (5-15); BUN 15 mg/dL (7-18); BUN/Creat Ratio 11.7 RATIO (10-20); Calcium,Total 8.8 mg/dL (8.5-10.1); Chloride 107 mmol/L (98-107); Creatinine, Serum 1.28 mg/dL (0.70-1.30); EST Glomerular Filtration Rate 58 mL/min (>60); Est Glom Filt Rate - Afr Amer 71 mL/min (>60); Estimated Creatinine Clearance 53.93 ml/min; Glucose 118 mg/dL (74-106); Potassium 3.8 mmol/L (3.5-5.1); Sodium Level 141 mmol/L (136-145); Troponin-I HS 10 pg/mL (3.0-78.0)
[2021-04-16 15:48] LABS: Troponin-I HS 11 pg/mL (3.0-78.0)
--- NOTE | 2021-04-16 17:22 | HP.PCM.HOS_ITS ---
HPI - General General Date of Admission: 04/16/21 Date of Service: 04/16/21 Chief Complaint: chest pain HPI Narrative DUNCAN SALDANA, is a 75 M who presents with chest pain. Over the past 3 weeks patient has been having exertional chest pain that is midsternal. Associated shortness of breath and diaphoresis. Patient has had prior PCI and this feels similar to prior myocardial infarction's. He presents to the emergency room and underwent a work-up including EKG and troponins which were all negative. But given his history patient being admitted for further cardiac evaluation. [facility] Medical History Angina of effort Anxiety Anxiety and depression Atherosclerotic heart disease of [place] coronary artery with other forms of angina pectoris (07/05/17) BPH (benign prostatic hyperplasia) Chest pain Chronic renal failure, stage 3 (moderate) Coronary artery disease CPAP (continuous positive airway pressure) dependence Essential (primary) hypertension Former cigarette smoker Former smoker Hypertension Nonrheumatic aortic (valve) insufficiency Obesity Obstructive sleep apnea Rheumatic heart disease Secondary pulmonary arterial hypertension Sleep apnea Home Medications aspirin 81 mg PO DAILY@0800 02/08/19 [History Last Taken 04/16/21] clopidogrel 75 mg tablet 75 mg PO DAILY #90 tab 07/16/20 [Rx Last Taken 04/16/21] valsartan 80 mg tablet 80 mg PO DAILY #90 tab 07/16/20 [Rx Last Taken 04/16/21] atorvastatin 40 mg tablet 40 mg PO QHS #90 tab 07/17/20 [Rx Last Taken 04/15/21] metoprolol tartrate 25 mg tablet 12.5 mg PO BID #90 tab 09/29/20 [Rx Last Taken 04/16/21] pantoprazole 40 mg tablet,delayed release 40 mg PO BID #180 tab 03/26/21 [Rx Last Taken 04/16/21] Allergy/AdvReac Type Severity Reaction Status Date / Time Sulfa (Sulfonamide Allergy Unknown Verified 04/16/21 11:41 Antibiotics) Family History Other Unknown Family History d/t Adoption Surgical History H/O colonoscopy with polypectomy History of coronary artery stent placement History of left heart catheterization (02/08/19) History of transurethral resection of prostate Hx of cholecystectomy Social History Smoking Status: Former smoker alcohol intake: never substance use type: does not use what type of physical activity do you participate in: walking frequency: 5-6 times per week ROS ROS Narrative All review of systems were negative except as mentioned above in the history of present illness and the other review of systems. Vital Signs Vital Signs Vital Signs: 04/16/21 11:39 04/16/21 12:48 04/16/21 13:09 Temperature 35.8 C L Temperature Source Temporal Pulse Rate 75 55 L Respiratory Rate 16 18 Respiratory Effort Short of Breath Blood Pressure 188/94 H Blood Pressure Mean 125 Pulse Ox 98 95 Oxygen Delivery Method Room Air Room Air 04/16/21 13:10 04/16/21 13:45 04/16/21 14:00 Temperature 36.1 C L Temperature Source Temporal Pulse Rate 54 L 48 L Respiratory Rate 21 H 19 H Respiratory Effort Blood Pressure 135/74 H 155/76 H Blood Pressure Mean 94 102 Pulse Ox 95 95 Oxygen Delivery Method Room Air Room Air Room Air 04/16/21 15:00 04/16/21 15:57 04/16/21 16:00 Temperature Temperature Source Pulse Rate 50 L 49 L 47 L Respiratory Rate 21 H 23 H 24 H Respiratory Effort Blood Pressure 163/64 H 178/67 H 173/71 H Blood Pressure Mean 97 104 105 Pulse Ox 97 95 97 Oxygen Delivery Method Room Air Room Air Room Air 04/16/21 16:51 Temperature 36.3 C L Temperature Source Temporal Pulse Rate 45 L Respiratory Rate 23 H Respiratory Effort Blood Pressure 158/61 H Blood Pressure Mean 93 Pulse Ox 96 Oxygen Delivery Method Room Air Weight Weight: 124.738 kg Body Mass Index (BMI) 38.3 Physical Exam Const alert and no apparent distress General Appearance: cooperative HEENT normocephalic, head/scalp atraumatic and hearing grossly normal bilaterally Resp normal respiratory effort, no retractions, no use of accessory muscles and clear to auscultation bilaterally Cardio regular rate, regular rhythm, S1 normal heart sound and S2 normal heart sound GI normal to inspection, nondistended, normoactive bowel sounds, soft to palpation, non-tender and non-distended Extremity normal to inspection Neuro oriented x3 Sensorium / Orientation: awake, alert and oriented to person Results Lab / Micro Data Attestation: I reviewed the patient's lab results. Result Diagrams: 04/16/21 13:05 04/16/21 13:05 Labs: Laboratory Results - last 24 hr 04/16/21 13:05: WBC 6.2, RBC 5.11, Hgb 15.9, Hct 47.2, MCV 92.4, MCH 31.1, MCHC 33.7, RDW Std Deviation 43.2, RDW Coeff of Hardik 12.7, Plt Count 194, MPV 9.6, Immature Gran % (Auto) 0.200, Neut % (Auto) 76.7 H, Lymph % (Auto) 15.6 L, [place] % (Auto) 5.7, Eos % (Auto) 1.0, Baso % (Auto) 0.8, Absolute Neuts (auto) 4.7, Absolute Lymphs (auto) 0.96, Nucleated RBC % 0 04/16/21 13:05: Sodium 141, Potassium 3.8, Chloride 107, Carbon Dioxide 30.0, Anion Gap 4 L, BUN 15, Creatinine 1.28, Estim Creat Clear Calc 53.93, Est GFR (MDRD) Af Amer 71, Est GFR (MDRD) Non-Af 58 L, BUN/Creatinine Ratio 11.7, Glucose 118 H, Calcium 8.8, Troponin I High Sens 10 04/16/21 15:00: Troponin I High Sens 11 EKG Initial EKG: Attestation: I personally reviewed and interpreted this EKG as follows: Prior EKG tracings: available for review EKG Rhythm Intrepretation: Sinus Rhythm Radiology Impression Chest X-Ray 04/16/21 12:02 IMPRESSION: No acute abnormality is seen. Electronically Signed: Pierre Lin MD at 12:23 EST , Assessment & Plan Assessment/Plan (1) Chest pain: QUALIFIERS: Chest pain type: chest pain due to myocardial ischemia Ischemic chest pain type: stable angina pectoris Qualified Code(s): I20.8 - Other forms of angina pectoris PLAN: 1. Stable angina pectoris Patient has a heart score of 5 Plan will be for a chemical nuclear stress test on the fourth and based on that patient is to be discharged home or cardiology be consulted if abnormal. 2. CAD Stable Continue aspirin, clopidogrel, metoprolol tartrate and valsartan 3. VTE prophylaxis: Not indicated this time given observation status 4. COVID-19 vaccination status: Patient has been vaccinated and boosted. Charges/Coding Visit Charges OBSV E&M: 68161 Initial observation care L2
--- NOTE | 2021-04-16 17:47 | EKG12_ITS ---
Test Reason : CP ADMIT Blood Pressure : / mmHG Vent. Rate : 049 BPM Atrial Rate : 049 BPM P-R Int : 192 ms QRS Dur : 098 ms QT Int : 444 ms P-R-T Axes : 028 -13 034 degrees QTc Int : 401 ms Marked sinus bradycardia Abnormal ECG When compared with ECG of 16-APR-2021 11:49, MANUAL COMPARISON REQUIRED, DATA IS UNCONFIRMED Confirmed by FRANCESCO RDZ, OLGA ([id number]), editor at large LEDA SUERO ([id number]) on 04/17/2021 1:41:32 PM Referred By: DR RIBEIRO Confirmed By:RIO MAYA MD
[2021-04-16 19:20] LABS: Troponin-I HS 21 pg/mL (3.0-78.0)
[2021-04-16] MEDS: Pantoprazole Sodium 40 MG Tablet PO (22:24)
[2021-04-16] MEDS: Atorvastatin Calcium 40 MG Tablet PO (22:24)
[2021-04-17] VITALS (12 sets, daily range): BP systolic 130–168; BP diastolic 48–106; PULSE 47–73; RESP 16–18; TEMP 36.6–36.8; O2SAT 92–98
[2021-04-17] MEDS: Clopidogrel Bisulfate 75 MG Tablet PO (05:38)
[2021-04-17] MEDS: Aspirin 81 MG TAB.CHEW PO (05:38)
[2021-04-17] MEDS: Losartan Potassium 25 MG Tablet PO (05:39)
[2021-04-17 05:43] LABS: Cholesterol 132 mg/dL (200); High Density Lipoprotein 49 mg/dL; Triglycerides 113 mg/dL; Very Low Density Lipoprotein 23 mg/dL (5-40)
--- NOTE | 2021-04-17 05:50 | EKG12_ITS ---
Test Reason : AM EKG Blood Pressure : / mmHG Vent. Rate : 048 BPM Atrial Rate : 048 BPM P-R Int : 180 ms QRS Dur : 100 ms QT Int : 458 ms P-R-T Axes : 043 -19 051 degrees QTc Int : 409 ms Marked sinus bradycardia Abnormal ECG When compared with ECG of 16-APR-2021 19:51, MANUAL COMPARISON REQUIRED, DATA IS UNCONFIRMED Confirmed by FRANCESCO RDZ, OLGA ([id number]), acquisition editor LEDA SUERO ([id number]) on 04/17/2021 1:46:06 PM Referred By: DR RIBEIRO Confirmed By:RIO MAYA MD
--- NOTE | 2021-04-17 09:25 | CASEMGMT ---
According to the [facility] website, the following are in-network tertiary facilities: [facility], [facility], [facility], [facility], [facility], [facility], [facility], [facility], and . Megan MEEHAN CM
--- NOTE | 2021-04-17 09:32 | CL.D_ITS ---
Patient Name: DUNCAN SALDANA EDWI Study Date: 04/17/2021 Performing: Butch Beach MD Ht: 70.86 inches 180 cm : 1945 Wt: 275.58 lbs 125 kg Age: 75 Gender: male BSA: 2.41 PROCEDURE(S) PERFORMED [id number])LHC/COR/LV CLINICAL PROFILE AND INDICATIONS Indications: Worsening Angina Heart Failure: None Stress/Imaging Stress/Image Study Performed: No CAD Presentations: Unstable angina. CONCLUSIONS Known coronary artery disease with patent stent noted in the left anterior descending artery, right c oronary artery and moderate disease noted in the distal left anterior descending artery. Subclavian stenosis noted with differential blood pressures Preserved left ventricular systolic function Hypertension RECOMMENDATIONS Aggressive medical therapy and subclavian CTA as outpatient. DESCRIPTION OF PROCEDURE The patient arrived to the procedure lab. The risks and benefits of the procedure as well as a full d escription of our services here and current unavailability of surgical backup were fully explained to the patient and/or their significant other prior to the catheterization. The Timeout was completed, verifying the correct patient and procedure. The patient's procedural site was prepped and draped in the usual fashion. Local anesthetic was given subcutaneously to right radial region with Lidocaine 2% . Using a modified Seldinger technique, arterial access was obtained via the right radial artery, a 6 Fr sheath was inserted. Left Coronary Artery selective angiography was performed in multiple views u sing a 5 Fr. 4.0 [place] catheter. Right Coronary Artery selective angiography was then performed in mu ltiple views using a 5 Fr. 4.0 [place] catheter. Left Coronary Artery selective angiography was perform ed in multiple views using a 5 Fr. JL4 catheter. Left Ventriculography was performed in SHELL projection using a 5 Fr. [place] catheter. LV to AO pullback pressures were then recorded.The art erial sheath was pulled and a TR Band was applied for hemostasis. 13c air inserted. CORONARY ANGIOGRAPHY DOMINANCE: Right Dominant LEFT HEART ASSESSMENT Left Ventricular Ejection Fraction: by LV Gram 65 % Normal Left Ventricular systolic function Subclavian stenosis noted. LEFT MAIN: Mild calcification, Angiographically normal LEFT ANTERIOR DESCENDING ARTERY: Previously stented vessel is noted to be patent with mild proximal d isease mild in-stent stenosis and distal 50% LAD stenosis CIRCUMFLEX ARTERY: Previously stented vessel is noted to be patent with mild proximal disease mild in -stent stenosis and distal 50% LAD stenosis RAMUS: Mild luminal irregularities less than 30% RIGHT CORONARY ARTERY: Large dominant vessel previously stented with mild in-stent stenosis. Mild di ffuse disease noted. COMPLICATIONS No Complications PROCEDURE MEDICATIONS Fentanyl 50 mcg IV Versed 1 mg IV Oxygen: 2 L/min via nasal cannula Heparin given IA 04/17/2021 09:01:14 Verapamil 2.5mg, Ntg 100mcgs, 3000 units of Heparin given IA 04/17/2021 09:01:14 SUMMARY OF HEMODYNAMIC DATA Time AIR REST ECG 08:32:45 AO 120/74 (95) 09:03:43 AO 153/76 (108) SA 09:06:15 LV 168/1, 16 09:20:05 LV 159/1, 8 09:20:11 LV 171/8, 48 09:21:17 LVp 161/11, 30 09:21:24 AOp 164/72 (111) 09:21:29 09:29:07 Signed By Butch Beach MD On 04/17/2021 9:30:52 AM Butch Beach MD
--- NOTE | 2021-04-17 09:34 | CON.PCM.CA_ITS ---
Assessment & Plan Assessment/Plan (1) Chest pain: QUALIFIERS: Chest pain type: chest pain due to myocardial ischemia Ischemic chest pain type: stable angina pectoris Qualified Code(s): I20.8 - Other forms of angina pectoris PLAN: He does present with chest discomfort which is suggestive of his previous angina. It was recommended that he undergo a left heart catheterization. This was performed today and it demonstrated nonobstructive coronary disease. Please see report for details. * At this juncture we should increase his blood pressure medications and he can be discharged for outpatient follow-up. * He will continue on high intensity statin. (2) History of coronary artery stent placement: PLAN: Patient is status post previous angioplasty and multiple stents as noted above. We will continue outpatient follow-up. (3) Essential (primary) hypertension: PLAN: His blood pressure is suboptimally controlled. I would recommend that we increase the losartan as well as the beta-adrian. Thank you for allowing me to participate in the care of your patient. Please don't hesitate to call if any issues arise. HPI Consult Data Date of Consult: 04/17/21 HPI Narrative HPI Narrative: DUNCAN SALDANA, is a 75 M who presents to the emergency room with chest discomfort described as a heaviness which has been going on over the last 3 days or so. He says that it suggestive of the previous discomfort that he had. He was noted to have an elevated blood pressure with no EKG changes and normal troponin. Cardiology was called to see him on the basis of the character of the chest discomfort. He has a history of coronary artery disease status post PTCA/stent to left main coronary artery in 1999, PTCA/stent to LAD in 2005, PTCA/FRACISCO to RCA in June 2017, hypertension, anxiety/depression, morbid obesity, rheumatic heart disease, BPH, colon polyps, and former smoking history. He presented to [facility] in June 2017 with complaints of substernal chest discomfort on exertion. He underwent a diagnostic heart catheterization that showed severe mid to distal RCA disease. His ejection fraction was noted to be 55%, left main coronary artery was angiographically normal, LAD showed less than 30% stenosis, LCx showed less than 30% stenosis, and mid RCA showed previously placed stent as patent. He underwent PTCA/FRACISCO to distal RCA with Promus Synergy stent. He presented again in January 2019 with chest discomfort and underwent a repeat cardiac catheterization. This demonstrated luminal irregularities in the left main, previously placed stent in the proximal LAD was noted to be patent, there was disease noted of the ostial diagonal in the septal full time staff interpreter of 80%, there was 60 to 70% stenosis noted in the proximal circumflex artery, and 60 to 70% stenosis noted in the posterior descending artery. Medical therapy was recommended. He was initially prescribed Ranexa but he never picked up the prescription. He denies any palpitations or paroxysmal nocturnal dyspnea or pedal edema. [facility] Medical History Angina of effort Anxiety Anxiety and depression Atherosclerotic heart disease of [place] coronary artery with other forms of angina pectoris (07/05/17) BPH (benign prostatic hyperplasia) Chest pain Chronic renal failure, stage 3 (moderate) Coronary artery disease CPAP (continuous positive airway pressure) dependence Essential (primary) hypertension Former cigarette smoker Former smoker Hypertension Nonrheumatic aortic (valve) insufficiency Obesity Obstructive sleep apnea Rheumatic heart disease Secondary pulmonary arterial hypertension Sleep apnea Home Medications aspirin 81 mg PO DAILY@0800 02/08/19 [History Last Taken 04/16/21] clopidogrel 75 mg tablet 75 mg PO DAILY #90 tab 07/16/20 [Rx Last Taken 04/16/21] valsartan 80 mg tablet 80 mg PO DAILY #90 tab 07/16/20 [Rx Last Taken 04/16/21] atorvastatin 40 mg tablet 40 mg PO QHS #90 tab 07/17/20 [Rx Last Taken 04/15/21] metoprolol tartrate 25 mg tablet 12.5 mg PO BID #90 tab 09/29/20 [Rx Last Taken 04/16/21] pantoprazole 40 mg tablet,delayed release 40 mg PO BID #180 tab 03/26/21 [Rx Last Taken 04/16/21] Allergy/AdvReac Type Severity Reaction Status Date / Time Sulfa (Sulfonamide Allergy Unknown Verified 04/16/21 11:41 Antibiotics) Family History Other Unknown Family History d/t Adoption Surgical History H/O colonoscopy with polypectomy History of coronary artery stent placement History of left heart catheterization (02/08/19) History of transurethral resection of prostate Hx of cholecystectomy Social History Smoking Status: Former smoker alcohol intake: never substance use type: does not use what type of physical activity do you participate in: walking frequency: 5-6 times per week ROS Constitutional Constitutional: Denies fever(s) or weight loss Eyes Eyes: Reports systems reviewed and no addt'l complaints, except as documented ENT HEENT: Reports systems reviewed and no addt'l complaints, except as documented Cardiovascular Cardiovascular: Denies chest pain at rest, chest pain with activity, dyspnea at rest, dyspnea on exertion, edema, palpitations or paroxysmal nocturnal dyspnea Respiratory/Chest Respiratory/Chest: Denies dyspnea on exertion, productive cough, shortness of breath at rest or shortness of breath with exertion Gastrointestinal Gastrointestinal: Denies change in bowel habits, nausea, vomiting or weight changes Genitourinary Genitourinary: Denies difficulty urinating Musculoskeletal Musculoskeletal: Denies joint stiffness or muscle weakness Integumentary Integumentary: Denies lesions Neurologic Neurologic: Denies dizziness or syncope Psychiatric Psychiatric: Denies anxiety Endocrine Endocrinology: Denies excessive sweating or fatigue Hematologic/Lymphatic Hematologic/Lymphatic: Denies anemia Allergic/Immunologic Allergic/Immunologic: Denies seasonal rhinorrhea Physical Exam Const alert, oriented x3 and no apparent distress General Appearance: cooperative HEENT hearing grossly normal bilaterally Head and Scalp: atraumatic Eyes EOMs intact bilaterally Neck General: normal visual inspection Chest inspection of chest normal and palpation of chest normal Resp normal respiratory effort Auscultation: clear to auscultation bilaterally Cardio regular rate, regular rhythm, S1 normal heart sound and S2 normal heart sound Jugular Venous Distention: JVD GI normal to inspection, nondistended, normoactive bowel sounds Extremity normal capillary refill and no pedal edema Peripheral Pulses: Yes pulses 2+ throughout and femoral pulses present Skin no rashes or lesions noted Neuro oriented x3 and CN's II-XII intact bilaterally Psych Appearance: grossly normal and appropriate Risk Stratification Risk Stratification Applicable: Yes Age >/= 65: Yes >/= 3 CAD Risk Factors (HTN, HLD, DM, family hx of CAD, or current smoker): Yes Aspirin Use in the Past 7 Days: Yes Severe Angina (>/= episodes in 24 hours): No EKG ST Changes >/= 0.5mm: No Positive Cardiac Marker: No MORIAH Risk Stratification Score: 3 MORIAH % Risk: 13% Risk Objective Data Vital Signs: Vital Signs Temp Pulse Resp BP Pulse Ox 98.0 F 65 16 136/56 H 98 04/17/21 06:25 04/17/21 06:59 04/17/21 06:25 04/17/21 06:25 04/17/21 06:25 Oxygen Delivery Method Room Air Weight: 275 lb Body Mass Index (BMI) 38.3 Intake & Output: Intake and Output for Last 24 Hours 04/15/21 04/16/21 04/17/21 23:59 23:59 23:59 Intake Total 350 / 350 Balance 350 / 350 Lab / Micro Data Result Diagrams: 04/16/21 13:05 04/16/21 13:05 Labs: Laboratory Results - last 24 hr 04/16/21 13:05: WBC 6.2, RBC 5.11, Hgb 15.9, Hct 47.2, MCV 92.4, MCH 31.1, MCHC 33.7, RDW Std Deviation 43.2, RDW Coeff of Hardik 12.7, Plt Count 194, MPV 9.6, Immature Gran % (Auto) 0.200, Neut % (Auto) 76.7 H, Lymph % (Auto) 15.6 L, [place] % (Auto) 5.7, Eos % (Auto) 1.0, Baso % (Auto) 0.8, Absolute Neuts (auto) 4.7, Absolute Lymphs (auto) 0.96, Nucleated RBC % 0 04/16/21 13:05: Sodium 141, Potassium 3.8, Chloride 107, Carbon Dioxide 30.0, Anion Gap 4 L, BUN 15, Creatinine 1.28, Estim Creat Clear Calc 53.93, Est GFR (MDRD) Af Amer 71, Est GFR (MDRD) Non-Af 58 L, BUN/Creatinine Ratio 11.7, Glucose 118 H, Calcium 8.8, Troponin I High Sens 10 04/16/21 15:00: Troponin I High Sens 11 04/16/21 18:55: Troponin I High Sens 21 04/17/21 04:20: Triglycerides 113, Cholesterol 132, LDL Cholesterol 60, VLDL Cholesterol 23, HDL Cholesterol 49 Cardiology Labs/Tests 04/16/21 13:05: WBC 6.2, RBC 5.11, Hgb 15.9, Hct 47.2, MCV 92.4, MCH 31.1, MCHC 33.7, Plt Count 194, MPV 9.6, Immature Gran % (Auto) 0.200, Neut % (Auto) 76.7 H , Lymph % (Auto) 15.6 L, [place] % (Auto) 5.7, Eos % (Auto) 1.0, Baso % (Auto) 0.8, Absolute Neuts (auto) 4.7, Nucleated RBC % 0 04/16/21 13:05: Sodium 141, Potassium 3.8, Chloride 107, Carbon Dioxide 30.0, Anion Gap 4 L, BUN 15, Creatinine 1.28, Est GFR (MDRD) Af Amer 71, Est GFR (MDRD) Non-Af 58 L, BUN/Creatinine Ratio 11.7, Glucose 118 H, Calcium 8.8 04/17/21 04:20: Triglycerides 113, Cholesterol 132, LDL Cholesterol 60, VLDL Cholesterol 23, HDL Cholesterol 49 Rhythm: EKG: ECHO: Stress Test: Cardiac Cath: PCI: CT Surgery: Holter monitor: EPS: PPM: CXR: Chest CT Scan: Radiography Diagnostic Testing: Radiology Impression Chest X-Ray 04/16/21 12:02 IMPRESSION: No acute abnormality is seen. Electronically Signed: Pierre Lin MD at 12:23 EST ,
[2021-04-17] MEDS: Pantoprazole Sodium 40 MG Tablet PO (10:29)
[2021-04-17] MEDS: 0.9% Normal Saline 1,000 ML 60 ML IV (10:29)
[2021-04-17] MEDS: Losartan Potassium 50 MG Tablet PO (10:29)
--- NOTE | 2021-04-17 11:38 | PCM.DC.SUM ---
Providers Date of Admission: 04/16/21 Date of Discharge: 04/17/21 Primary Care Physician: RIANNA Salas Reason For Visit: CHEST PAIN Diagnosis Discharge Diagnosis (1) Chest pain: Status: Acute Code(s): R07.9 - Chest pain, unspecified Qualifiers: Chest pain type: chest pain due to myocardial ischemia Ischemic chest pain type: stable angina pectoris Qualified Code(s): I20.8 - Other forms of angina pectoris (2) History of coronary artery stent placement: Status: Resolved Code(s): Z95.5 - Presence of coronary angioplasty implant and graft (3) Essential (primary) hypertension: Status: Chronic Code(s): I10 - Essential (primary) hypertension Medications at Discharge Home Medications aspirin 81 mg PO DAILY@0800 02/08/19 clopidogrel 75 mg tablet 75 mg PO DAILY #90 tab 07/16/20 atorvastatin 40 mg tablet 40 mg PO QHS #90 tab 07/17/20 pantoprazole 40 mg tablet,delayed release 40 mg PO BID #180 tab 03/26/21 metoprolol tartrate 25 mg PO BID #60 tab 04/17/21 valsartan 160 mg PO DAILY #30 tab 04/17/21 Hospital Course Operations None Procedures Cardiac catheterization Summary of Care Provided Minutes Spent on Discharge: 25 Hospital Course: Mr. Walters is a 75-year-old white male presented to the emergency department [facility] on 04/16/2021 with a chief complaint of chest pain. He evidently has had increasing exertional chest pain over the last 3 weeks which was midsternal in nature. He had associated shortness of breath and diaphoresis and had previous PCI. He noted that his current symptoms were similar to the symptoms he had with his previous myocardial infarction. His EKG emergency department showed no signs of acute ischemia and his cardiac enzymes were cycled and found to be 10-11-21 respectively. Given his complaints and history cardiology was consulted to see him and elected to take him for left heart catheterization. His left heart catheterization performed on 04/17/2021 demonstrated nonobstructive coronary artery disease. Recommendations for cardiology were up titration of his antihypertensives to include metoprolol being increased to 25 mg p.o. twice daily and an increase in his valsartan from 80mg to 160 mg p.o. daily. He is to continue his high intensity dose statin. A lipid profile was obtained while he was hospitalized and showed a total cholesterol of 132/LDL of 60/an HDL of 49, VLDL of 23. He was discharged home in stable condition on 04/17/2021 with recommended follow-up to his primary care physician next 2 to 4 weeks and cardiology as instructed by Dr. Beach. 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 bedside as he is just returned from his left heart catheterization General Appearance: cooperative, comfortable, well kempt and well developed Orientation / Consciousness: awake Exam Limitations: no limitations Nutritional Appearance: obese HEENT normocephalic, head/scalp atraumatic and moist oral mucous membranes HEENT Narrative: Mildly hard of hearing, Mallampati is 3, no thrush Resp normal respiratory effort, no retractions, no use of accessory muscles and clear to auscultation bilaterally Auscultation: Negative for crackles, rales, rhonchi or wheezes Cardio regular rate, regular rhythm, S1 normal heart sound, S2 normal heart sound, no murmurs, no rub, no gallops, no clicks and no JVD GI normal to inspection, nondistended, normoactive bowel sounds, soft to palpation, non-tender and non-distended; Negative for hepatosplenomegaly Extremity no clubbing, cyanosis or edema Extremity Narrative: 2+ pedal pulses, right radial compression device in place status post left heart catheterization Neuro oriented x3, CN's II-XII intact bilaterally, moves all extremities, no focal motor deficits and no sensory deficits noted Sensorium / Orientation: awake and alert Speech: speech normal Psych affect normal Weight / BMI Weight Weight: 124.738 kg Body Mass Index (BMI) 38.3 ABG / Lab / Microbiology Data Result Diagrams: 04/16/21 13:05 04/16/21 13:05 Laboratory: Laboratory Results - last 24 hr 04/16/21 13:05: WBC 6.2, RBC 5.11, Hgb 15.9, Hct 47.2, MCV 92.4, MCH 31.1, MCHC 33.7, RDW Std Deviation 43.2, RDW Coeff of Hardik 12.7, Plt Count 194, MPV 9.6, Immature Gran % (Auto) 0.200, Neut % (Auto) 76.7 H, Lymph % (Auto) 15.6 L, Phelps % (Auto) 5.7, Eos % (Auto) 1.0, Baso % (Auto) 0.8, Absolute Neuts (auto) 4.7, Absolute Lymphs (auto) 0.96, Nucleated RBC % 0 04/16/21 13:05: Sodium 141, Potassium 3.8, Chloride 107, Carbon Dioxide 30.0, Anion Gap 4 L, BUN 15, Creatinine 1.28, Estim Creat Clear Calc 53.93, Est GFR (MDRD) Af Amer 71, Est GFR (MDRD) Non-Af 58 L, BUN/Creatinine Ratio 11.7, Glucose 118 H, Calcium 8.8, Troponin I High Sens 10 04/16/21 15:00: Troponin I High Sens 11 04/16/21 18:55: Troponin I High Sens 21 04/17/21 04:20: Triglycerides 113, Cholesterol 132, LDL Cholesterol 60, VLDL Cholesterol 23, HDL Cholesterol 49 Radiography Diagnostic Testing: Radiology Impression Chest X-Ray 04/16/21 12:02 IMPRESSION: No acute abnormality is seen. Electronically Signed: Pierre Lin MD at 12:23 EST Reading Location ID and State: [address] [place] [address] , Service support , D/C Instructions Discharge Diet: Low fat / Low cholesterol Discharge Activity: Return to Normal Activity Meaningful Use Info Meaningful Use Diagnoses (Choose all that apply): None applicable Discharge Plan Admission Admit Date/Time: 04/16/21 16:35 Primary Reason for Your Visit: Chest pain Attending Provider: Lisa Jerry Primary Care Provider: Roxi Benedict NP Discharge Orders/Prescriptions Prescriptions: New metoprolol tartrate 25 mg Tablet 25 mg PO BID Qty: 60 RF: 0 valsartan 160 mg tablet 160 mg PO DAILY Qty: 30 RF: 0 Discontinued valsartan 80 mg tablet 80 mg PO DAILY Qty: 90 RF: 3 metoprolol tartrate 25 mg tablet 12.5 mg PO BID Qty: 90 RF: 3 No Action aspirin 81 MG tablet,chewable 81 mg PO DAILY@0800 RF: 0 clopidogrel 75 mg tablet 75 mg PO DAILY Qty: 90 RF: 3 atorvastatin 40 mg tablet 40 mg PO QHS Qty: 90 RF: 3 pantoprazole 40 mg tablet,delayed release (DR/EC) 40 mg PO BID Qty: 180 RF: 3 Referrals / Follow Up: Butch Beach MD [STAFF PHYSICIAN] - Within 2 Weeks Roxi Benedict NP, COMBIN[employer] MACHINE TOOL OPERATOR-C [Primary Care Provider] - Within 2 Weeks Disposition Disposition (needs filled in before D/C Order can be placed): Home, Self Care Charges/Coding Visit Charges Inpatient E&M: 96614 Disch Hosp
== END 2021-04-17 09:33 | disposition home or self-care (01) ==
LOC: ED 13:13 → PCU 18:03
PROVIDERS: Emergency Provider Physician Assistant; PCP Nurse Practitioner Family; Visit Provider Internal Medicine
DX: R07.89 Other chest pain (principal); N18.31 Chronic kidney disease, stage 3a; I12.9 Hypertensive chronic kidney disease with stage 1 through stage 4 chronic kidney disease, or unspecified chronic kidney disease; I25.10 Atherosclerotic heart disease of native coronary artery without angina pectoris; E66.9 Obesity, unspecified; K21.9 Gastro-esophageal reflux disease without esophagitis; E78.5 Hyperlipidemia, unspecified; I27.29 Other secondary pulmonary hypertension; G47.33 Obstructive sleep apnea (adult) (pediatric); Z79.02 Long term (current) use of antithrombotics/antiplatelets; Z79.82 Long term (current) use of aspirin; Z87.891 Personal history of nicotine dependence; Z79.899 Other long term (current) drug therapy; Z68.38 Body mass index [BMI] 38.0-38.9, adult
CPT/HCPCS: 36415; 71045; 80048; 80061; 84484; 85025; 93005; 93458; 99152; 99153; 99218; 99285; J7030; J7040; Q9967; A4216; C1769; C1894; G0378

== ENCOUNTER → 2023-01-24 | Outpatient (CLI) | payer MEDICARE, SELFPAY ==
[2023-01-24 12:03] LABS: AST(SGOT) 11 U/L (15-37); Alanine Aminotransfer ALT/SGPT 17 U/L (16-61); Albumin, Serum 3.4 g/dL (3.2-5.0); Alkaline Phosphatase 70 U/L (45-117); Anion Gap 4 (5-15); BUN 10 mg/dL (7-18); BUN/Creat Ratio 8.6 RATIO (10-20); Bilirubin, Direct 0.18 mg/dL (0.00-0.30); Calcium,Total 8.5 mg/dL (8.5-10.1); Chloride 110 mmol/L (98-107); Cholesterol 149 mg/dL (200); Creatinine, Serum 1.16 mg/dL (0.70-1.30); EST Glomerular Filtration Rate 65 mL/min (>60); Est Glom Filt Rate - Afr Amer 79 mL/min (>60); Globulin 3.2 g/dL (2.2-4.2); Glucose 95 mg/dL (74-106); High Density Lipoprotein 53 mg/dL; Potassium 4.1 mmol/L (3.5-5.1); Protein, Total 6.6 g/dL (6.4-8.2); Sodium Level 145 mmol/L (136-145); Triglycerides 96 mg/dL; Very Low Density Lipoprotein 19 mg/dL (5-40)
== END | disposition home or self-care (01) ==
LOC: LAB 10:28
PROVIDERS: PCP Nurse Practitioner Family; Visit Provider Nurse Practitioner Family
DX: I25.118 Atherosclerotic heart disease of native coronary artery with other forms of angina pectoris (principal); I10 Essential (primary) hypertension
CPT/HCPCS: 36415; 80048; 80061; 80076

== ENCOUNTER → 2023-02-11 | Outpatient (CLI) | payer MEDICARE, SELFPAY ==
--- OUTSIDE RECORDS SUMMARY | 2023-02-11 08:53 | XMS RPT_ITS | CCD ---
Author Name Unknown Address [address] [place] [address] Organization [facility] Care Team Providers Care Manager [employer] Name Role Phone SELMA EL Unavailable Unavailable Josué Fernandez MD Unavailable [employer] S[employer] COORDINATOR.Quinton MUNOZ Primary Care Provider Josué Fernandez MD Unavailable [employer]ill HIGH SCHOOL COORDINATOR.Quinton MUNOZ Primary Care Provider QUINTON CALDWELL Primary Care Unavailable QUINTON CALDWELL Attending Unavailable QUINTON CALDWELL Primary Care Unavailable MARYLOU COVARRUBIAS Attending Unavailable QUINTON CALDWELL Primary Care Unavailable QUINTON CALDWELL Primary Care Unavailable Allergies Allergy Classification Reported Allergen(s) Allergy Type Date of Onset Reaction(s) Facility (7 sources) Sulfonamides (Antibiotic); Translations: [SULFA (SULFONAMIDE ANTIBIOTICS)] Propensity to adverse reactions to drug (disorder) 7 Unknown [facility] Other [facility] Repository Medications Current Medications Medication Drug Class(es) Dates Sig (Normalized) Sig (Original) amoxicillin 875 mg / clavulanate 125 mg oral tablet (1 source) Penicillin-class Antibacterial Start: 10-17-2022 End: 10-24-2022 take 1 tablet by mouth twice daily amoxicillin-clav ulanic acid (AUGMENTIN) 875-125 mg per tablet Take 1 tablet by mouth twice daily for 7 days. 14 tablet 0 10/17/2022 10/24/2022 Active Completed/Discontinued Medications Medication Drug Class(es) Dates Sig (Normalized) Sig (Original) [id number] 200 actuat albuterol 0.09 mg/actuat metered dose inhaler (7 sources) beta2-Adrenergic Agonist Start: 07-19-2022 take 2 puff(s) by inhalation every four hours as needed for wheezing albuterol HFA (PROVENTIL HFA, VENTOLIN HFA) 90 mcg/actuation inhaler Indications: Wheezing Inhale 2 Puffs as instructed every 4 hours as needed for wheezing/shortnes s of breath. 1 Each 0 07/19/2022 Active Problems Active Problems Problem Classification Problem Date Documented Da te Episodic/Chronic Anal and rectal conditions (5 sources) Rectal cellulitis; Translations: [Rectal abscess] Onset: 3 10-22-2022 Episodic Anxiety disorders (5 sources) Anxiety; Translations: [Anxiety disorder, unspecified] Onset: 9 05-16-2018 Chronic Chronic kidney disease (5 sources) Chronic kidney disease stage 3; Translations: [Chronic kidney disease, stage 3 unspecified] Onset: 1 06-23-2020 Chronic Coronary atherosclerosis and other heart disease (10 sources) Coronary atherosclerosis; Translations: [Atherosclerotic heart disease of [place] coronary artery without angina pectoris] Onset: 6 05-16-2018 Chronic Disorders of lipid metabolism (5 sources) Hyperlipidemia; Translations: [Hyperlipidemia, unspecified] Onset: 6 05-16-2018 Chronic Esophageal disorders (5 sources) Gastroesophageal reflux disease; Translations: [Gastro-esophageal reflux disease without esophagitis] 05-16-2018 Chronic Genitourinary symptoms and ill-defined conditions (1 source) Increased frequency of urination; Translations: [Frequency of micturition] Episodic Heart valve disorders (5 sources) Aortic incompetence, non-rheumatic ; Translations: [Nonrheumatic aortic (valve) insufficiency] Onset: 0 03-19-2019 Chronic Hyperplasia of prostate (5 sources) Benign prostatic hyperplasia; Translations: [Benign prostatic hyperplasia without lower urinary tract symptoms] 05-16-2018 Chronic Mood disorders (10 sources) Major depression, single episode; Translations: [Major depressive disorder, single episode, unspecified] Onset: 6 05-16-2018 Chronic Other diseases of kidney and ureters (1 source) Renal mass; Translations: [Other specified disorders of kidney and ureter] 10-22-2022 Chronic Other diseases of kidney and ureters (1 source) Other specified disorders of kidney and ureter; Translations: [Left renal mass] Onset: 3 Chronic Other gastrointestinal disorders (5 sources) Irritable bowel syndrome; Translations: [Irritable bowel syndrome without diarrhea] 05-16-2018 Chronic Other gastrointestinal disorders (1 source) Diarrhea, unspecified; Translations: [Diarrhea, unspecified type] Onset: 3 Episodic Other injuries and conditions due to external causes (1 source) Unspecified foreign body in esophagus causing other injury, initial encounter; Translations: [Unspecified foreign body in esophagus causing other injury, initial encounter] Onset: 7 Other lower respiratory disease (1 source) Wheezing; Translations: [Wheezing] Episodic Other nutritional; endocrine; and metabolic disorders (5 sources) Obese class II; Translations: [Obesity, unspecified] Onset: 0 04-30-2021 Chronic Other nutritional; endocrine; and metabolic disorders (5 sources) Body mass index 30+ - obesity; Translations: [Body mass index (BMI) 38.0-38.9, adult] Onset: 2 04-30-2021 Chronic Vaishali-; endo-; and myocarditis; cardiomyopathy (except that caused by tuberculosis or sexually transmitted disease) (5 sources) Rheumatic heart disease; Translations: [Rheumatic heart disease, unspecified] Onset: 9 03-19-2019 Chronic Pulmonary heart disease (5 sources) Pulmonary arterial hypertension; Translations: [Secondary pulmonary arterial hypertension] Onset: 0 03-19-2019 Chronic Residual codes; unclassified (5 sources) Obstructive sleep apnea syndrome; Translations: [Obstructive sleep apnea (adult) (pediatric)] Onset: 8 03-19-2019 Chronic Past or Other Problems Problem Classification Problem Date Documented Da te Episodic/Chronic Coronary atherosclerosis and other heart disease (5 sources) History of cardiovascular surgery; Translations: [Presence of coronary angioplasty implant and graft] Onset: 09-04-2015 05-16-2018 Episodic Other lower respiratory disease (1 source) Wheezing; Translations: [Wheezing] Onset: 07-19-2022 Episodic Other upper respiratory infections (3 sources) Acute upper respiratory infection; Translations: [Acute upper respiratory infection, unspecified] Onset: 07-19-2022 Episodic Screening and history of mental health and substance abuse codes (5 sources) H/O: drug dependency; Translations: [Personal history of nicotine dependence] Onset: 09-04-2015 05-16-2018 Episodic Results Test Name Value Interpretation Reference Range Facil ity Vital Signs Date Time Vital Sign Value Performing Clinician Marina ortiz 10-22-2022 15:24-0400 Body height 177.8 cm Marylou Queden HIGH SCHOOL COORDINATOR.ROOM CLEANER Work Phone: [facility] 10-22-2022 15:24-0400 Body temperature 98.29 [degF] Marylou Queden HIGH SCHOOL COORDINATOR.ROOM CLEANER Work Phone: [facility] 10-22-2022 15:24-0400 Body weight 110.68 kg Marylou Queden HIGH SCHOOL COORDINATOR.ROOM CLEANER Work Phone: [facility] 10-22-2022 15:24-0400 Diastolic blood pressure 68 mm[Hg] Marylou Queden HIGH SCHOOL COORDINATOR.ROOM CLEANER Work Phone: [facility] 10-22-2022 15:24-0400 Heart rate 65 /min Marylou Queden HIGH SCHOOL COORDINATOR.ROOM CLEANER Work Phone: [facility] 10-22-2022 15:24-0400 Respiratory rate 18 /min Marylou Queden HIGH SCHOOL COORDINATOR.ROOM CLEANER Work Phone: [facility] 10-22-2022 15:24-0400 SaO2% (BldA) [Mass fraction] 99 % Marylou Queden HIGH SCHOOL COORDINATOR.ROOM CLEANER Work Phone: [facility] 10-22-2022 15:24-0400 Systolic blood pressure 126 mm[Hg] Marylou Queden HIGH SCHOOL COORDINATOR.ROOM CLEANER Work Phone: [facility] 07-19-2022 10:06-0400 Diastolic blood pressure 58 mm[Hg] Quinton Trill HIGH SCHOOL COORDINATOR.ROOM CLEANER Work Phone: [facility] 07-19-2022 10:06-0400 Systolic blood pressure 122 mm[Hg] Quinton Trill HIGH SCHOOL COORDINATOR.ROOM CLEANER Work Phone: [facility] 07-19-2022 09:50-0400 Body height 177.8 cm Quinton Trill HIGH SCHOOL COORDINATOR.ROOM CLEANER Work Phone: [facility] 07-19-2022 09:50-0400 Body temperature 98.1 [degF] Quinton Caldwell HIGH SCHOOL COORDINATOR.ROOM CLEANER Work Phone: [facility] 07-19-2022 09:50-0400 Body weight 116.12 kg Quinton Caldwell HIGH SCHOOL COORDINATOR.ROOM CLEANER Work Phone: [facility] 07-19-2022 09:50-0400 Heart rate 45 /min Quinton Caldwell HIGH SCHOOL COORDINATOR.ROOM CLEANER Work Phone: [facility] 07-19-2022 09:50-0400 SaO2% (BldA) [Mass fraction] 95 % Quinton Caldwell HIGH SCHOOL COORDINATOR.ROOM CLEANER Work Phone: [facility] 05-14-2021 11:16-0400 Body height 177.8 cm Brenda Barton MD Work Phone: [facility] 05-14-2021 11:16-0400 Body temperature 98.4 [degF] Brenda Barton MD Work Phone: [facility] 05-14-2021 11:16-0400 Diastolic blood pressure 64 mm[Hg] Brenda Barton MD Work Phone: [facility] 05-14-2021 11:16-0400 Heart rate 66 /min Brenda Barton MD Work Phone: [facility] 05-14-2021 11:16-0400 Respiratory rate 18 /min Brenda Barton MD Work Phone: [facility] 05-14-2021 11:16-0400 SaO2% (BldA) [Mass fraction] 97 % Brenda Barton MD Work Phone: [facility] 05-14-2021 11:16-0400 Systolic blood pressure 126 mm[Hg] Brenda Barton MD Work Phone: [facility] Encounters Encounter Date Encounter Type Care Provider Facility Start: 12-10-2022 ambulatory Sulema Garcia RN [facility] Start: 12-10-2022 Patient encounter procedure Sulema Garcia RN [facility] Date Procedure Procedure Detail Performing Clinician Start: 05-14-2021 Urnls dip stick/tabl et rgnt auto w/o microscopy Brenda Barton MD Work Phone: Plan of Treatment Date Care Activity Detail Author Start: 10-17-2025 DIABETES SCREEN DIABETES SCREEN [facility] Start: 10-17-2025 Diabetes Screening Diabetes Screenin g [facility] Start: 10-23-2023 ANNUAL PCP TEAM BULB ASSEMBLER CHANG DISEASE VISIT ANNUAL PCP TEAM CHRONIC DISEASE VISIT [facility] Start: 10-18-2023 SERUM CREATININE SERUM CREATININE Cl [facility] Start: 07-20-2023 ANNUAL PCP TEAM BULB ASSEMBLER CHANG DISEASE VISIT ANNUAL PCP TEAM CHRONIC DISEASE VISIT [facility] Start: 07-20-2023 COVID-19 VACCINE (4 - Booster for Moderna series) COVID-19 VACCINE (4 - Booster for Moderna series) [facility] Immunizations Immunization Date Immunization Notes Care Provider Fa [facility] 07-03-2020 COVID-19 vaccine, fu ll dose (MODERNA) Quinton Caldwell HIGH SCHOOL COORDINATOR.ROOM CLEANER Work Phone: [facility] 06-05-2020 COVID-19 vaccine, fu ll dose (MODERNA) Quinton Caldwell HIGH SCHOOL COORDINATOR.ROOM CLEANER Work Phone: [facility] Payers Date Payer Category Payer Unknown ANTHEM BLUE CR[employer] S AND BLUE SHIELD ANTHEM MEDIBLUE O [id number] 2021-Present [phone] [id number] O [id number] 2021 Unknown ANTHEM [employer] CR[employer] S AND BLUE SHIELD ANTHEM MEDIBLUE O [id number] 2021-Present [phone] [address] [place] [id number] O [id number] 2021 Unknown [id number] Social History Date Type Detail Facility Start: 05-16-2018 Tobacco smoking stat us NHIS Ex-smoker [facility] End: 02-14-1999 History of tobacco use Current smoker [facility] Start: 05-16-2018 Tobacco use and exposure User of smokeless tobacco [facility] History of tobacco use Snuff User [facility] Start: 04-30-2021 End: 10-22-2022 Alcohol intake Current non-drinker of alcohol (finding) [facility] Start: 1945 Sex Assigned At Not on file [facility] Start: 04-19-2021 End: 05-14-2021 Exposure to SARS-CoV-2 (event) Not sure [facility] Start: 01-20-2020 End: 10-22-2022 History of Social function [facility] Start: 01-20-2020 End: 10-22-2022 Tobacco use panel [facility] Adult Depression Scr eening Assessment 0 [facility] Clinical Notes 05-06-2021 to 12-15-2022 Malika Culp MA - 12/10/2022 3:48 PM Quinton Lopez APRN.CNP - 12/10/2022 1:41 PM Sulema Fleming - 12/10/2022 1:14 PM EDTPatient InstructionsPatient Instructions Note Date & Type Note Facility 12-15-2022 Note HNO ID: [id number] Author: Makenzie Hemphill MA Service: ? Author Type: Bell Captain Type: Progress Notes Filed: 12/15/2022 1:29 PM Note Text: Faxed over medical record request to dr haque at [phone]. Makenzie Hemphill MA [facility] 12-15-2022 Note HNO ID: [id number] Author: Quinton Caldwell APRN.CNP Service: ? Author Type: Nurse Practitioner Type: Progress Notes Filed: 12/15/2022 12:38 PM Note Text: Last 2 office notes. Quinton Caldwell APRN.CNP [facility] 12-15-2022 Note HNO ID: [id number] Author: Smita Ramachandran MA Service: ? Author Type: Bell Captain Type: Progress Notes Filed: 12/15/2022 10:35 AM Note Text: Spoke with patient and his urologist is Dr. Haque in [place], how many records would you like. Please advise. Smita Ramachandran MA [facility] 12-15-2022 Note HNO ID: [id number] Author: Makenzie Hemphill MA Service: ? Author Type: Bell Captain Type: Progress Notes Filed: 12/15/2022 10:04 AM Note Text: Patient will call back with name of the doctor . Makenzie Hemphill MA [facility] 12-10-2022 Note HNO ID: [id number] Author: Malika Culp MA Service: ? Author Type: Bell Captain Type: Progress Notes Filed: 12/10/2022 3:48 PM Note Text: Left a message for patient to call back Malika Culp MA [facility] 12-10-2022 History of Presen t illness Narrative Left a message for patient to call back Malika Culp MA Patient was referred to a urologist in October - Please call patient and see if he's seen a urologist yet. I think he may have been going to one outside of [facility]. If he's seeing outside urologist please get name and request records Thank you. Quinton Caldwell APRN.ALEXANDER Actionable Finding Review. This patient showed up on the actionable finding registry with a potentially abnormal CT abd/pel and I am tasked to assist with this for the [place]. Report: 2.3 cm partially exophytic left renal solid mass, most suspicious for renal cell carcinoma. Urological consultation recommended If you agree this is needed, could you/your office please address? If you feel through shared medical decision making this is / is not needed, please let us know. If / when you feel this is seen to completion, please let me know and I will close this out of the registry. Thank you. Sulema Garcia December 10, 2022 1:14 PM documented in this encounter [facility] 12-10-2022 Note HNO ID: [id number] Author: Quinton Caldwell APRN.ROOM CLEANER Service: ? Author Type: Nurse Practitioner Type: Progress Notes Filed: 12/10/2022 1:42 PM Note Text: Patient was referred to a urologist in October - Please call patient and see if he's seen a urologist yet. I think he may have been going to one outside of [facility]. If he's seeing outside urologist please get name and request records Thank you. Quinton Caldwell APRN.ROOM CLEANER [facility] 12-10-2022 Note HNO ID: [id number] Author: Sulema Garcia Service: ? Author Type: ? Type: Progress Notes Filed: 12/10/2022 1:39 PM Note Text: Actionable Finding Review. This patient showed up on the actionable finding registry with a potentially abnormal CT abd/pel and I am tasked to assist with this for the [place]. Report: 2.3 cm partially exophytic left renal solid mass, most suspicious for renal cell carcinoma. Urological consultation recommended If you agree this is needed, could you/your office please address? If you feel through shared medical decision making this is / is not needed, please let us know. If / when you feel this is seen to completion, please let me know and I will close this out of the registry. Thank you. Sulema Garcia December 10, 2022 1:14 PM [facility] 12-10-2022 Note Patient Outreach (GL Q) DUNCAN WALTERS ([id number]) 1945 M TXT Date Time Provider Department 12/10/22 SULEMA GARCIA GLQ During your visit today, we recorded the following information about you: Sulema Garcia 12/10/2022 1:39 PM Signed Actionable Finding Review. This patient showed up on the actionable finding registry with a potentially abnormal CT abd/pel and I am tasked to assist with this for the [place]. Report: 2.3 cm partially exophytic left renal solid mass, most suspicious for renal cell carcinoma. Urological consultation recommended If you agree this is needed, could you/your office please address? If you feel through shared medical decision making this is / is not needed, please let us know. If / when you feel this is seen to completion, please let me know and I will close this out of the registry. Thank you. Sulema Garcia December 10, 2022 1:14 PM Quinton Caldwell APRN.ROOM CLEANER 12/10/2022 1:42 PM Signed Patient was referred to a urologist in October - Please call patient and see if he's seen a urologist yet. I think he may have been going to one outside of [facility]. If he's seeing outside urologist please get name and request records Thank you. Quinton Caldwell APRN.Malika Giron MA 12/10/2022 3:48 PM Signed Left a message for patient to call back VIJAY Perez Mary, MA 12/15/2022 10:04 AM Signed Patient will call back with name of the doctor . VIJAY Lindsey Janie, MA 12/15/2022 10:35 AM Signed Spoke with patient and his urologist is Dr. Haque in [place], how many records would you like. Please advise. VIJAY Holley Kristin C, APRN.ALEXANDER 12/15/2022 12:38 PM Signed Last 2 office notes. Quinton Caldwell APRN.Makenzie Bermudez MA 12/15/2022 1:29 PM Signed Faxed over medical record request to dr haque at [phone]. Makenzie Hemphill MA Allergies As of Date: 12/10/2022 Noted Allergy Reaction SULFA (SULFONAMIDE ANTIBIOTICS) 08/24/2016 16 - Unknown Date Reviewed: 10/22/2022 Reviewed by: Marylou Covarrubias APRN.ROOM CLEANER - Fully Assessed Reason for Visit: Clinical Update [1735] Prescriptions as of 12/15/2022 - albuterol HFA (PROVENTIL HFA, VENTOLIN HFA) 90 mcg/actuation inhaler Inhale 2 Puffs as instructed every 4 hours as needed for wheezing/shortness of breath. - fluticasone (FLONASE ALLERGY RELIEF) 50 mcg/actuation nasal spray Use 2 Sprays in each nostril once daily. - metoprolol tartrate, short acting, (LOPRESSOR) 25 mg tablet Take 25 mg by mouth twice daily. - valsartan (DIOVAN) 80 mg tablet Take 160 mg by mouth once daily. - clopidogrel (PLAVIX) 75 mg tablet Take 75 mg by mouth once daily. - atorvastatin (LIPITOR) 40 mg tablet Take 40 mg by mouth daily at bedtime. - aspirin, enteric coated (ASPIRIN, ENTERIC COATED) 81 mg EC tablet Take 81 mg by mouth once daily. - pantoprazole DR (PROTONIX) 40 mg tablet Take 1 tablet by mouth twice daily. Problem List As Of Date 12/10/2022 Noted Resolved Atherosclerotic heart disease of [place] coronar*09/04/2015 Hyperlipidemia, unspecified [E78.5] 09/04/2015 Major depressive disorder, single episode, unsp*09/04/2015 Presence of coronary angioplasty implant and gr*09/04/2015 Personal history of nicotine dependence [Z87.89*09/04/2015 Anxiety [F41.9] 05/16/2018 BPH (benign prostatic hyperplasia) [N40.0] GERD (gastroesophageal reflux disease) [K21.9] Irritable bowel disease [K58.9] Obstructive sleep apnea (adult) (pediatric) [G4*07/27/2017 Nonrheumatic aortic valve insufficiency [I35.1] 03/19/2019 Pulmonary arterial hypertension (HCC) [I27.21] 03/19/2019 Rheumatic heart disease [I09.9] 06/02/2018 Stable angina pectoris (HCC) [I20.89] 03/19/2019 Recurrent major depressive disorder, in full re*03/19/2019 Obesity, Class II, BMI 35-39.9 [E66.9] 03/19/2019 Chronic kidney disease, stage 3 unspecified (HC*06/23/2020 BMI 38.0-38.9,adult [Z68.38] 04/30/2021 Encounter Status:Closed by GARCIASULEMA on 12/10/22 [facility] 10-22-2022 Note HNO ID: [id number] Author: Marylou Covarrubias APRN.ROOM CLEANER Service: ? Author Type: Nurse Practitioner Type: Progress Notes Filed: 10/24/2022 6:18 PM Note Text: [place] [id number] Visit Date: 10/22/2022 Patient Name: Duncan Walters Date of : 1945 Chief Complaint: ER Follow Up Duncan Walters is a 77 year old male here today for a follow up to a recent emergency room (ER) visit. Emergency Room Location: [facility] Copied from ER note on 10/17/22: 77-year-old male patient presents the emergency room with complaints of a rectal fullness and pain increasing over the past 5 days. Patient also admits to subjective chills, and was concerned he had a fever. Groin, external rectal examination without any obvious abnormalities. Urinalysis without any evidence of infection, there is no tenderness directly over the prostate likely ruling out this. Fecal occult blood negative. There is no external abnormalities as above, however there is some tenderness, fullness in the 9 o'clock position of undetermined etiology. This, coupled with patient's subjective chills, concern for possible underlying abscess, mass, or other. Laboratory studies were completed on patient, and he has no significant leukocytosis. Patient is afebrile in the emergency department. Electrolytes demonstrate a mild hyponatremia, which patient has had before. CBC a very mild thrombocytopenia as well. CT abdomen pelvis, with contrast, demonstrated some thickening, infiltration of the bilateral gluteal folds, subcutaneous tissue, consistent with probably likely cellulitis. There is no discrete fluid collection to suggest an underlying abscess with the above, I have started patient on oral broad-spectrum antibiotics, and I am discharging him home with the same. I have given patient lengthy discharge instructions, if his condition worsens, or fails to improve, he needs to be seen reevaluated for the possibility of a worsening infection, deep space abscess or other. I am comfortable with patient going home based on his work-up in the emergency department today. Also is incidental note of a left solid renal mass, which patient was informed of. Patient was informed that possibly this could be cancer, he needs to see specialist follow-up for this as well. HPI: Patient states he is feeling better overall but still has some aching pain near his rectum. He has been taking his antibiotic as prescribed and notes having some softer stools since then. He denies any fevers, chills, body aches. He follows with Dr. Cochran with [facility] and had a colonoscopy last year. He has been seen by a urologist in [place] in the past for BPH. He is not any medication for this. Vitals BP 126/68 Pulse 65 Temp 98.3 Resp 18 Ht 5' 10 (1.78m) Wt 244 lb (110.7kg) SpO2 99% BMI 35.01 kg/(m2). PAST MEDICAL HISTORY Diagnosis Date Allergic rhinitis Anxiety BPH (benign prostatic hyperplasia) Coronary artery disease Esophageal stricture GERD (gastroesophageal reflux disease) H/O heart artery stent 1999 1999, 2005, 2018 Heart failure (HCC) Irritable bowel disease PAST SURGICAL HISTORY Procedure Laterality Date CARDIAC CATHETERIZATION HX HEART SURGERY HX 2005 2 stents HERNIA REPAIR HX PROSTATE SURGERY HX 2009 prostate reduction FAMILY HISTORY Adopted: Yes Social History Tobacco Use Smoking status: Former Smokeless tobacco: Current Types: Snuff Vaping Use Vaping Use: Never used Substance Use Topics Alcohol use: No Drug use: No Current Meds amoxicillin-clavulanic acid (AUGMENTIN) 875-125 mg per tablet Take 1 tablet by mouth twice daily for 7 days. albuterol HFA (PROVENTIL HFA, VENTOLIN HFA) 90 mcg/actuation inhaler Inhale 2 Puffs as instructed every 4 hours as needed for wheezing/shortness of breath. fluticasone (FLONASE ALLERGY RELIEF) 50 mcg/actuation nasal spray Use 2 Sprays in each nostril once daily. metoprolol tartrate, short acting, (LOPRESSOR) 25 mg tablet Take 25 mg by mouth twice daily. valsartan (DIOVAN) 80 mg tablet Take 160 mg by mouth once daily. clopidogrel (PLAVIX) 75 mg tablet Take 75 mg by mouth once daily. atorvastatin (LIPITOR) 40 mg tablet Take 40 mg by mouth daily at bedtime. aspirin, enteric coated (ASPIRIN, ENTERIC COATED) 81 mg EC tablet Take 81 mg by mouth once daily. pantoprazole DR (PROTONIX) 40 mg tablet Take 1 tablet by mouth twice daily. I have confirmed and edited as necessary the chief complaint, medications, past medical, family and social histories obtained by others. Review of Systems Constitutional: Negative for appetite change, chills, diaphoresis, fatigue, fever and unexpected weight change. Respiratory: Negative. Cardiovascular: Negative. Gastrointestinal: Positive for diarrhea (soft stools) and vomiting (once). (more content not included)... [facility] 10-22-2022 Instructions Marylou Covarrubias APRN.CNP - 10/22/2022 3:40 PM EDT PRACTICE: [facility] ADDRESS: [address] [place] [address], [address] [place] [address] PHONE NUMBER: Call Dr. Cochran office for follow up for rectal cellulitis and pain Probiotics: Elizabeth Ayala documented in this encounter [facility] 10-22-2022 History of Presen t illness Narrative Images from the original [place] [address] Visit Date: 10/22/2022 Patient Name: Duncan Walters Date of : 1945 Chief Complaint: ER Follow Up Duncan Walters is a 77 year old male here today for a follow up to a recent emergency room (ER) visit. Emergency Room Location: [facility] Copied from ER note on 10/17/22: 77-year-old male patient presents the emergency room with complaints of a rectal fullness and pain increasing over the past 5 days. Patient also admits to subjective chills, and was concerned he had a fever. Groin, external rectal examination without any obvious abnormalities. Urinalysis without any evidence of infection, there is no tenderness directly over the prostate likely ruling out this. Fecal occult blood negative. There is no external abnormalities as above, however there is some tenderness, fullness in the 9 o'clock position of undetermined etiology. This, coupled with patient's subjective chills, concern for possible underlying abscess, mass, or other. Laboratory studies were completed on patient, and he has no significant leukocytosis. Patient is afebrile in the emergency department. Electrolytes demonstrate a mild hyponatremia, which patient has had before. CBC a very mild thrombocytopenia as well. CT abdomen pelvis, with contrast, demonstrated some thickening, infiltration of the bilateral gluteal folds, subcutaneous tissue, consistent with probably likely cellulitis. There is no discrete fluid collection to suggest an underlying abscess with the above, I have started patient on oral broad-spectrum antibiotics, and I am discharging him home with the same. I have given patient lengthy discharge instructions, if his condition worsens, or fails to improve, he needs to be seen reevaluated for the possibility of a worsening infection, deep space abscess or other. I am comfortable with patient going home based on his work-up in the emergency department today. Also is incidental note of a left solid renal mass, which patient was informed of. Patient was informed that possibly this could be cancer, he needs to see specialist follow-up for this as well. HPI: Patient states he is feeling better overall but still has some aching pain near his rectum. He has been taking his antibiotic as prescribed and notes having some softer stools since then. He denies any fevers, chills, body aches. He follows with Dr. Cochran with [facility] and had a colonoscopy last year. He has been seen by a urologist in [place] in the past for BPH. He is not any medication for this. Vitals BP 126/68 Pulse 65 Temp 98.3 Resp 18 Ht 5' 10 (1.78m) Wt 244 lb (110.7kg) SpO2 99% BMI 35.01 kg/(m^2). PAST MEDICAL HISTORY Diagnosis Date Allergic rhinitis Anxiety BPH (benign prostatic hyperplasia) Coronary artery disease Esophageal stricture GERD (gastroesophageal reflux disease) H/O heart artery stent 1999 1999, 2005, 2018 Heart failure (HCC) Irritable bowel disease PAST SURGICAL HISTORY Procedure Laterality Date CARDIAC CATHETERIZATION HX HEART SURGERY HX 2006 2 stents HERNIA REPAIR HX PROSTATE SURGERY HX 2010 prostate reduction FAMILY HISTORY Adopted: Yes Social History Tobacco Use Smoking status: Former Smokeless tobacco: Current Types: Snuff Vaping Use Vaping Use: Never used Substance Use Topics Alcohol use: No Drug use: No Current Meds amoxicillin-clavulanic acid (AUGMENTIN) 875-125 mg per tablet Take 1 tablet by mouth twice daily for 7 days. albuterol HFA (PROVENTIL HFA, VENTOLIN HFA) 90 mcg/actuation inhaler Inhale 2 Puffs as instructed every 4 hours as needed for wheezing/shortness of breath. fluticasone (FLONASE ALLERGY RELIEF) 50 mcg/actuation nasal spray Use 2 Sprays in each nostril once daily. metoprolol tartrate, short acting, (LOPRESSOR) 25 mg tablet Take 25 mg by mouth twice daily. valsartan (DIOVAN) 80 mg tablet Take 160 mg by mouth once daily. clopidogrel (PLAVIX) 75 mg tablet Take 75 mg by mouth once daily. atorvastatin (LIPITOR) 40 mg tablet Take 40 mg by mouth daily at bedtime. aspirin, enteric coated (ASPIRIN, ENTERIC COATED) 81 mg EC tablet Take 81 mg by mouth once daily. pantoprazole DR (PROTONIX) 40 mg tablet Take 1 tablet by mouth twice daily. I have confirmed and edited as necessary the chief complaint, medications, past medical, family and social histories obtained by others. Review of Systems Constitutional: Negative for appetite change, chills, diaphoresis, fatigue, fever and unexpected weight change. Respiratory: Negative. Cardiovascular: Negative. Gastrointestinal: Positive for diarrhea (soft stools) and vomiting (once). Negative for abdominal distention, abdominal pain, anal bleeding, blood in stool, constipation, nausea and rectal pain. Genitourinary: Negative for decreased urine volume, difficulty urinating, dysuria, frequency, hematuria, penile swelling, scrotal swelling and urgency. Musculoskeletal: Negative. Skin: Negative for color change and wound. Neurological: Negative for dizziness, light-headedness and headaches. Physical Exam Vitals and nursing note reviewed. Constitutional: General: He is not in acute distress. Appearance: He is obese. He is not ill-appearing. HENT: Mouth/Throat: Mouth: Mucous membranes are moist. Eyes: Pupils: Pupils are equal, round, and reactive to light. Cardiovascular: Rate and Rhythm: Normal rate and regular rhythm. Heart sounds: Normal heart sounds. Pulmonary: Effort: Pulmonary effort is normal. Breath sounds: Normal breath sounds. Abdominal: General: Bowel sounds are normal. There is no distension. Palpations: Abdomen is soft. Tenderness: There is no abdominal tenderness. Skin: General: Skin is warm and dry. Findings: No erythema or rash. Neurological: Mental Status: He is alert. Psychiatric: Mood and Affect: Mood normal. Speech: Speech normal. Behavior: Behavior normal. Data Reviewed: Most recent labs and imaging results. Component Latest Ref Rng & Units 10/17/2022 Color Yellow Dark Yellow (A) Clarity Clear Clear Glucose, Urine Negative Negative Bilirubin, Urine Negative 1+ (A) Ketones, Urine Negative Negative Specific [place], Ur 1.005 - 1.030 >=1.030 (H) Hemoglobin/Blood,Ur Negative Trace (A) pH, Urine 5.0 - 8.0 5.5 Protein, Urine Negative 2+ (A) Urobilinogen 0.2-1.0 EU/dL 0.2 EU/dL Nitrites Negative Negative Leukest Negative Negative WBC, Urine 0-5 /HPF 0-5 /HPF RBC, Urine 0-3 /HPF 0-3 /HPF Epithelial Cells /HPF Few Glucose 74 - 99 mg/dL 113 (H) BUN 9 - 24 mg/dL 10 Creatinine 0.73 - 1.22 mg/dL 1.18 Sodium 136 - 144 mmol/L 146 (H) Potassium 3.7 - 5.1 mmol/L 3.7 Chloride 97 - 105 mmol/L 109 (H) CO2 22 - 30 mmol/L 26 Anion Gap 9 - 18 mmol/L 11 Calcium 8.5 - 10.2 mg/dL 8.9 eGFR >=60 mL/min/1.73m 64 WBC 3.70 - 11.00 k/uL 4.87 RBC 4.20 - 6.00 m/uL 5.01 Hemoglobin 13.0 - 17.0 g/dL 15.4 Hematocrit 39.0 - 51.0 % 46.0 MCV 80.0 - 100.0 fL 91.8 MCH 26.0 - 34.0 pg 30.7 MCHC 30.5 - 36.0 g/dL 33.5 RDW-CV 11.5 - 15.0 % 12.6 Platelet Count 150 - 400 k/uL 141 (L) MPV 9.0 - 12.7 fL 9.8 Occult Blood, Stool Negative Negative IMPRESSION: Mild skin thickening and subcutaneous infiltration involving the medial gluteal regions bilaterally, which may represent cellulitis. No discrete abscess. 2.3 cm partially exophytic left renal solid mass, most suspicious for renal cell carcinoma. Urological consultation recommended. Colonic diverticulosis. Small hiatal hernia. 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 Details above. T ASSESSMENT/PLAN: 1. Cellulitis of rectal area - ICD9: 566, ICD10: K61.1 (primary diagnosis) - Improving, continue Augmentin 2. Rectal pain - ICD9: 569.42, ICD10: K62.89 - Advised to follow up with his GI provider - I do not see any records for his colonoscopy. Will need to request them for his PCP. 3. Left renal mass - ICD9: 593.9, ICD10: N28.89 - He believes he was seen by Dr. Haque in [place]. New referral placed. - CONSULT TO UROLOGY Return if symptoms worsen or fail to improve. I have reviewed the patient's (ER) course including diagnostic testing performed during this ER visit, their discharge medications, and my assessment and plan with the patient. Discussed the above with the patient using shared decision making. The patient is in agreement with the diagnostic and treatment plans. Medications Discontinued During This Encounter Medication Reason azithromycin (ZITHROMAX Z-GRETTA) 250 mg tablet Course of therapy completed albuterol HFA (PROVENTIL HFA, VENTOLIN HFA) 90 mcg/actuation inhaler Duplicate Entry aspirin 81 mg chewable tablet Duplicate Entry Marylou Covarrubias APRN.CNP October 22, 2022 3:38 PM documented in this encounter [facility] 07-19-2022 Note HNO ID: [id number] Author: Quinton Caldwell APRN.ALEXANDER Service: ? Author Type: Nurse Practitioner Type: Progress Notes Filed: 07/19/2022 10:49 AM Note Text: This note was created using [employer]. Subjective Duncan Walters is a 76 year old male here today for sick visit. I reviewed past medical, surgical, social, and family histories today and updated chart. Allergies, chronic medications, and supplements were also reviewed. Started on Tuesday with a headache Cough, nasal drainage Sinus pressure and pain Losing voice Not using a nasal spray, has them at home No allergy pill PAST MEDICAL HISTORY Diagnosis Date Allergic rhinitis Anxiety BPH (benign prostatic hyperplasia) Coronary artery disease Esophageal stricture GERD (gastroesophageal reflux disease) H/O heart artery stent 1999 1999, 2005, 2018 Heart failure (HCC) Irritable bowel disease PAST SURGICAL HISTORY Procedure Laterality Date CARDIAC CATHETERIZATION HX HEART SURGERY HX 2005 2 stents HERNIA REPAIR HX PROSTATE SURGERY HX 2009 prostate reduction ALLERGIES Sulfa (Sulfonamide Antibiotics) MEDICATIONS aspirin 81 mg chewable tablet Take 81 mg by mouth. albuterol HFA (PROVENTIL HFA, VENTOLIN HFA) 90 mcg/actuation inhaler Inhale 2 Puffs as instructed every 4 hours as needed. fluticasone (FLONASE ALLERGY RELIEF) 50 mcg/actuation nasal spray Use 2 Sprays in each nostril once daily. metoprolol tartrate, short acting, (LOPRESSOR) 25 mg tablet Take 25 mg by mouth twice daily. valsartan (DIOVAN) 80 mg tablet Take 160 mg by mouth once daily. clopidogrel (PLAVIX) 75 mg tablet Take 75 mg by mouth once daily. atorvastatin (LIPITOR) 40 mg tablet Take 40 mg by mouth daily at bedtime. aspirin, enteric coated (ASPIRIN, ENTERIC COATED) 81 mg EC tablet Take 81 mg by mouth once daily. pantoprazole DR (PROTONIX) 40 mg tablet Take 1 tablet by mouth twice daily. guaiFENesin (MUCINEX) 600 mg 12 hr tablet Take 1 tablet by mouth twice daily. (Patient not taking: Reported on 07/19/2022) benzonatate (TESSALON PERLES) 100 mg capsule Take 1 capsule by mouth three times daily as needed for cough. (Patient not taking: Reported on 07/19/2022) predniSONE (DELTASONE) 20 mg tablet Take 3 pills by mouth daily for 3 days, then 2 pills by mouth daily for 3 days, then 1 pill by mouth daily for 3 days (Patient not taking: Reported on 07/19/2022) PARoxetine (PAXIL) 40 mg tablet Take 40 mg by mouth once daily. (Patient not taking: Reported on 04/30/2021 ) lamoTRIgine (LAMICTAL) 25 mg tablet Take 25 mg by mouth once daily. (Patient not taking: Reported on 04/30/2021 ) FAMILY HISTORY Adopted: Yes Social History Tobacco Use Smoking status: Former Smokeless tobacco: Current Types: Snuff Vaping Use Vaping Use: Never used Substance Use Topics Alcohol use: No Drug use: No Review of Systems Constitutional: Positive for fatigue. Negative for appetite change, chills, fever and unexpected weight change. HENT: Positive for congestion, postnasal drip, rhinorrhea, sinus pressure, sinus pain, sore throat and voice change. Negative for ear pain. Eyes: Negative for pain, discharge, itching and visual disturbance. Respiratory: Positive for cough. Negative for shortness of breath and wheezing. Cardiovascular: Negative for chest pain, palpitations and leg swelling. Gastrointestinal: Negative for abdominal pain, constipation, diarrhea, nausea and vomiting. Genitourinary: Negative for difficulty urinating. Skin: Negative for rash. Neurological: Positive for headaches. Negative for dizziness, tremors and weakness. Psychiatric/Behavioral: Negative for dysphoric mood and sleep disturbance. The patient is not nervous/anxious. Objective BP 150/60 Pulse (!) 45 Temp 36.7 ?C (98.1 ?F) Ht 177.8 cm (5' 10 ) Wt 116.1 kg (256 lb) SpO2 95% BMI 36.73 kg/m? 122 58 Physical Exam Constitutional: Appearance: Normal appearance. He is well-developed. He is ill-appearing. He is not diaphoretic. HENT: Head: Normocephalic and atraumatic. Right Ear: Hearing, tympanic membrane, ear canal and external ear normal. Left Ear: Hearing, ear canal and external ear normal. A middle ear effusion is present. Tympanic membrane is erythematous. Nose: Nose normal. Mouth/Throat: Lips: [place]. Mouth: Mucous membranes are moist. Pharynx: Oropharynx is clear. Posterior oropharyngeal erythema present. Eyes: General: Lids are normal. Conjunctiva/sclera: Conjunctivae normal. Pupils: Pupils are equal, round, and reactive to light. Neck: Vascular: Normal carotid pulses. No carotid bruit or JVD. Cardiovascular: Rate and Rhythm: Normal rate and regular rhythm. Pulses: Carotid pulses are 2+ on the right side and 2+ on the left side. Radial pulses are 2+ on the right side and 2+ on the left side. Dorsalis pedis pulses are 2+ on the right side and 2+ on the left side. Heart sounds: Normal heart sounds. No murmur he (more content not included)... [facility] 07-19-2022 History of Presen t illness Narrative This note was created using [employer]. Subjective Duncan Walters is a 76 year old male here today for sick visit. I reviewed past medical, surgical, social, and family histories today and updated chart. Allergies, chronic medications, and supplements were also reviewed. Started on Tuesday with a headache Cough, nasal drainage Sinus pressure and pain Losing voice Not using a nasal spray, has them at home No allergy pill PAST MEDICAL HISTORY Diagnosis Date Allergic rhinitis Anxiety BPH (benign prostatic hyperplasia) Coronary artery disease Esophageal stricture GERD (gastroesophageal reflux disease) H/O heart artery stent 1999 1999, 2005, 2017 Heart failure (HCC) Irritable bowel disease PAST SURGICAL HISTORY Procedure Laterality Date CARDIAC CATHETERIZATION HX HEART SURGERY HX 2005 2 stents HERNIA REPAIR HX PROSTATE SURGERY HX 2009 prostate reduction ALLERGIES Sulfa (Sulfonamide Antibiotics) MEDICATIONS aspirin 81 mg chewable tablet Take 81 mg by mouth. albuterol HFA (PROVENTIL HFA, VENTOLIN HFA) 90 mcg/actuation inhaler Inhale 2 Puffs as instructed every 4 hours as needed. fluticasone (FLONASE ALLERGY RELIEF) 50 mcg/actuation nasal spray Use 2 Sprays in each nostril once daily. metoprolol tartrate, short acting, (LOPRESSOR) 25 mg tablet Take 25 mg by mouth twice daily. valsartan (DIOVAN) 80 mg tablet Take 160 mg by mouth once daily. clopidogrel (PLAVIX) 75 mg tablet Take 75 mg by mouth once daily. atorvastatin (LIPITOR) 40 mg tablet Take 40 mg by mouth daily at bedtime. aspirin, enteric coated (ASPIRIN, ENTERIC COATED) 81 mg EC tablet Take 81 mg by mouth once daily. pantoprazole DR (PROTONIX) 40 mg tablet Take 1 tablet by mouth twice daily. guaiFENesin (MUCINEX) 600 mg 12 hr tablet Take 1 tablet by mouth twice daily. (Patient not taking: Reported on 07/19/2022) benzonatate (TESSALON PERLES) 100 mg capsule Take 1 capsule by mouth three times daily as needed for cough. (Patient not taking: Reported on 07/19/2022) predniSONE (DELTASONE) 20 mg tablet Take 3 pills by mouth daily for 3 days, then 2 pills by mouth daily for 3 days, then 1 pill by mouth daily for 3 days (Patient not taking: Reported on 07/19/2022) PARoxetine (PAXIL) 40 mg tablet Take 40 mg by mouth once daily. (Patient not taking: Reported on 04/30/2021 ) lamoTRIgine (LAMICTAL) 25 mg tablet Take 25 mg by mouth once daily. (Patient not taking: Reported on 04/30/2021 ) FAMILY HISTORY Adopted: Yes Social History Tobacco Use Smoking status: Former Smokeless tobacco: Current Types: Snuff Vaping Use Vaping Use: Never used Substance Use Topics Alcohol use: No Drug use: No Review of Systems Constitutional: Positive for fatigue. Negative for appetite change, chills, fever and unexpected weight change. HENT: Positive for congestion, postnasal drip, rhinorrhea, sinus pressure, sinus pain, sore throat and voice change. Negative for ear pain. Eyes: Negative for pain, discharge, itching and visual disturbance. Respiratory: Positive for cough. Negative for shortness of breath and wheezing. Cardiovascular: Negative for chest pain, palpitations and leg swelling. Gastrointestinal: Negative for abdominal pain, constipation, diarrhea, nausea and vomiting. Genitourinary: Negative for difficulty urinating. Skin: Negative for rash. Neurological: Positive for headaches. Negative for dizziness, tremors and weakness. Psychiatric/Behavioral: Negative for dysphoric mood and sleep disturbance. The patient is not nervous/anxious. Objective BP 150/60 Pulse (!) 45 Temp 36.7 C (98.1 F) Ht 177.8 cm (5' 10 ) Wt 116.1 kg (256 lb) SpO2 95% BMI 36.73 kg/m 122 58 Physical Exam Constitutional: Appearance: Normal appearance. He is well-developed. He is ill-appearing. He is not diaphoretic. HENT: Head: Normocephalic and atraumatic. Right Ear: Hearing, tympanic membrane, ear canal and external ear normal. Left Ear: Hearing, ear canal and external ear normal. A middle ear effusion is present. Tympanic membrane is erythematous. Nose: Nose normal. Mouth/Throat: Lips: [place]. Mouth: Mucous membranes are moist. Pharynx: Oropharynx is clear. Posterior oropharyngeal erythema present. Eyes: General: Lids are normal. Conjunctiva/sclera: Conjunctivae normal. Pupils: Pupils are equal, round, and reactive to light. Neck: Vascular: Normal carotid pulses. No carotid bruit or JVD. Cardiovascular: Rate and Rhythm: Normal rate and regular rhythm. Pulses: Carotid pulses are 2+ on the right side and 2+ on the left side. Radial pulses are 2+ on the right side and 2+ on the left side. Dorsalis pedis pulses are 2+ on the right side and 2+ on the left side. Heart sounds: Normal heart sounds. No murmur heard. Pulmonary: Effort: Pulmonary effort is normal. Breath sounds: Normal breath sounds. No wheezing, rhonchi or rales. Abdominal: General: Bowel sounds are normal. Palpations: Abdomen is soft. Tenderness: There is no abdominal tenderness. Musculoskeletal: General: Normal range of motion. Cervical back: Normal range of motion and neck supple. Right lower leg: No edema. Left lower leg: No edema. Lymphadenopathy: Cervical: No cervical adenopathy. Skin: General: Skin is warm and dry. Findings: No rash. Neurological: General: No focal deficit present. Mental Status: He is alert and oriented to person, place, and time. Cranial Nerves: No cranial nerve deficit. Sensory: Sensation is intact. Motor: Motor function is intact. Coordination: Coordination is intact. Gait: Gait is intact. Psychiatric: Attention and Perception: Attention and perception normal. Mood and Affect: Mood and affect normal. Speech: Speech normal. Behavior: Behavior normal. Behavior is cooperative. Thought Content: Thought content normal. Judgment: Judgment normal. ASSESSMENT/PLAN: 1. Upper respiratory tract infection, unspecified type - ICD9: 465.9, ICD10: J06.9 (primary diagnosis) - Discussed viral etiology and rationale for treatment. Left ear is slightly erythematous, may start doxycycline 100 mg BID x 10 days - Symptomatic treatment with prn analgesia - Supportive care with fluids and rest - Follow up in 3-5 days if symptoms persist or sooner if worsening of symptoms - COVID WITH FLUA+B, ROUTINE 2. Wheezing - ICD9: 786.07, ICD10: R06.2 Albuterol inhaler as needed - ALBUTEROL SULFATE HFA 90 MCG/ACTUATION AEROSOL INHALER FU in 3 months for HTN/HPL Quinton Caldwell APRN.ROOM CLEANER documented in this encounter [facility] 06-30-2022 Note HNO ID: [id number] Author: Carrie Dillard Service: ? Author Type: ? Type: Progress Notes Filed: 06/30/2022 3:16 PM Note Text: POPULATION HEALTH NAVIGATION OUTREACH Action/FYI [place] attribution review PCP Quinton Caldwell APRN, CNP Patient Identified by Name and : YES, via chart Outreach Outcome/Action PCP field updated Did you use a PCP flex slot to schedule this appointment? N/A Reason for Outreach Attribution: Provider Off-boarding Payer: Payor: [employer] / Plan: [employer] HMO / Product Type: HMO / Care Gap Reviewed:: N/A Reminder: Reminder note to check Health Maintenance for items below Health Maintenance items due: PNEUMOCOCCAL: 65+(1 - PCV) Never done HEPATITIS C SCREENING Never done DTAP,TDAP,TD(1 - Tdap) Never done COLORECTAL CANCER SCREENING Never done SHINGRIX VACCINE(1 of 2) Never done LDL CHOLESTEROL due on 03/30/2010 LIPID SCREEN due on 03/30/2014 COVID-19 VACCINE(4 - Booster for Moderna series) due on 03/29/2021 SERUM CREATININE due on 06/23/2021 ADVANCE DIRECTIVE DISCUSSION Never done ANNUAL PCP TEAM CHRONIC DISEASE VISIT due on 05/14/2022 Navigation Signature: Carrie Dillard June 30, 2022 3:13 PM [facility] 06-30-2022 Note Patient Outreach (AG ACM) DUNCAN WALTERS ([id number]) 1945 M TXT Date Time Provider Department 06/30/22 CARRIE DILLARD AGA During your visit today, we recorded the following information about you: Carrie Dillard 06/30/2022 3:16 PM Signed POPULATION HEALTH NAVIGATION OUTREACH Action/FYI [place] attribution review PCP Quinton Caldwell APRN, ROOM CLEANER Patient Identified by Name and : YES, via chart Outreach Outcome/Action PCP field updated Did you use a PCP flex slot to schedule this appointment? N/A Reason for Outreach Attribution: Provider Off-boarding Payer: Payor: [employer] / Plan: [employer] HMO / Product Type: HMO / Care Gap Reviewed:: N/A Reminder: Reminder note to check Health Maintenance for items below Health Maintenance items due: PNEUMOCOCCAL: 65+(1 - PCV) Never done HEPATITIS C SCREENING Never done DTAP,TDAP,TD(1 - Tdap) Never done COLORECTAL CANCER SCREENING Never done SHINGRIX VACCINE(1 of 2) Never done LDL CHOLESTEROL due on 03/30/2010 LIPID SCREEN due on 03/30/2014 COVID-19 VACCINE(4 - Booster for Moderna series) due on 03/29/2021 SERUM CREATININE due on 06/23/2021 ADVANCE DIRECTIVE DISCUSSION Never done ANNUAL PCP TEAM CHRONIC DISEASE VISIT due on 05/14/2022 Navigation Signature: Carrie Dillard June 30, 2022 3:13 PM Allergies As of Date: 06/30/2022 Noted Allergy Reaction SULFA (SULFONAMIDE ANTIBIOTICS) 08/24/2016 16 - Unknown Date Reviewed: 05/14/2021 Reviewed by: Brenda Barton MD - Fully Assessed Reason for Visit: Population Health Navigation Outreach [[id number]] Cmt: Attribution review Prescriptions as of 06/30/2022 - guaiFENesin (MUCINEX) 600 mg 12 hr tablet Take 1 tablet by mouth twice daily. - benzonatate (TESSALON PERLES) 100 mg capsule Take 1 capsule by mouth three times daily as needed for cough. - predniSONE (DELTASONE) 20 mg tablet Take 3 pills by mouth daily for 3 days, then 2 pills by mouth daily for 3 days, then 1 pill by mouth daily for 3 days - albuterol HFA (PROVENTIL HFA, VENTOLIN HFA) 90 mcg/actuation inhaler Inhale 2 Puffs as instructed every 4 hours as needed. - fluticasone (FLONASE ALLERGY RELIEF) 50 mcg/actuation nasal spray Use 2 Sprays in each nostril once daily. - metoprolol tartrate, short acting, (LOPRESSOR) 25 mg tablet Take 25 mg by mouth twice daily. - valsartan (DIOVAN) 80 mg tablet Take 160 mg by mouth once daily. - clopidogrel (PLAVIX) 75 mg tablet Take 75 mg by mouth once daily. - atorvastatin (LIPITOR) 40 mg tablet Take 40 mg by mouth daily at bedtime. - PARoxetine (PAXIL) 40 mg tablet Take 40 mg by mouth once daily. - aspirin, enteric coated (ASPIRIN, ENTERIC COATED) 81 mg EC tablet Take 81 mg by mouth once daily. - lamoTRIgine (LAMICTAL) 25 mg tablet Take 25 mg by mouth once daily. - pantoprazole DR (PROTONIX) 40 mg tablet Take 1 tablet by mouth twice daily. Problem List As Of Date 06/30/2022 Noted Resolved Atherosclerotic heart disease of [place] coronar*09/04/2015 Hyperlipidemia, unspecified [E78.5] 09/04/2015 Major depressive disorder, single episode, unsp*09/04/2015 Presence of coronary angioplasty implant and gr*09/04/2015 Personal history of nicotine dependence [Z87.89*09/04/2015 Anxiety [F41.9] 05/16/2018 BPH (benign prostatic hyperplasia) [N40.0] GERD (gastroesophageal reflux disease) [K21.9] Irritable bowel disease [K58.9] Obstructive sleep apnea (adult) (pediatric) [G4*07/27/2017 Nonrheumatic aortic valve insufficiency [I35.1] 03/19/2019 Pulmonary arterial hypertension (HCC) [I27.21] 03/19/2019 Rheumatic heart disease [I09.9] 06/02/2018 Stable angina pectoris (HCC) [I20.8] 03/19/2019 Recurrent major depressive disorder, in full re*03/19/2019 Obesity, Class II, BMI 35-39.9 [E66.9] 03/19/2019 Chronic kidney disease, stage 3 unspecified (HC*06/23/2020 BMI 38.0-38.9,adult [Z68.38] 04/30/2021 Encounter Status:Closed by CARRIE DILLARD on 06/30/22 [facility] 05-14-2021 Instructions Brenda Barton MD - 05/14/2021 12:00 PM EDT Call if symptoms persist or worsen. documented in this encounter [facility] 05-14-2021 History of Presen t illness Narrative This note was created using [employer]. Subjective Duncan Walters is a 75 year old male. The patient is here for an acute visit. He normally sees Quinton Caldwell CNP. The patient has complaints of cough and congestion. The patient reports he was seen by Dr. Aleman on 04/30 with similar complaints. At that time, his symptoms were going on for a day. He had been taking flonase and declined flu or COVID testing. He was instructed to call in a week if his symptoms persisted or worsened. He called the office on 05/06 with persistent symptoms and was prescribed a course of azithromycin at that time. He wasn't taking or doing anything else for his symptoms. He denies any fevers. The patient is fully vaccinated and is a former smoker. He denies any history of asthma or COPD. Today, the patient reports he is still coughing. He reports it is about 50% better. He reports he was previously bringing up mucous and now, it is more of a dry cough. He reports he also thinks he might have a UTI. He reports he has been having urinary frequency yesterday. He reports an aching in his groin area. He hasn't had any hematuria or flank pain. The patient reports he drinks plenty of water. Symptoms include: Fever (=100.4F): No or Chills: No Cough: Yes Shortness of breath: No or Difficulty breathing: No Fatigue: No Muscle aches: No Headache: Yes, improving New loss of smell or taste: No Sore throat: No Nasal congestion: Yes, improving or Rhinorrhea: No Nausea: No or Vomiting: No Diarrhea: No OTC meds/remedies that patient has tried: flonase. High risk category assessment Age > 60 years old Coronary artery disease Exposures: Sick contacts? No Family or close contacts with confirmed/probable COVID-19 in last 14 days? No The history is provided by the patient. Cough This is a new problem. The current episode started more than 1 week ago. The problem occurs constantly. The problem has been gradually improving. The cough is non-productive. There has been no fever. Associated symptoms include headaches (improving). Pertinent negatives include no chest pain, no chills, no ear pain, no rhinorrhea, no sore throat, no myalgias and no shortness of breath. He is not a smoker. His past medical history does not include COPD or asthma. UTI This is a new problem. The current episode started yesterday. The problem has not changed since onset.The quality of the pain is described as aching. There has been no fever. Associated symptoms include frequency. Pertinent negatives include no chills, no nausea, no vomiting, no hematuria and no flank pain. He has tried increased fluids for the symptoms. His past medical history is significant for recurrent UTIs. ALLERGIES Allergen Reactions Sulfa (Sulfonamide * Unknown Current Outpatient Medications Medication Sig Dispense Refill azithromycin (ZITHROMAX Z-GRETTA) 250 mg tablet Take 2 tablets (500 mg) by mouth on day 1, then take 1 tablet (250 mg) by mouth for 4 days. 6 tablet 0 benzonatate (TESSALON PERLES) 100 mg capsule Take 1 capsule by mouth three times daily as needed for cough. 30 capsule 0 predniSONE (DELTASONE) 20 mg tablet Take 3 pills by mouth daily for 3 days, then 2 pills by mouth daily for 3 days, then 1 pill by mouth daily for 3 days 18 tablet 0 albuterol HFA (PROVENTIL HFA, VENTOLIN HFA) 90 mcg/actuation inhaler Inhale 2 Puffs as instructed every 4 hours as needed. 18 g 0 fluticasone (FLONASE ALLERGY RELIEF) 50 mcg/actuation nasal spray Use 2 Sprays in each nostril once daily. 1 Each 2 metoprolol tartrate, short acting, (LOPRESSOR) 25 mg tablet Take 25 mg by mouth twice daily. valsartan (DIOVAN) 80 mg tablet Take 160 mg by mouth once daily. 3 clopidogrel (PLAVIX) 75 mg tablet Take 75 mg by mouth once daily. 3 atorvastatin (LIPITOR) 40 mg tablet Take 40 mg by mouth daily at bedtime. 3 aspirin, enteric coated (ASPIRIN, ENTERIC COATED) 81 mg EC tablet Take 81 mg by mouth once daily. pantoprazole DR (PROTONIX) 40 mg tablet Take 1 tablet by mouth twice daily. 60 tablet 2 PARoxetine (PAXIL) 40 mg tablet Take 40 mg by mouth once daily. (Patient not taking: Reported on 04/30/2021 ) lamoTRIgine (LAMICTAL) 25 mg tablet Take 25 mg by mouth once daily. (Patient not taking: Reported on 04/30/2021 ) No current facility-administered medications for this visit. ACTIVE PROBLEM LIST Atherosclerotic Heart Disease of [place] Coronary Artery Without Angina Pectoris Hyperlipidemia, Unspecified Major Depressive Disorder, Single Episode, Unspecified Presence of Coronary Angioplasty Implant and Graft Personal History of Nicotine Dependence Anxiety Bph (Benign Prostatic Hyperplasia) Gerd (Gastroesophageal Reflux Disease) Irritable Bowel Disease Obstructive Sleep Apnea (Adult) (Pediatric) Nonrheumatic Aortic Valve Insufficiency Pulmonary Arterial Hypertension (Hcc) Rheumatic Heart Disease Stable Angina Pectoris (Hcc) Recurrent Major Depressive Disorder, in Full Remission (Hcc) Obesity, Class II, Bmi 35-39.9 Chronic Kidney Disease, Stage 3 Unspecified (Hcc) Bmi 38.0-38.9,Adult Social History Tobacco Use Smoking status: Former Smoker Quit date: 02/14/1999 Years since quittin.2 Smokeless tobacco: Current User Types: Snuff Vaping Use Vaping Use: Never used Substance Use Topics Alcohol use: No Drug use: No Family History Adopted: Yes Reviewed past medical and surgical history. Review of Systems Constitutional: Positive for diaphoresis. Negative for chills, fatigue and fever. HENT: Positive for congestion (improving). Negative for ear discharge, ear pain, rhinorrhea, sinus pressure (resolved), sinus pain and sore throat. Respiratory: Positive for cough. Negative for chest tightness and shortness of breath. Cardiovascular: Negative for chest pain. Gastrointestinal: Negative for diarrhea, nausea and vomiting. Genitourinary: Positive for dysuria and frequency. Negative for flank pain and hematuria. Musculoskeletal: Negative for myalgias. Skin: Negative for rash. Neurological: Positive for headaches (improving). Negative for dizziness, syncope and light-headedness. Objective BP 126/64 (BP Site: Right Arm, BP Position: Sitting, BP Cuff Size: Large Adult) Pulse 66 Temp 36.9 C (98.4 F) Resp 18 Ht 177.8 cm (5' 10 ) SpO2 97% BMI 38.68 kg/m Physical Exam Vitals and nursing note reviewed. Constitutional: General: He is not in acute distress. Appearance: He is not diaphoretic. HENT: Head: Normocephalic and atraumatic. Right Ear: Tympanic membrane normal. Left Ear: Tympanic membrane normal. Nose: No mucosal edema or rhinorrhea. Right Sinus: No maxillary sinus tenderness or frontal sinus tenderness. Left Sinus: No maxillary sinus tenderness or frontal sinus tenderness. Mouth/Throat: Mouth: Mucous membranes are moist. Pharynx: Oropharynx is clear. Eyes: Conjunctiva/sclera: Conjunctivae normal. Pupils: Pupils are equal, round, and reactive to light. Cardiovascular: Rate and Rhythm: Normal rate and regular rhythm. Heart sounds: Normal heart sounds. No murmur heard. Pulmonary: Effort: Pulmonary effort is normal. No respiratory distress. Breath sounds: Normal breath sounds. No wheezing. Abdominal: General: Bowel sounds are normal. There is no distension. Palpations: Abdomen is soft. Tenderness: There is no abdominal tenderness. There is no right CVA tenderness or left CVA tenderness. Lymphadenopathy: Head: Right side of head: No submental, submandibular, tonsillar, preauricular or posterior auricular adenopathy. Left side of head: No submental, submandibular, tonsillar, preauricular or posterior auricular adenopathy. Cervical: No cervical adenopathy. Skin: General: Skin is warm and dry. Neurological: Mental Status: He is alert and oriented to person, place, and time. Psychiatric: Mood and Affect: Mood normal. Behavior: Behavior is cooperative. Office Visit on 05/14/2021 Component Date Value Ref Range Status GLUCOSE UA (POCT) 05/14/2021 Negative Negative mg/dL Final BILIRUBIN UA (POCT) 05/14/2021 Negative Negative Final KETONE UA (POCT) 05/14/2021 Negative Negative mg/dL Final SPECIFIC GRAVITY UA (POCT) 05/14/2021 >=1.030 1.005 - 1.030 Final HEMOGLOBIN/BLOOD UA (POCT) 05/14/2021 Trace-intact (A) Negative Final PH UA (POCT) 05/14/2021 5.5 4.5 - 8.0 Final PROTEIN UA (POCT) 05/14/2021 Trace (A) Negative mg/dL Final UROBILINOGEN UA (POCT) 05/14/2021 0.2 Normal E.U./dL Final NITRITE UA (POCT) 05/14/2021 Negative Negative Final LEUKOCYTES UA (POCT) 05/14/2021 Negative Negative Final COLOR UA (POCT) 05/14/2021 Ludmila Final CLARITY UA (POCT) 05/14/2021 Clear Final Assessment and Plan 1. URI, acute - ICD9: 465.9, ICD10: J06.9 (primary diagnosis) - Symptomatic treatment with prn analgesia - Supportive care with fluids and rest - GUAIFENESIN ER 600 MG TABLET, EXTENDED RELEASE 12 HR The patient has been using flonase and reports that his symptoms are improving, although he continues to have problems with an ongoing cough. Exam is fairly unremarkable. He has already completed a course of azithromycin. At this time, I do not feel that further antibiotics are needed nor do I see an indication for steroids. Will have him try a course of mucinex. He was instructed to call if his symptoms persist or worsen and he was in agreement. If they do not improve, he may need a CXR and/or course of steroids. He was in agreement. 2. Urinary frequency - ICD9: 788.41, ICD10: R35.0 acute - UA positive for hematuria and proteinuria - UA DIP, URINE (POC) - URINE CULTURE Patient complains of urinary frequency. UA does not suggest a UTI, however, due to the trace blood, will send for culture to ensure nothing is growing. He was in agreement. The patient is here for an acute visit. Plan as above. Medications reviewed with the patient. He was instructed to call with any concerns or questions and he was in agreement. Return if symptoms worsen or fail to improve. Brenda Barton MD I spent a total of 35 minutes on the date of the service which included preparing to see the patient, [id number] patient care, completing clinical documentation and obtaining and/or reviewing separately obtained history. documented in this encounter [facility] 05-06-2021 Miscellaneous Notes Patient notified. Makenzie Hemphill MA Please call pt - Rx for antibiotic sent to pharmacy Rohini Aleman DO Patient left message on voice mail stating he was to call back dr. Aleman if he was not feeling any better. Patient states he is not any better and would like a antibiotic sent to pharmacy. Makenzie Hemphill MA documented in this encounter [facility] Diagnosis Upper respiratory tract infection, unspecified type- Primary Wheezing [facility] Diagnosis Cellulitis of rectal area- Primary Abscess of anal and rectal regions Rectal pain Anal or rectal pain Left renal mass Unspecified disorder of kidney and ureter documented in this encounter [facility] Summary Purpose Family History No Family History Records FoundNo Family History Records FoundNo Family History Records FoundNo Family History Records Found Advance Directives No Advanced Directives Records FoundDocuments on File Type Date Recorded 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 Advance Directive(s) 08/24/2016 6:51 AM Reason for Referral Specialty Diagnoses / Procedures Referred By Contac t Referred To Contact Urology / UROLOGY Diagnoses Left renal mass Procedures CONSULT TO UROLOGY OFFICE/OUTPATIENT [facility] 60-74 MINUTES Marylou Covarrubias, HIGH SCHOOL COORDINATOR.ROOM CLEANER [address] [place] [address] Sunny Haque MD [address] [place] [id number] Referral ID Status Reason Start Date Expiration Date Visits Requested Visits Authorized [id number] Pending Review PCP Requested Referral 10/22/2022 10/22/2023 1 1 Additional Source Comments (unrecognized sect ion and content) No Status Records FoundNo Status Records FoundNo Status Records FoundNo Status Records Found INFORMATION SOURCE (unrecogn ized section and content) DATE CREATED AUTHOR AUTHOR'S ORGANIZ ATION 12/08/2018 [facility] DATE CREATED AUTHOR AUTHOR'S ORGANIZ ATION 11/02/2022 [facility] DATE CREATED AUTHOR AUTHOR'S SRAVAN LONG 12/16/2022 [facility] Source Comments (unrecognize d section and content) In the event this informatio n is protected by the Federal Confidentiality of Alcohol and Drug Abuse Patient Records regulations: The Federal rules restrict any use of the information to criminally investigate or prosecute any alcohol or drug abuse patient.[facility] the event this information is protected by the Federal Confidentiality of Alcohol and Drug Abuse Patient Records regulations: The Federal rules restrict any use of the information to criminally investigate or prosecute any alcohol or drug abuse patient.[facility] the event this information is protected by the Federal Confidentiality of Alcohol and Drug Abuse Patient Records regulations: The Federal rules restrict any use of the information to criminally investigate or prosecute any alcohol or drug abuse patient.[facility] the event this information is protected by the Federal Confidentiality of Alcohol and Drug Abuse Patient Records regulations: The Federal rules restrict any use of the information to criminally investigate or prosecute any alcohol or drug abuse patient.[facility] the event this information is protected by the Federal Confidentiality of Alcohol and Drug Abuse Patient Records regulations: The Federal rules restrict any use of the information to criminally investigate or prosecute any alcohol or drug abuse patient.[facility] Reason for Visit (unrecogniz ed section and content) Reason Comments cough and sweating f/u Reason Comments Nasal Congestion Loss of voice starte d yesterday Headache Started Tuesday Reason Comments ER F/U Reason Onset Date Comments Clinical Update 12/10/2022 Care Teams (unrecognized sec tion and content) 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 Specialty Start Date End Date Quinton Caldwell, HIGH SCHOOL COORDINATOR.ROOM CLEANER [address] [place], [place] [phone] PCP - General Family Practice 05/16/18 Josué Fernandez MD Physician Gastroenterology 08/24/16 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 Specialty Start Date End Date Quinton Caldwell, HIGH SCHOOL COORDINATOR.ROOM CLEANER [address] [place], [place] [phone] PCP - General Family Medicine 05/16/18 Josué Fernandez MD Physician Gastroenterology 08/24/16 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 Specialty Start Date End Date Quinton Caldwell, HIGH SCHOOL COORDINATOR.ROOM CLEANER [address] [facility], [place] [phone] PCP - General Family Medicine 05/16/18 Josué Fernandez MD Physician Gastroenterology 08/24/16 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 Specialty Start Date End Date Charlie Caldwellsusan Trujillo APRN.ROOM CLEANER [address] [place] [address] PCP - General Family Medicine 05/16/18 Josué Fernandez MD Physician Gastroenterology 08/24/16 FOR RECORDS PERTAINING TO PATIENTS WHO ARE OR HAVE BEEN ENROLLED IN A CHEMICAL DEPENDENCY/SUBSTANCEABUSE PROGRAM, SOME INFORMATION MAY BE OMITTED. This clinical summary was aggregated from multiple sources. Caution should be exercised in using it in the provision of clinical care. This summary normalizes information from multiple sources, and as a consequence, information in this document may materially change the coding, format and clinical context of patient data. In addition, data may be omitted in some cases. CLINICAL DECISIONS SHOULD BE BASED ON THE PRIMARY CLINICAL RECORDS. [employer] provides no warranty or guarantee of the accuracy or completeness of information in this document.
== END | disposition home or self-care (01) ==
PROVIDERS: PCP Nurse Practitioner Family; Referring Provider Nurse Practitioner Family; Visit Provider Nurse Practitioner Family
DX: R53.83 Other fatigue (principal); R00.1 Bradycardia, unspecified
CPT/HCPCS: 93225; 93226

== ENCOUNTER 2023-03-21 10:45 | Emergency (ER) | payer MEDICARE, SELFPAY ==
[2023-03-21] VITALS (8 sets, daily range): BP systolic 156–191; BP diastolic 54–71; PULSE 35–64; RESP 12–23; TEMP 36.3; O2SAT 94–99; BMI 32.5
--- NOTE | 2023-03-21 11:46 | RAD_ITS ---
STUDY: X-RAY CHEST REASON FOR EXAM: Male, 77 years old. Chest pain TECHNIQUE: Single AP portable view of the chest. COMPARISON: Comparison is made with prior study of April 16, 2021. FINDINGS: EKG electrodes are seen. Mild elevation of the right hemidiaphragm. Lungs are clear. There is no demonstrated pleural abnormality. Normal size heart. Normal mediastinum and sarah. Normal visualized pulmonary arteries. There is atherosclerotic tortuosity of the aortic arch and descending thoracic aorta. There are diffuse degenerative changes of the visualized thoracic spine. Normal visualized ribs, clavicles, and shoulders. There is no demonstrated abnormality of the visualized soft tissue structures of the upper abdomen. RAD/Chest 1 View (Portable) IMPRESSION: Mild elevation of the right hemidiaphragm. The lungs are clear. Electronically Signed: Pierre Lin MD at 12:18 EST ,
--- NOTE | 2023-03-21 11:47 | EDS_ITS ---
HPI History of Present Illness Chief Complaint: Chest Pain Narrative Narrative: 77-year-old male past medical history of hypertension, coronary artery disease with 3 stents, sees Dr. Beach, presents with chest pain that worsened at 5:00 this morning. He relates history that back in January, he wore a heart monitor because he was having problems with his heart rate. He is on metoprolol. His heart rate was as low as the 30s and as high as the 80s. He states that it was suggested by the PA in cardiology that he take himself off metoprolol, however he had a racing heart so he went back on it. He states throughout the month of February, last month, he had problems with chest pain and mild shortness of breath. He denies any fevers or chills, no cough. Additionally, while he went to bed last evening without any pain, he awoke at 5 AM with chest pressure and shortness of breath. He took all his morning medications. He became concerned because he had worsening chest pressure and pain. He denies any nausea or vomiting. No diaphoresis, no exacerbating or alleviating factors. He states he took a nitroglycerin that he had at home and around 830 which relieved his pressure sensation. 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 Sleep apnea Home Medications aspirin 81 mg chewable tablet 81 mg PO DAILY@0800 02/08/19 [History Last Taken 04/16/21] pantoprazole 40 mg tablet,delayed release 40 mg PO BID #180 tabs 06/02/22 [Rx Last Taken Unknown] albuterol sulfate 90 mcg/actuation aerosol inhaler 2 puff inhalation Q4H PRN shortness of breath or wheezing 07/23/22 [History Last Taken Unknown] atorvastatin 40 mg tablet See Rx Instructions .Route .COMPLEX #90 tabs 07/23/22 [Rx Last Taken Unknown] clopidogrel 75 mg tablet See Rx Instructions .Route .COMPLEX #90 tabs 07/23/22 [Rx Last Taken Unknown] valsartan 160 mg tablet 160 mg PO DAILY 07/23/22 [History Last Taken Unknown] CBD gummy PO QHS 01/24/23 [History Last Taken Unknown] nitroglycerin 0.4 mg sublingual tablet 0.4 mg sublingual Q5-15M PRN chest pain #25 tabs 01/24/23 [Rx Last Taken Unknown] Allergy/AdvReac Type Severity Reaction Status Date / Time Sulfa (Sulfonamide Allergy Unknown Verified 03/21/23 10:47 Antibiotics) Family History Other Unknown Family History d/t Adoption Surgical History H/O colonoscopy with polypectomy (~11/2022) History of coronary artery stent placement History of left heart catheterization (04/17/21) History of transurethral resection of prostate Hx of cholecystectomy Social History (Updated 03/21/23 @ 10:59 by Loree Lopez) household members: none housing: house Smoking Status: Former smoker alcohol intake: never substance use type: does not use what type of physical activity do you participate in: walking frequency: 5-6 times per week ROS ROS ED ROS Narrative Constitutional: No fever, no chills. HEENT: No sore throat. No neck pain. No loss of vision. No rhinorrhea. Cardiovascular: Positive midsternal chest pressure/chest pain. No palpitations. No pedal edema. Respiratory: No cough, no shortness of breath. Abdominal: No abdominal pain. No nausea. No vomiting. Genitourinary: No dysuria. No hematuria. Musculoskeletal: No myalgias. No arthralgias. Neurologic: No headaches. No dizziness. No lightheadedness. Skin: No rash. No change in color. Psychiatric: No depression. No anxiety. EXAM Physical Exam Narrative Exam Narrative: Afebrile. Vital signs noted. HEENT: Normocephalic. Atraumatic. PERRL, EOMI. Neck soft and supple. No point tenderness or step off. Cardiovascular: Regular rate and rhythm. Positive murmur, rubs, or gallops appreciated. Respiratory: No tachypnea. Lungs clear to auscultation bilaterally. Gastrointestinal: Abdomen soft, nontender, with normoactive bowel sounds. No rebound or guarding. Neurological: Awake. Alert. Nonfocal, nonlateralizing. Skin: No rash. Normal color. No pallor. Musculoskeletal: No pedal edema. Full range of motion extremities. Const Vital Signs: 03/21/23 10:46 03/21/23 10:58 03/21/23 10:59 Temperature 97.4 F L Temperature Source Temporal Pulse Rate 64 57 L Respiratory Rate 14 12 Respiratory Effort Normal Blood Pressure 191/54 H Blood Pressure Mean 99 Pulse Ox 96 97 Oxygen Delivery Method Room Air 03/21/23 11:01 03/21/23 11:55 03/21/23 13:16 Temperature Temperature Source Pulse Rate 35 L Respiratory Rate 19 H Respiratory Effort Blood Pressure 168/68 H 187/71 H Blood Pressure Mean 101 109 Pulse Ox 99 96 Oxygen Delivery Method Room Air Room Air 03/21/23 12:45 03/21/23 13:00 03/21/23 14:00 Temperature Temperature Source Pulse Rate 36 L 37 L 38 L Respiratory Rate 23 H 21 H 21 H Respiratory Effort Blood Pressure 156/64 H 175/56 H 174/61 H Blood Pressure Mean 89 86 90 Pulse Ox 97 97 94 Oxygen Delivery Method MDM MDM MDM Narrative Medical decision making narrative: Chest pain workup was pursued. Concern would be for ACS versus hypertensive urgency. His blood pressure has come down from 1 91-1 68. Chest pain workup was pursued. EKG obtained and interpreted by myself independently as normal sinus rhythm at 60 bpm without ectopy or acute ST changes. No STEMI. No significant change from previous EKG dated April 17, 2021. He will be given aspirin as well. I reviewed his laboratory work and he has normal white count of 5.6, hemoglobin 16.2, hematocrit 47.7, platelet count normal at 157, potassium slightly low at 3.3. This will be replaced orally. Creatinine normal at 1.25 with BUN normal at 9, glucose slightly elevated at 144 but normal anion gap/low at 4. Chest x- ray in 1 view interpreted by myself independently shows no evidence of acute process no pneumothorax or pneumonia. I do not feel antibiotics are indicated. His initial high-sensitivity troponin is 15 with repeat being 18. At this point in time, I am unsure as to the cause of his chest pain but I do not feel he requires observation or admission. He is able to ambulate to the bathroom without difficulty and is not experiencing shortness of breath or chest pain currently. He did have slightly elevated blood pressure so he will be administered hydralazine 5 mg intravenously prior to discharge and will follow- up with cardiology. Return instructions to the emergency department were reviewed. Disposition is discharged home in stable condition. History & Record Review Discussion w/independent historian: Patient Additional record(s) reviewed:: Prior outpatient record and Prior labs Lab Data Attestation: I reviewed the patient's lab results. Labs: Laboratory Results - last 24 hr 03/21/23 03/21/23 10:54 13:15 WBC 5.6 RBC 5.38 Hgb 16.2 Hct 47.7 MCV 88.7 MCH 30.1 MCHC 34.0 RDW Std Deviation 42.1 RDW Coeff of Hardik 13.2 Plt Count 157 MPV 10.7 Immature Gran % (Auto) 0.200 Neut % (Auto) 78.0 H Lymph % (Auto) 13.8 L Perkins % (Auto) 4.1 Eos % (Auto) 2.5 Baso % (Auto) 1.4 H Absolute Neuts (auto) 4.4 Absolute Lymphs (auto) 0.78 L Nucleated RBC % 0 Sodium 141 Potassium 3.3 L Chloride 106 Carbon Dioxide 31.0 Anion Gap 4 L BUN 9 Creatinine 1.25 Estim Creat Clear Calc 62.22 Est GFR (MDRD) Af Amer 72 Est GFR (MDRD) Non-Af 60 BUN/Creatinine Ratio 7.2 L Glucose 144 H Calcium 8.9 Troponin I High Sens 15 18 Radiography Diagnostic Testing: Clinical Impression(s) from Imaging Studies Chest X-Ray 03/21/23 11:46 IMPRESSION: Mild elevation of the right hemidiaphragm. The lungs are clear. Electronically Signed: Pierre Lin MD at 12:18 EST , Discharge Plan Triage Chief Complaint: Chest Pain ED Provider: Heron Chinchilla Dx/Rx/DC Orders Clinical Impression: SOB (shortness of breath), Bradycardia, Chest pain, Hypokalemia Instructions: ED Bradycardia, ED Chest Pain, Uncertain Cause, ED Dyspnea Prescriptions: No Action valsartan 160 mg tablet 160 mg PO DAILY albuterol sulfate 90 mcg/actuation HFA aerosol inhaler 2 puff inhalation Q4H PRN (Reason: shortness of breath or wheezing) Patient Comments: INHALE 2 PUFFS INSTRUCTED EVERY 4 HOURS NEEDED FOR WHEEZING/SHORTNESS OF BREATH. CBD gummy PO QHS nitroglycerin 0.4 mg tablet, sublingual 0.4 mg sublingual Q5-15M PRN (Reason: chest pain) Qty: 25 3RF Rx Instructions: do not exceed 3 doses per episode aspirin 81 MG tablet,chewable 81 mg PO DAILY@0800 pantoprazole 40 mg tablet,delayed release (DR/EC) 40 mg PO BID Qty: 180 3RF atorvastatin 40 mg tablet See Rx Instructions .ROUTE .COMPLEX Qty: 90 3RF Dose Instruction: TAKE 1 TABLET BY MOUTH EVERYDAY AT BEDTIME Rx Instructions: TAKE 1 TABLET BY MOUTH EVERYDAY AT BEDTIME clopidogrel 75 mg tablet See Rx Instructions .ROUTE .COMPLEX Qty: 90 3RF Dose Instruction: TAKE 1 TABLET BY MOUTH EVERY DAY Rx Instructions: TAKE 1 TABLET BY MOUTH EVERY DAY Primary Care Provider: Rxoi Benedict NP Referrals: Butch Beach MD [Med Staff - Active Staff] - 3-5 Days Roxi Benedict NP, [employer] [Primary Care Provider] - Activity Restrictions/Additional Instructions: Follow up with cardiology. Return with increased pain, shortness of breath, new or worsening symptoms. Disposition Disposition: Home, Self Care Discharge Date/Time: 03/21/23 15:00
[2023-03-21] MEDS: Aspirin 81 MG TAB.CHEW 324 MG PO (11:53)
[2023-03-21 11:54] LABS: Absolute Lymphocyte Count 0.78 X10^3/uL (0.83-4.51); Absolute Neutrophil Count 4.4 X10^3/uL (2.0-7.7); Basophil# 0.08 X10^3/uL; Basophil% 1.4 % (0-1); Eosinophil# 0.14 X10^3/uL; Eosinophils% 2.5 % (0-5); Hematocrit 47.7 % (40-54); Hemoglobin 16.2 g/dL (13.0-16.5); Lymphocyte # 0.78 X10^3/ul (0.83-4.51); Lymphocyte % 13.8 % (19-41); Mean Corpuscular Hgb 30.1 pg (27.0-32.0); Mean Corpuscular Volume 88.7 fL (80-94); Mean Platelet Vol. 10.7 fl (6.2-12.0); Monocyte# 0.23 X10^3/uL; Monocyte% 4.1 % (0-10); NRBC Flagged by Analyzer 0 % (0-5); Platelet Count 157 K/mm3 (150-450); RBC Distribution Width CV 13.2 % (11.6-14.6); RBC Distribution Width SD 42.1 fl (35.1-43.9); Red Blood Count 5.38 M/mm3 (4.6-6.2); White Blood Count 5.6 K/mm3 (4.4-11.0)
[2023-03-21 12:07] LABS: Anion Gap 4 (5-15); BUN 9 mg/dL (7-18); BUN/Creat Ratio 7.2 RATIO (10-20); Calcium,Total 8.9 mg/dL (8.5-10.1); Chloride 106 mmol/L (98-107); Creatinine, Serum 1.25 mg/dL (0.70-1.30); EST Glomerular Filtration Rate 60 mL/min (>60); Est Glom Filt Rate - Afr Amer 72 mL/min (>60); Estimated Creatinine Clearance 62.22 ml/min; Glucose 144 mg/dL (74-106); Potassium 3.3 mmol/L (3.5-5.1); Sodium Level 141 mmol/L (136-145); Troponin-I HS (w/2H Reflex) 15 pg/mL (3.0-78.0)
--- OUTSIDE RECORDS SUMMARY | 2023-03-21 12:27 | XMS RPT_ITS | CCD ---
Author Name Unknown Address [address] [place] [address] Organization [facility] Care Team Providers Care Dining Room Coordinator Name Role Phone SELMA EL Unavailable Unavailable Josué Fernandez MD Unavailable Trill TOLL LINE INSPECTOR.Quinton MUNOZ Primary Care Provider Jsoué Fernandez MD Unavailable Trill TOLL LINE INSPECTOR.Quinton MUNOZ Primary Care Provider QUINTON CALDWELL Primary Care Unavailable QUINTON CALDWELL Attending Unavailable QUINTON CALDWELL Primary Care Unavailable MARYLOU COVARRUBIAS Attending Unavailable QUINTON CALDWELL Primary Care Unavailable QUINTON CALDWELL Primary Care Unavailable Allergies Allergy Classification Reported Allergen(s) Allergy Type Date of Onset Reaction(s) Facility (7 sources) Sulfonamides (Antibiotic); Translations: [SULFA (SULFONAMIDE ANTIBIOTICS)] Propensity to adverse reactions to drug (disorder) 7 Unknown [facility] Other [place] Repository Medications Current Medications Medication Drug Class(es) [...] Drug Class(es) Dates Sig (Normalized) Sig (Original) [id number] 200 actuat albuterol 0.09 mg/actuat metered dose [...] Coronary atherosclerosis; Translations: [Atherosclerotic heart disease of tetlin coronary artery without angina pectoris] Onset: 6 [...] 15:24-0400 Body height 177.8 cm Marylou Queden TOLL LINE INSPECTOR.ELECTRIC TRIPPER MACHINE OPERATOR Work Phone: [facility] 10-22-2022 15:24-0400 Body temperature 98.29 [degF] Marylou Queden TOLL LINE INSPECTOR.ELECTRIC TRIPPER MACHINE OPERATOR Work Phone: [facility] 10-22-2022 15:24-0400 Body weight 110.68 kg Marylou Queden TOLL LINE INSPECTOR.ELECTRIC TRIPPER MACHINE OPERATOR Work Phone: [facility] 10-22-2022 15:24-0400 Diastolic blood pressure 68 mm[Hg] Marylou Queden TOLL LINE INSPECTOR.ELECTRIC TRIPPER MACHINE OPERATOR Work Phone: [facility] 10-22-2022 15:24-0400 Heart rate 65 /min Marylou Queden TOLL LINE INSPECTOR.ELECTRIC TRIPPER MACHINE OPERATOR Work Phone: [facility] 10-22-2022 15:24-0400 Respiratory rate 18 /min Marylou Queden TOLL LINE INSPECTOR.ELECTRIC TRIPPER MACHINE OPERATOR Work Phone: [facility] 10-22-2022 15:24-0400 SaO2% (BldA) [Mass fraction] 99 % Marylou Queden TOLL LINE INSPECTOR.ELECTRIC TRIPPER MACHINE OPERATOR Work Phone: [facility] 10-22-2022 15:24-0400 Systolic blood pressure 126 mm[Hg] Marylou Queden TOLL LINE INSPECTOR.ELECTRIC TRIPPER MACHINE OPERATOR Work Phone: [facility] 07-19-2022 10:06-0400 Diastolic blood pressure 58 mm[Hg] Quinton Trill TOLL LINE INSPECTOR.ELECTRIC TRIPPER MACHINE OPERATOR Work Phone: [facility] 07-19-2022 10:06-0400 Systolic blood pressure 122 mm[Hg] Quinton Trill TOLL LINE INSPECTOR.ELECTRIC TRIPPER MACHINE OPERATOR Work Phone: [facility] 07-19-2022 09:50-0400 Body height 177.8 cm Quinton Trill TOLL LINE INSPECTOR.ELECTRIC TRIPPER MACHINE OPERATOR Work Phone: [facility] 07-19-2022 09:50-0400 Body temperature 98.1 [degF] Quinton Caldwell TOLL LINE INSPECTOR.ELECTRIC TRIPPER MACHINE OPERATOR Work Phone: [facility] 07-19-2022 09:50-0400 Body weight 116.12 kg Quinton Caldwell TOLL LINE INSPECTOR.ELECTRIC TRIPPER MACHINE OPERATOR Work Phone: [facility] 07-19-2022 09:50-0400 Heart rate 45 /min Quinton Caldwell TOLL LINE INSPECTOR.ELECTRIC TRIPPER MACHINE OPERATOR Work Phone: [facility] 07-19-2022 09:50-0400 SaO2% (BldA) [Mass fraction] 95 % Quinton Caldwell TOLL LINE INSPECTOR.ELECTRIC TRIPPER MACHINE OPERATOR Work Phone: [facility] 05-14-2021 11:16-0400 Body height 177.8 cm Brenda Barton MD Work Phone: [facility] 05-14-2021 11:16-0400 Body temperature 98.4 [degF] Brenda Barton MD Work Phone: [facility] 05-14-2021 11:16-0400 Diastolic blood pressure 64 mm[Hg] Brenda Barton MD Work Phone: [facility] 05-14-2021 11:16-0400 Heart rate 66 /min Brenda Barton MD Work Phone: [facility] 05-14-2021 11:16-0400 Respiratory rate 18 /min Brenda Barton MD Work Phone: [facility] 05-14-2021 11:16-0400 SaO2% (BldA) [Mass fraction] 97 % Brenda Barton MD Work Phone: [facility] 05-14-2021 11:16-0400 Systolic blood pressure 126 mm[Hg] Brenda Bartno MD Work Phone: [facility] Encounters Encounter Date Encounter Type Care Provider Facility Start: 12-10-2022 ambulatory Sulema Garcia RN [facility] Start: 12-10-2022 Patient encounter procedure Sulema Garcia RN [facility] Urological & Procedures Date Procedure Procedure Detail Performing Clinician Start: 05-14-2021 Urnls dip stick/tabl et rgnt auto w/o microscopy Brenda Barton MD Work Phone: Plan of Treatment Date Care Activity Detail Author Start: 10-17-2025 DIABETES SCREEN DIABETES SCREEN [facility] Start: 10-17-2025 Diabetes Screening Diabetes Screenin g [facility] Start: 10-23-2023 ANNUAL PCP TEAM JUICE SCALEMAN CHANG DISEASE VISIT ANNUAL PCP TEAM CHRONIC DISEASE VISIT [facility] Start: 10-18-2023 SERUM CREATININE SERUM CREATININE [facility] Start: 07-20-2023 ANNUAL PCP TEAM JUICE SCALEMAN CHANG DISEASE VISIT ANNUAL PCP TEAM CHRONIC DISEASE VISIT [facility] Start: 07-20-2023 COVID-19 VACCINE (4 - Booster for Moderna series) COVID-19 VACCINE (4 - Booster for Moderna series) [facility] Immunizations Immunization Date Immunization Notes Care Provider [facility] 07-03-2020 COVID-19 vaccine, fu ll dose (MODERNA) Quinton Caldwell TOLL LINE INSPECTOR.ELECTRIC TRIPPER MACHINE OPERATOR Work Phone: [facility] 06-05-2020 COVID-19 vaccine, fu ll dose (MODERNA) Quinton Caldwell TOLL LINE INSPECTOR.ELECTRIC TRIPPER MACHINE OPERATOR Work Phone: [facility] Payers Date Payer Category Payer Unknown ANTHEM BLUE CR[employer] S AND BLUE SHIELD ANTHEM MEDIBLUE O [id number] 2021-Present [phone] [id number] O [id number] 2021 Unknown ANTHEM BLUE CR[employer] S AND BLUE SHIELD ANTHEM MEDIBLUE O [id number] 2021-Present [phone] [address] [place] [id number] O [id number] 2021 Unknown [id number] Social History Date Type Detail Facility Start: 05-16-2018 Tobacco smoking stat us NHIS Ex-smoker [facility] End: 02-14-1999 History of tobacco use Current smoker [facility] Start: 05-16-2018 Tobacco use and exposure User of smokeless tobacco [facility] History of tobacco use Snuff User [facility] Start: 04-30-2021 End: 10-22-2022 Alcohol intake Current non-drinker of alcohol (finding) [facility] Start: 1945 Sex Assigned At Not on file C [facility] Start: 04-19-2021 End: 05-14-2021 Exposure to SARS-CoV-2 (event) Not sure [facility] Start: 01-20-2020 End: 10-22-2022 History of Social function [facility] Start: 01-20-2020 End: 10-22-2022 Tobacco use panel [facility] Adult Depression Scr eening Assessment 0 [facility] Clinical Notes 05-06-2021 to 02-21-2023 Malika Culp MA - 12/10/2022 3:48 PM Quinton Lopez APRN.ELECTRIC TRIPPER MACHINE OPERATOR - 12/10/2022 1:41 PM Sulema Fleming - 12/10/2022 1:14 PM EDTPatient InstructionsPatient Instructions Note Date & Type Note Facility 02-21-2023 Note Patient Outreach (SONIA WEBBERAV) DUNCAN WALTERS ([id number]) 1945 M TXT Date Time Provider Department 02/21/23 CHRISTEN LUJAN During your visit today, we recorded the following information about you: Christen Lujan MA 02/21/2023 4:24 PM Signed POPULATION HEALTH NAVIGATION OUTREACH Action/FYI HCC Gaps Due for: Annual Wellness Left VM; no MyChart Patient Identified by Name and : NO Outreach Outcome/Action Unable to reach patient: Left message Did you use a PCP flex slot to schedule this appointment? N/A Reason for Outreach HCC or suspected condition Payer: Payor: [employer]EV [employer] AND BLUE SHIELD / Plan: [employer] MEDICARE ADVANTAGE HMO / Product Type: HMO / Care Gap Reviewed:: Annual Wellness visit Reminder: Reminder note to check Health Maintenance for items below Health Maintenance items due: Hepatitis C Screening Never done RSV Vaccine(1 - 1-dose 60+ series) Never done LDL Cholesterol due on 03/30/2010 Influenza Vaccine(1) Never done Covid-19 Vaccine(2022- season) due on 10/15/2022 Advance Directive Discussion Never done Navigation Signature: Christen Lujan MA February 21, 2023 10:30 AM Allergies As of Date: 02/21/2023 Noted Allergy Reaction SULFA (SULFONAMIDE ANTIBIOTICS) 08/24/2016 16 - Unknown Date Reviewed: 10/22/2022 Reviewed by: Marylou Covarrubias APRN.ELECTRIC TRIPPER MACHINE OPERATOR - Fully Assessed Reason for Visit: Population Health Navigation Outreach [3910] Cmt: HCC Gaps Prescriptions as of 02/21/2023 - albuterol HFA (PROVENTIL HFA, VENTOLIN HFA) [...] twice daily. 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 02-21-2023 Note HNO ID: [id number] Author: CHRISTEN LUJAN MA Service: ? Author Type: Anesthesiology Physician Assistant Type: Progress Notes Filed: 02/21/2023 16:24 Note Text: POPULATION HEALTH NAVIGATION OUTREACH Action/ HCC Gaps Due for: Annual Wellness Left VM; no MyChart Patient Identified by Name and : NO Outreach Outcome/Action Unable to reach patient: Left message Did you use a PCP flex slot to schedule this appointment? N/A Reason for Outreach HCC or suspected condition Payer: Payor: [employer] AND [employer] / Plan: [employer] MEDICARE ADVANTAGE HMO / Product Type: HMO / Care Gap Reviewed:: Annual Wellness visit Reminder: Reminder note to check Health Maintenance for items below Health Maintenance items due: Hepatitis C Screening Never done RSV Vaccine(1 - 1-dose 60+ series) Never done LDL Cholesterol due on 03/30/2010 Influenza Vaccine(1) Never done Covid-19 Vaccine( season) due on 10/15/2022 Advance Directive Discussion Never done Navigation Signature: Christen Lujan MA February 21, 2023 10:[address] [facility] 12-15-2022 Note HNO ID: [id number] Author: Makenzie Hemphill MA Service: ? Author Type: Anesthesiology Physician Assistant Type: Progress Notes Filed: 12/15/2022 1:29 PM Note Text: Faxed over medical record request to dr haque at [phone]. Makenzie Hemphill MA [facility] 12-15-2022 Note HNO ID: [id number] Author: Quinton Caldwell APRN.ELECTRIC TRIPPER MACHINE OPERATOR Service: ? Author Type: Nurse Practitioner Type: Progress Notes Filed: 12/15/2022 12:38 PM Note Text: Last 2 office notes. Quinton Caldwell APRN.ELECTRIC TRIPPER MACHINE OPERATOR [facility] 12-15-2022 Note HNO ID: [id number] Author: Smita Ramachandran MA Service: ? Author Type: Anesthesiology Physician Assistant Type: Progress Notes Filed: 12/15/2022 10:35 AM Note Text: Spoke with patient and his urologist is Dr. Haque in [place], how many records would you like. Please advise. Smita Ramachandran MA [facility] 12-15-2022 Note HNO ID: [id number] Author: Makenzie Hemphill MA Service: ? Author Type: Anesthesiology Physician Assistant Type: Progress Notes Filed: 12/15/2022 10:04 AM Note Text: Patient will call back with name of the doctor . Makenzie Hemphill MA [facility] 12-10-2022 Note HNO ID: [id number] Author: Malika Culp MA Service: ? Author Type: Anesthesiology Physician Assistant Type: Progress Notes Filed: 12/10/2022 3:48 PM Note Text: Left a message for patient to call back Malika Culp MA [facility] 12-10-2022 History of Presen t illness Narrative Left a message for patient to call back Malika Culp MA Patient was referred to a urologist in October - Please call patient and see if he's seen a urologist yet. I think he may have been going to one outside of [facility]. If he's seeing outside urologist please get name and request records Thank you. Quinton Caldwell APRN.CNP Actionable Finding Review. This patient showed up on the actionable finding registry with a potentially abnormal CT abd/pel and I am tasked to assist with this for the chitina. Report: 2.3 cm partially exophytic left renal [...] 2022 1:14 PM documented in this encounter [facility] 12-10-2022 Note HNO ID: [id number] Author: Quinton Caldwell APRN.CNP Service: ? Author Type: Nurse Practitioner Type: Progress Notes Filed: 12/10/2022 1:42 PM Note Text: Patient was referred to a urologist in October - Please call patient and see if he's seen a urologist yet. I think he may have been going to one outside of [facility]. If he's seeing outside urologist please get name and request records Thank you. Quinton Caldwell APRN.CNP [facility] 12-10-2022 Note HNO ID: [id number] Author: Sulema Garcia Service: ? Author Type: ? Type: Progress Notes Filed: 12/10/2022 1:39 PM Note Text: Actionable Finding Review. This patient showed up on the actionable finding registry with a potentially abnormal CT abd/pel and I am tasked to assist with this for the chitina. Report: 2.3 cm partially exophytic left renal [...] Sulema Garcia December 10, 2022 1:[address] [facility] 12-10-2022 Note Patient Outreach (GL Q) DUNCAN WALTERS ([id number]) 1945 M TXT Date Time Provider Department 12/10/22 SULEMA GARCIA Leodan GLQ During your visit today, we recorded the following information about you: Sulema Garcia 12/10/2022 1:39 PM Signed Actionable Finding Review. This patient showed up on the actionable finding registry with a potentially abnormal CT abd/pel and I am tasked to assist with this for the chitina. Report: 2.3 cm partially exophytic left renal [...] December 10, 2022 1:14 PM Quinton Caldwell APRN.ALEXANDER 12/10/2022 1:42 PM Signed Patient was referred to a urologist in October - Please call patient and see if he's seen a urologist yet. I think he may have been going to one outside of [facility]. If he's seeing outside urologist please get name and request records Thank you. Quinton Caldwell APRN.Malika Giron MA 12/10/2022 3:48 PM Signed Left a message for patient to call back Malika Culp MA CordellkyleMakenzie roberts MA 12/15/2022 10:04 AM Signed Patient will call back with name of the doctor . VIJAY Lindsey Janie, MA 12/15/2022 10:35 AM Signed Spoke with patient and his urologist is Dr. Haque in [place], how many records would you like. Please advise. Smita PizanoryVIJAY Kristin C, APRN.ALEXANDER 12/15/2022 12:38 PM Signed Last 2 office notes. Quinton Caldwell APRN.ALEXANDER Makenzie Hemphill MA 12/15/2022 1:29 PM Signed Faxed over medical record request to dr haque at [phone]. 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 10-22-2022 Note HNO ID: [id number] Author: Marylou Covarrubias APRN.ELECTRIC TRIPPER MACHINE OPERATOR Service: ? Author Type: Nurse Practitioner Type: Progress Notes Filed: 10/24/2022 6:18 PM Note Text: [address] [id number] Visit Date: 10/22/2022 Patient Name: Duncan Walters Date of : 1945 Chief Complaint: ER Follow Up Duncan Walters is a 77 year old male here today for a follow up to a recent emergency room (ER) visit. Emergency Room Location: [facility] Copied from ER note on 10/17/22: [...] aches. He follows with Dr. Cochran with [facility] and had a colonoscopy last year. He has been seen by a urologist in [place] in the past for BPH. He is [...] and vomiting (once). (more content not included)... [facility] 10-22-2022 Instructions Marylou Covarrubias APRN.CNP - 10/22/2022 3:40 PM EDT PRACTICE: [facility] ADDRESS: [address] [place] [address], [address] [place] [address] PHONE NUMBER: Call Dr[address] Cochran office for follow up for rectal cellulitis and pain Probiotics: Elizabeth Ayala documented in this encounter [facility] 10-22-2022 History of Presen t illness Narrative Images from the original note were not included. [address] [id number] Visit Date: 10/22/2022 Patient Name: Duncan Walters Date of : 1945 Chief Complaint: ER Follow Up Duncan Walters is a 77 year old male here today for a follow up to a recent emergency room (ER) visit. Emergency Room Location: [facility] Copied from ER note on 10/17/22: [...] aches. He follows with Dr. Cochran with [facility] and had a colonoscopy last year. He has been seen by a urologist in [place] in the past for BPH. He is [...] 1+ (A) Ketones, Urine Negative Negative Specific [place], Ur 1.005 - 1.030 >=1.030 (H) Hemoglobin/Blood,Ur [...] he was seen by Dr. Haque in [place]. New referral placed. - CONSULT TO UROLOGY [...] 2022 3:38 PM documented in this encounter [facility] 07-19-2022 Note HNO ID: [id number] Author: Quinton Caldwell APRN.CNP Service: ? Author Type: Nurse Practitioner Type: Progress Notes Filed: 07/19/2022 10:49 AM Note Text: This note was created using Motorator. Subjective Duncan Walters is a 76 year [...] is erythematous. Nose: Nose normal. Mouth/Throat: Lips: [place]. Mouth: Mucous membranes are moist. Pharynx: Oropharynx [...] No murmur he (more content not included)... [facility] 07-19-2022 History of Presen t illness Narrative This note was created using Wooopriter. Subjective Duncan Walters is a 76 year [...] is erythematous. Nose: Nose normal. Mouth/Throat: Lips: [place]. Mouth: Mucous membranes are moist. Pharynx: Oropharynx [...] in 3 months for HTN/HPL Quinton Caldwell APRN.ALEXANDER documented in this encounter [facility] 06-30-2022 Note HNO ID: [id number] Author: Carrie Dillard Service: ? Author Type: ? Type: Progress Notes Filed: 06/30/2022 3:16 PM Note Text: POPULATION HEALTH NAVIGATION OUTREACH Action/I Zev attribution review PCP Quinton Caldwell APRN, CNP Patient Identified by Name and : YES, via chart Outreach Outcome/Action PCP field updated Did you use a PCP flex slot to schedule this appointment? N/A Reason for Outreach Attribution: Provider Off-boarding Payer: Payor: [employer] AND [employer] / Plan: ZEV [employer] HMO / Product Type: HMO / Care [...] Carrie Dillard June 30, 2022 3:13 PM [facility] 06-30-2022 Note Patient Outreach (AG ACM) SHANADUNCAN E ([id number]) 1945 M TXT Date Time Provider Department 06/30/22 CARRIE DILLARD AGA During your visit today, we recorded the following information about you: Carrie Dillard 06/30/2022 3:16 PM Signed POPULATION HEALTH NAVIGATION OUTREACH Action/ Zev attribution review PCP Quinton Caldwell APRN, ELECTRIC TRIPPER MACHINE OPERATOR Patient Identified by Name and : YES, via chart Outreach Outcome/Action PCP field updated Did you use a PCP flex slot to schedule this appointment? 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 documented in this encounter [facility] 05-14-2021 History of Presen t illness Narrative This note was created using Motorator. Subjective Duncan Walters is a 75 year [...] ACTIVE PROBLEM LIST Atherosclerotic Heart Disease of [place] Coronary Artery Without Angina Pectoris Hyperlipidemia, Unspecified [...] which included preparing to see the patient, [id number] patient care, completing clinical documentation and obtaining and/or reviewing separately obtained history. documented in this encounter [facility] 05-06-2021 Miscellaneous Notes Patient notified. Makenzie Hemphill [...] Makenzie Hemphill MA documented in this encounter [facility] Diagnosis Upper respiratory tract infection, unspecified type- Primary Wheezing [facility] Diagnosis Cellulitis of rectal area- Primary Abscess of anal and rectal regions Rectal pain Anal or rectal pain Left renal mass Unspecified disorder of kidney and ureter documented in this encounter [facility] Summary Purpose Family History No Family History Records FoundNo Family History Records FoundNo Family History Records FoundNo Family History Records Found Advance Directives No Advanced Directives Records FoundDocuments on File Type Date Recorded Patient Compressor Technician Expl anation Advance Directive(s) 08/24/2016 6:51 AM Reason for Referral Specialty Diagnoses / Procedures Referred By Kriss fields Referred To Contact Urology / UROLOGY Diagnoses Left renal mass Procedures CONSULT TO UROLOGY OFFICE/OUTPATIENT NEW HIGH MDM 60-74 MINUTES Marylou Covarrubias APRN.ELECTRIC TRIPPER MACHINE OPERATOR [address] [place] [address] Sunny Haque MD [address] [facility] [address] [place] [address] Referral ID Status Reason Start Date Expiration Date Visits Requested Visits Authorized [id number] Pending Review PCP Requested Referral 10/22/2022 10/22/2023 1 1 Additional Source Comments (unrecognized sect ion and content) No Status Records FoundNo Status Records FoundNo Status Records FoundNo Status Records Found INFORMATION SOURCE (unrecogn ized section and content) DATE CREATED AUTHOR AUTHOR'S ORGANIZ ATION 12/08/2018 [facility] DATE CREATED AUTHOR AUTHOR'S ORGANIZ ATION 11/02/2022 [facility] DATE CREATED AUTHOR AUTHOR'S ORGANIZ ATION 02/22/2023 [facility] Source Comments (unrecognize d section and content) In the event this informatio n is protected by the Federal Confidentiality of Alcohol and Drug Abuse Patient Records regulations: The Federal rules restrict any use of the information to criminally investigate or prosecute any alcohol or drug abuse patient.[facility] the event this information is protected by the Federal Confidentiality of Alcohol and Drug Abuse Patient Records regulations: The Federal rules restrict any use of the information to criminally investigate or prosecute any alcohol or drug abuse patient.[facility] the event this information is protected by the Federal Confidentiality of Alcohol and Drug Abuse Patient Records regulations: The Federal rules restrict any use of the information to criminally investigate or prosecute any alcohol or drug abuse patient.[facility] the event this information is protected by the Federal Confidentiality of Alcohol and Drug Abuse Patient Records regulations: The Federal rules restrict any use of the information to criminally investigate or prosecute any alcohol or drug abuse patient.[facility] the event this information is protected by the Federal Confidentiality of Alcohol and Drug Abuse Patient Records regulations: The Federal rules restrict any use of the information to criminally investigate or prosecute any alcohol or drug abuse patient.[facility] Reason for Visit (unrecogniz ed section and content) Reason Comments cough and sweating f/u Reason Comments Nasal Congestion Loss of voice starte d yesterday Headache Started Tuesday Reason Comments ER F/U Reason Onset Date Comments Clinical Update 12/10/2022 Care Teams (unrecognized sec tion and content) Dining Room Coordinator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 Specialty Start Date End Date Quinton Caldwell, TOLL LINE INSPECTOR.ELECTRIC TRIPPER MACHINE OPERATOR [address] [place] [address] PCP - General Family Practice 05/16/18 Josué Fernandez MD Physician Gastroenterology 08/24/16 Dining Room Coordinator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 Specialty Start Date End Date Quinton Caldwell, TOLL LINE INSPECTOR.ELECTRIC TRIPPER MACHINE OPERATOR [address] [facility] [place] [id number] PCP - General Family Medicine 05/16/18 Josué Fernandez MD Physician Gastroenterology 08/24/16 Dining Room Coordinator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 Specialty Start Date End Date Quinton Caldwell, TOLL LINE INSPECTOR.ELECTRIC TRIPPER MACHINE OPERATOR [address] [place] [address] PCP - General Family Medicine 05/16/18 Josué Fernandez MD Physician Gastroenterology 08/24/16 Dining Room Coordinator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 Specialty Start Date End Date Quinton Caldwell, TOLL LINE INSPECTOR.ELECTRIC TRIPPER MACHINE OPERATOR [address] [place] [address] PCP - General Family Medicine 05/16/18 Josué [...] BE BASED ON THE PRIMARY CLINICAL RECORDS. [facility] [employer] [facility]. provides no warranty or guarantee of the accuracy or completeness of information in this document.
[2023-03-21 13:50] LABS: Reflex Troponin-HS? (from REC) Y
[2023-03-21 14:07] LABS: Troponin-I HS 18 pg/mL (3.0-78.0)
[2023-03-21] MEDS: Potassium Chloride Oral Tablet 20 MEQ 40 MEQ PO (14:54)
[2023-03-21] MEDS: hydrALAZINE 20 MG/ML Vial 5 MG IV (14:54)
== END 2023-03-21 15:00 | disposition home or self-care (01) ==
PROVIDERS: Emergency Provider Emergency Medicine; PCP Nurse Practitioner Family; Visit Provider Emergency Medicine
DX: R06.02 Shortness of breath (principal); N18.30 Chronic kidney disease, stage 3 unspecified; R00.1 Bradycardia, unspecified; R07.9 Chest pain, unspecified; E87.6 Hypokalemia; I25.10 Atherosclerotic heart disease of native coronary artery without angina pectoris; Z87.891 Personal history of nicotine dependence; Z95.5 Presence of coronary angioplasty implant and graft
CPT/HCPCS: 36415; 71045; 80048; 84484; 85025; 93005; 96374; 99284; A4216

== ENCOUNTER → 2023-04-08 | Outpatient (CLI) | payer MEDICARE, SELFPAY ==
[2023-04-08 16:22] LABS: Anion Gap 3 (5-15); BUN 12 mg/dL (7-18); BUN/Creat Ratio 10.2 RATIO (10-20); Calcium,Total 9.2 mg/dL (8.5-10.1); Chloride 110 mmol/L (98-107); Creatinine, Serum 1.18 mg/dL (0.70-1.30); EST Glomerular Filtration Rate 64 mL/min (>60); Est Glom Filt Rate - Afr Amer 77 mL/min (>60); Glucose 94 mg/dL (74-106); Sodium Level 143 mmol/L (136-145); Thyroid Stim Hormone (TSH) 1.26 uIU/mL (0.358-3.74)
== END | disposition home or self-care (01) ==
LOC: LAB 14:14
PROVIDERS: PCP Nurse Practitioner Family; Referring Provider Nurse Practitioner Gerontology; Visit Provider Nurse Practitioner Gerontology
DX: R53.83 Other fatigue (principal); T50.B95A Adverse effect of other viral vaccines, initial encounter; E55.9 Vitamin D deficiency, unspecified
CPT/HCPCS: 36415; 80048; 82306; 84443

== ENCOUNTER → 2023-04-26 | Outpatient (CLI) | payer MEDICARE, SELFPAY ==
--- NOTE | 2023-04-26 15:30 | CT_ITS ---
STUDY: CTA CHEST REASON FOR EXAM: Male, 77 years old. Blood pressure differ on upper arms -- rule out subclavian stenosis RADIATION DOSAGE (If Supplied By Facility): CTDIvol = ( 16.87 ) mGy, DLP = ( 675.47 ) mGycm TECHNIQUE: The examination was performed with the intravenous administration of IV 100mL Isovue-370. Post-processing of the angiographic images was performed, with multiplanar reformation and 3D reconstruction. Individualized dose optimization techniques were used for this CT. COMPARISON: FINDINGS: Normal enhancement of the main pulmonary artery and right and left pulmonary arteries. Normal enhancement of the bilateral peripheral pulmonary arteries. There is no demonstrated pulmonary embolism. Dilated ascending aorta measuring 4.1 cm. There is no demonstrated aortic dissection. Normal heart and pericardium. Normal mediastinum. Normal hilar regions. Normal visualized trachea and bronchi. The lungs are well expanded. Normal pulmonary parenchyma. Normal pleura. Normal chest wall structures. Normal osseous structures. Normal visualized upper abdomen. CT/CTA Chest W/WO Contrast IMPRESSION: No demonstrated pulmonary embolism or arterial dissection. Dilated ascending aorta. Electronically Signed: Anthony Yepez DO at 16:30 EDT Reading Location ID and State: [facility] / [place] Tel [phone], Service support ,
--- OUTSIDE RECORDS SUMMARY | 2023-04-27 02:26 | XMS RPT_ITS | CCD ---
Author Name Unknown Address [address] [place] [address] Organization [facility] Care Team Providers Care Copy Lathe Operator Name Role Phone SELMA EL Unavailable Unavailable Josué Fernandez MD Unavailable Tri[employer] SOFTWARE DEVELOPMENT LEADER.Quinton MUNOZ Primary Care Provider Josué Fernandez MD Unavailable [employer] SOFTWARE DEVELOPMENT LEADER.Quinton MUNOZ Primary Care Provider Sunny Haque MD Unavailable QUINTON CALDWELL Primary Care Unavailable QUINTON CALDWELL Attending Unavailable QUINTON CALDWELL Primary Care Unavailable MARYLOU COVARRUBIAS Attending Unavailable QUINTON CALDWELL Primary Care Unavailable QIUNTON CALDWELL Primary Care Unavailable Allergies Allergy Classification Reported Allergen(s) Allergy Type Date of Onset Reaction(s) Facility (8 sources) Sulfonamides (Antibiotic); Translations: [SULFA (SULFONAMIDE ANTIBIOTICS)] Propensity to adverse reactions to drug (disorder) [address] [facility] Other [place] Rep[facility] Medications Current Medications Medication Drug Class(es) [...] Drug Class(es) Dates Sig (Normalized) Sig (Original) [id number] 200 actuat albuterol 0.09 mg/actuat metered dose inhaler (8 sources) beta2-Adrenergic Agonist Start: 07-19-2022 take 2 puff(s) by inhalation every four hours as needed for wheezing albuterol HFA (PROVENTIL HFA, VENTOLIN HFA) 90 mcg/actuation inhaler Indications: Wheezing Inhale 2 Puffs as instructed every 4 hours as needed for wheezing/shortnes s of breath. 1 Each 0 07/19/2022 Active Problems Active Problems Problem Classification Problem Date Documented Da te Episodic/Chronic Anxiety disorders (6 sources) Anxiety; Translations: [Anxiety disorder, unspecified] Onset: 9 05-16-2018 Chronic Chronic kidney disease (6 sources) Chronic kidney disease stage 3; Translations: [Chronic kidney disease, stage 3 unspecified] Onset: 1 06-23-2020 Chronic Coronary atherosclerosis and other heart disease (12 sources) Coronary atherosclerosis; Translations: [Atherosclerotic heart disease of [place] coronary artery without angina pectoris] Onset: 6 05-16-2018 Chronic Disorders of lipid metabolism (6 sources) Hyperlipidemia; Translations: [Hyperlipidemia, unspecified] Onset: 6 05-16-2018 Chronic Esophageal disorders (6 sources) Gastroesophageal reflux disease; Translations: [Gastro-esophageal reflux disease without esophagitis] 05-16-2018 Chronic Genitourinary symptoms and ill-defined conditions (1 source) Increased frequency of urination; Translations: [Frequency of micturition] Episodic Heart valve disorders (6 sources) Aortic incompetence, non-rheumatic ; Translations: [Nonrheumatic aortic (valve) insufficiency] Onset: 0 03-19-2019 Chronic Hyperplasia of prostate (6 sources) Benign prostatic hyperplasia; Translations: [Benign prostatic hyperplasia without lower urinary tract symptoms] 05-16-2018 Chronic Mood disorders (12 sources) Major depression, single episode; Translations: [Major depressive disorder, single episode, unspecified] Onset: 6 05-16-2018 Chronic Other diseases of kidney and ureters (1 source) Renal mass; Translations: [Other specified disorders of kidney and ureter] 10-22-2022 Chronic Other diseases of kidney and ureters (1 source) Other specified disorders of kidney and ureter; Translations: [Left renal mass] Onset: 3 Chronic Other gastrointestinal disorders (6 sources) Irritable bowel syndrome; Translations: [Irritable bowel syndrome without diarrhea] 05-16-2018 Chronic Other injuries and conditions due to external causes (1 source) Unspecified foreign body in esophagus causing other injury, initial encounter; Translations: [Unspecified foreign body in esophagus causing other injury, initial encounter] Onset: 7 Other lower respiratory disease (1 source) Wheezing; Translations: [Wheezing] Episodic Other nutritional; endocrine; and metabolic disorders (6 sources) Obese class II; Translations: [Obesity, unspecified] Onset: 0 04-30-2021 Chronic Other nutritional; endocrine; and metabolic disorders (6 sources) Body mass index 30+ - obesity; Translations: [Body mass index (BMI) 38.0-38.9, adult] Onset: 2 04-30-2021 Chronic Vaishali-; endo-; and myocarditis; cardiomyopathy (except that caused by tuberculosis or sexually transmitted disease) (6 sources) Rheumatic heart disease; Translations: [Rheumatic heart disease, unspecified] Onset: 9 03-19-2019 Chronic Pulmonary heart disease (6 sources) Pulmonary arterial hypertension; Translations: [Secondary pulmonary arterial hypertension] Onset: 0 03-19-2019 Chronic Residual codes; unclassified (6 sources) Obstructive sleep apnea syndrome; Translations: [Obstructive sleep apnea (adult) (pediatric)] Onset: 8 03-19-2019 Chronic Past or Other Problems Problem Classification Problem Date Documented Da te Episodic/Chronic Anal and rectal conditions (5 sources) Rectal cellulitis; Translations: [Rectal abscess] Onset: 10-17-2022 10-22-2022 Episodic Coronary atherosclerosis and other heart disease (6 sources) History of cardiovascular surgery; Translations: [Presence of coronary angioplasty implant and graft] Onset: 09-04-2015 05-16-2018 Episodic Other gastrointestinal disorders (1 source) Diarrhea, unspecified; Translations: [Diarrhea, unspecified type] Onset: 10-26-2022 Episodic Other lower respiratory disease (1 source) Wheezing; Translations: [Wheezing] Onset: 07-19-2022 Episodic Other upper respiratory infections (3 sources) Acute upper respiratory infection; Translations: [Acute upper respiratory infection, unspecified] Onset: 07-19-2022 Episodic Screening and history of mental health and substance abuse codes (6 sources) H/O: drug dependency; Translations: [Personal history of nicotine dependence] Onset: 09-04-2015 05-16-2018 Episodic Results Test Name Value Interpretation Reference Range Facil ity Vital Signs Date Time Vital Sign Value Performing Clinician Marina ortiz 10-22-2022 15:24-0400 Body height 177.8 cm Marylou Queden SOFTWARE DEVELOPMENT LEADER.PROBATION MANAGER Work Phone: [facility] 10-22-2022 15:24-0400 Body temperature 98.29 [degF] Marylou Queden SOFTWARE DEVELOPMENT LEADER.PROBATION MANAGER Work Phone: [facility] 10-22-2022 15:24-0400 Body weight 110.68 kg Marylou Queden SOFTWARE DEVELOPMENT LEADER.PROBATION MANAGER Work Phone: [facility] 10-22-2022 15:24-0400 Diastolic blood pressure 68 mm[Hg] Marylou Queden SOFTWARE DEVELOPMENT LEADER.PROBATION MANAGER Work Phone: [facility] 10-22-2022 15:24-0400 Heart rate 65 /min Marylou Queden SOFTWARE DEVELOPMENT LEADER.PROBATION MANAGER Work Phone: [facility] 10-22-2022 15:24-0400 Respiratory rate 18 /min Marylou Queden SOFTWARE DEVELOPMENT LEADER.PROBATION MANAGER Work Phone: [facility] 10-22-2022 15:24-0400 SaO2% (BldA) [Mass fraction] 99 % Marylou Queden SOFTWARE DEVELOPMENT LEADER.PROBATION MANAGER Work Phone: [facility] 10-22-2022 15:24-0400 Systolic blood pressure 126 mm[Hg] Marylou Queden SOFTWARE DEVELOPMENT LEADER.PROBATION MANAGER Work Phone: [facility] 07-19-2022 10:06-0400 Diastolic blood pressure 58 mm[Hg] Quinton Trill SOFTWARE DEVELOPMENT LEADER.PROBATION MANAGER Work Phone: [facility] 07-19-2022 10:06-0400 Systolic blood pressure 122 mm[Hg] Quinton Trill SOFTWARE DEVELOPMENT LEADER.PROBATION MANAGER Work Phone: [facility] 07-19-2022 09:50-0400 Body height 177.8 cm Quinton Bustosjesu SOFTWARE DEVELOPMENT LEADER.PROBATION MANAGER Work Phone: [facility] 07-19-2022 09:50-0400 Body temperature 98.1 [degF] Quinton Bustosjesu SOFTWARE DEVELOPMENT LEADER.PROBATION MANAGER Work Phone: [facility] 07-19-2022 09:50-0400 Body weight 116.12 kg Quinton Bustosjesu SOFTWARE DEVELOPMENT LEADER.PROBATION MANAGER Work Phone: [facility] 07-19-2022 09:50-0400 Heart rate 45 /min Quinton Marichuy SOFTWARE DEVELOPMENT LEADER.PROBATION MANAGER Work Phone: [facility] 07-19-2022 09:50-0400 SaO2% (BldA) [Mass fraction] 95 % Quinton Bustosjesu SOFTWARE DEVELOPMENT LEADER.PROBATION MANAGER Work Phone: [facility] 05-14-2021 11:16-0400 Body height 177.8 cm Brenda Barton MD Work Phone: [facility] 05-14-2021 11:16-0400 Body temperature 98.4 [degF] Brenda Barton MD Work Phone: [facility] 05-14-2021 11:16-0400 Diastolic blood pressure 64 mm[Hg] Brenda Barton MD Work Phone: [facility] 05-14-2021 11:16-0400 Heart rate 66 /min Brenda Barton MD Work Phone: [facility] 05-14-2021 11:16-0400 Respiratory rate 18 /min Brenda Barton MD Work Phone: [facility] 05-14-2021 11:16-0400 SaO2% (BldA) [Mass fraction] 97 % Brenda Barton MD Work Phone: [facility] 05-14-2021 11:16-0400 Systolic blood pressure 126 mm[Hg] Brenda Barton MD Work Phone: [facility] Encounters Encounter Date Encounter Type Care Provider Facility Start: 03-24-2023 ambulatory Ifeoma Harrisonk [facility] Start: 03-24-2023 Follow-up encounter Ifeoma Alarcon harish [facility] Procedures Date Procedure Procedure Detail Performing Clinician Start: 05-14-2021 Urnls dip stick/tabl et rgnt auto w/o microscopy Brenda Barton MD Work Phone: Plan of Treatment Date Care Activity Detail Author Start: 10-17-2025 DIABETES SCREEN DIABETES SCREEN [facility] Start: 10-17-2025 Diabetes Screening Diabetes Screenin g [facility] Start: 10-23-2023 ANNUAL PCP TEAM DEPOSITION OPERATOR CHANG DISEASE VISIT ANNUAL PCP TEAM CHRONIC DISEASE VISIT [facility] Start: 10-18-2023 Creatinine measurement Serum Creatin ine [facility] Start: 10-18-2023 SERUM CREATININE SERUM CREATININE Cl [facility] Start: 07-20-2023 ANNUAL PCP TEAM DEPOSITION OPERATOR CHANG DISEASE VISIT ANNUAL PCP TEAM CHRONIC DISEASE VISIT [facility] Start: 07-20-2023 COVID-19 VACCINE (4 - Booster for Moderna series) COVID-19 VACCINE (4 - Booster for Moderna series) [facility] Immunizations Immunization Date Immunization Notes Care Provider Fa jeferson 07-03-2020 COVID-19 vaccine, fu ll dose (MODERNA) Quinton Caldwell APRN.PROBATION MANAGER Work Phone: [facility] 06-05-2020 COVID-19 vaccine, fu ll dose (MODERNA) Quinton Caldwell APRN.PROBATION MANAGER Work Phone: [facility] Payers Date Payer Category Payer Unknown [employer] BL[employer] CR[employer] S AND BLUE SHIELD ANTHEM MEDIBL[employer] O [id number] 2021-Present [phone] [address] [place] [address] O [id number] 2021 Unknown [id number] 2021 Unknown [id number] Social History Date Type Detail Facility Start: 05-16-2018 Tobacco smoking stat us NHIS Ex-smoker [facility] End: 02-14-1999 History of tobacco use Current smoker [facility] Start: 05-16-2018 Tobacco use and exposure User of smokeless tobacco [facility] History of tobacco use Snuff User [facility] Start: 04-30-2021 End: 01-05-2023 Alcohol intake Current non-drinker of alcohol (finding) [facility] Start: 1945 Sex Assigned At Not on file [facility] Start: 04-19-2021 End: 05-14-2021 Exposure to SARS-CoV-2 (event) Not sure [facility] Start: 01-20-2020 End: 10-22-2022 History of Social function [facility] Start: 01-20-2020 End: 10-22-2022 Tobacco use panel [facility] Adult Depression Scr eening Assessment [address] [facility] Clinical Notes 05-06-2021 to 03-24-2023 Ifeoma Merchant LPN - 03/24/2023 10:04 AM Malika Ross MA - 12/10/2022 3:48 PM Quinton Lopez, SOFTWARE DEVELOPMENT LEADER.ALEXANDER - 12/10/2022 1:41 PM EDTSSulema lazo - 12/10/2022 1:14 PM EDT Note Date & Type Note Facility 03-24-2023 Note Patient Outreach (AG INTMLW) DUNCAN WALTERS ([id number]) 1945 M TXT Date Time Provider Department 03/24/23 IFEOMA MERCHANT During your visit today, we recorded the following information about you: Ifeoma Merchant LPN 03/24/2023 10:23 AM Signed ED Follow Up: Patient discharged from [facility] ED on 03/21/2023. 1. How are you feeling since your ED visit? Better, pt will follow up with physician practice coordinator on the . Have your symptoms improved or resolved? Yes 2. Were you prescribed any medications while in the ED or advised to stop any medication? No - If yes, were you able to fill your prescriptions? Not applicable -if stopped medication, what was the medication? na 3. Were you advised to schedule a follow up appointment with your provider? Yes - If no, Do you feel like you need an appointment scheduled? No - If yes, Do you need this scheduled now or has this already been scheduled? Not applicable 4. Were you able to contact the office or personnel consultant provider prior to your ED visit? No 5. Is there anything else I can do for you today? No Ifeoma Merchant LPN Allergies As of Date: 03/24/2023 Noted Allergy Reaction SULFA (SULFONAMIDE ANTIBIOTICS) 08/24/2016 16 - Unknown Date Reviewed: 10/22/2022 Reviewed by: Marylou Covarrubias APRN.PROBATION MANAGER - Fully Assessed Reason for Visit: ED Follow Up [973] Cmt: [place] ED discharge 03/21/2023 ED outreach Prescriptions as of 03/24/2023 - albuterol HFA (PROVENTIL HFA, VENTOLIN HFA) [...] twice daily. Problem List As Of Date 03/24/2023 Noted Resolved Atherosclerotic heart disease of [place] coronar*09/04/2015 Hyperlipidemia, unspecified [E78.5] 09/04/2015 Major depressive [...] BMI 38.0-38.9,adult [Z68.38] 04/30/2021 Encounter Status:Closed by IFEOMA MERCHANT on 03/24/23 [facility] 03-24-2023 Note HNO ID: [id number] Author: IFEOMA MERCHANT LPN Service: ? Author Type: LICENSED NURSE Type: Progress Notes Filed: 03/24/2023 10:23 Note Text: ED Follow Up: Patient discharged from [facility] ED on 03/21/2023. 1. How are you feeling since your ED visit? Better, pt will follow up with physician practice coordinator on the . Have your symptoms improved or resolved? Yes 2. Were you prescribed any medications while in the ED or advised to stop any medication? No - If yes, were you able to fill your prescriptions? Not applicable -if stopped medication, what was the medication? na 3. Were you advised to schedule a follow up appointment with your provider? Yes - If no, Do you feel like you need an appointment scheduled? No - If yes, Do you need this scheduled now or has this already been scheduled? Not applicable 4. Were you able to contact the office or personnel consultant provider prior to your ED visit? No 5. Is there anything else I can do for you today? No Ifeoma Merchant LPN [facility] 03-24-2023 History of Presen t illness Narrative ED Follow Up: Patient discharged from [facility] ED on 03/21/2023. 1. How are you feeling since your ED visit? Better, pt will follow up with physician practice coordinator on the . Have your symptoms improved or resolved? Yes 2. Were you prescribed any medications while in the ED or advised to stop any medication? No - If yes, were you able to fill your prescriptions? Not applicable -if stopped medication, what was the medication? na 3. Were you advised to schedule a follow up appointment with your provider? Yes - If no, Do you feel like you need an appointment scheduled? No - If yes, Do you need this scheduled now or has this already been scheduled? Not applicable 4. Were you able to contact the office or personnel consultant provider prior to your ED visit? No 5. Is there anything else I can do for you today? No Ifeoma Merchant LPN documented in this encounter [facility] 02-21-2023 Note Patient Outreach (NE TNAV) DUNCAN WALTERS ([id number]) 1945 M TXT Date Time Provider Department 02/21/23 CHRISTEN LUJAN During your visit today, we recorded the following information about you: Christen Lujan MA 02/21/2023 4:24 PM Signed POPULATION HEALTH NAVIGATION OUTREACH Action/ HCC Gaps Due for: Annual Wellness Left VM; no MyChart Patient Identified by Name and : NO Outreach Outcome/Action Unable to reach patient: Left message Did you use a PCP flex slot to schedule this appointment? N/A Reason for Outreach HCC or suspected condition Payer: Payor: [employer] [facility] / Plan: [employer]ICK[employer] MEDICARE ADVANTAGE HMO / Product Type: HMO / Care Gap Reviewed:: Annual Wellness visit Reminder: Reminder note to check Health Maintenance for items below Health Maintenance items due: Hepatitis C Screening Never done RSV Vaccine(1 - 1-dose 60+ series) Never done LDL Cholesterol due on 03/30/2010 Influenza Vaccine(1) Never done Covid-19 Vaccine(2022-24 season) due on 10/15/2022 Advance Directive Discussion Never done Navigation Signature: Christen Lujan MA February 21, 2023 10:30 AM Allergies As of Date: 02/21/2023 Noted Allergy Reaction SULFA (SULFONAMIDE ANTIBIOTICS) 08/24/2016 16 - Unknown Date Reviewed: 10/22/2022 Reviewed by: Marylou Covarrubias APRN.PROBATION MANAGER - Fully Assessed Reason for Visit: Population [...] 02/21/2023 Noted Resolved Atherosclerotic heart disease of [place] coronar*09/04/2015 Hyperlipidemia, unspecified [E78.5] 09/04/2015 Major depressive [...] Encounter Status:Closed by CHRISTEN LUJAN on 02/21/23 [facility] 02-21-2023 Note HNO ID: [id number] Author: CHRISTEN LUJAN MA Service: ? Author Type: Saxophone Player Type: Progress Notes Filed: 02/21/2023 16:24 Note Text: POPULATION HEALTH NAVIGATION OUTREACH Action/I HCC Gaps Due for: Annual Wellness Left VM; no MyChart Patient Identified by Name and : NO Outreach Outcome/Action Unable to reach patient: Left message Did you use a PCP flex slot to schedule this appointment? N/A Reason for Outreach HCC or suspected condition Payer: Payor: [employer] / Plan: [employer] MEDICARE ADVANTAGE HMO / [...] Lujan MA February 21, 2023 10:30 AM [facility] 12-15-2022 Note HNO ID: [id number] Author: Makenzie Hemphill MA Service: ? Author Type: Saxophone Player Type: Progress Notes Filed: 12/15/2022 1:29 PM Note Text: Faxed over medical record request to dr haque at [phone]. Makenzie Hemphill MA [facility] 12-15-2022 Note HNO ID: [id number] Author: Quinton Caldwell APRN.PROBATION MANAGER Service: ? Author Type: Nurse Practitioner Type: Progress Notes Filed: 12/15/2022 12:38 PM Note Text: Last 2 office notes. Quinton Caldwell APRN.PROBATION MANAGER [facility] 12-15-2022 Note HNO ID: [id number] Author: Smita Ramachandran MA Service: ? Author Type: Saxophone Player Type: Progress Notes Filed: 12/15/2022 10:35 AM Note Text: Spoke with patient and his urologist is Dr. Haque in [place], how many records would you like. Please advise. Smita Ramachandran MA [facility] 12-15-2022 Note HNO ID: [id number] Author: Makenzie Hemphill MA Service: ? Author Type: Saxophone Player Type: Progress Notes Filed: 12/15/2022 10:04 AM Note Text: Patient will call back with name of the doctor . Makenzie Hemphill MA [facility] 12-10-2022 Note HNO ID: [id number] Author: Malika Culp MA Service: ? Author Type: Saxophone Player Type: Progress Notes Filed: 12/10/2022 3:48 PM Note Text: Left a message for patient to call back Malika Culp MA [facility] 12-10-2022 History of Presen t illness Narrative Left a message for patient to call back Malika Culp MA Patient was referred to a urologist in October - Please call patient and see if he's seen a urologist yet. I think he may have been going to one outside of [facility]. If he's seeing outside urologist please get name and request records Thank you. Quinton Caldwell APRN.CNP Actionable Finding Review. This patient showed up on the actionable finding registry with a potentially abnormal CT abd/pel and I am tasked to assist with this for the [place]. Report: 2.3 cm partially exophytic left renal [...] 2022 1:14 PM documented in this encounter [facility] 12-10-2022 Note HNO ID: [id number] Author: Quinton Caldwell APRN.CNP Service: ? Author Type: Nurse Practitioner Type: Progress Notes Filed: 12/10/2022 1:42 PM Note Text: Patient was referred to a urologist in October - Please call patient and see if he's seen a urologist yet. I think he may have been going to one outside of [facility]. If he's seeing outside urologist please get name and request records Thank you. Quinton Caldwell APRN.CNP [facility] 12-10-2022 Note HNO ID: [id number] Author: Sulema Garcia Service: ? Author Type: ? Type: Progress Notes Filed: 12/10/2022 1:39 PM Note Text: Actionable Finding Review. This patient showed up on the actionable finding registry with a potentially abnormal CT abd/pel and I am tasked to assist with this for the [place]. Report: 2.3 cm partially exophytic left renal [...] Sulema Garcia December 10, 2022 1:14 PM [facility] 12-10-2022 Note Patient Outreach (GL Q) DUNCAN WALTERS ([id number]) 1945 M TXT Date Time Provider Department 12/10/22 GARCIASULEMA Leodan GLQ During your visit today, we recorded the following information about you: Sulema Garcia 12/10/2022 1:39 PM Signed Actionable Finding Review. This patient showed up on the actionable finding registry with a potentially abnormal CT abd/pel and I am tasked to assist with this for the [place]. Report: 2.3 cm partially exophytic left renal [...] have been going to one outside of [facility]. If he's seeing outside urologist please get name and request records Thank you. Quinton Caldwell APRN.Malika Giron MA 12/10/2022 3:48 PM Signed Left a message for patient to call back VIJAY PerezMakenzie roberts MA 12/15/2022 10:04 AM Signed Patient will call back with name of the doctor . VIJAY Lindsey Janie, MA 12/15/2022 10:35 AM Signed Spoke with patient and his urologist is Dr. Haque in [place], how many records would you like. Please advise. VIJAY Holley Kristin C, APRN.ALEXANDER 12/15/2022 12:38 PM Signed Last 2 office notes. Quinton Caldwell APRN.ALEXANDER Makenzie Hemphill MA 12/15/2022 1:29 PM Signed Faxed over medical record request to dr haque at [phone]. Makenzie Hemphill MA Allergies As of Date: [...] 12/10/2022 Noted Resolved Atherosclerotic heart disease of [place] coronar*09/04/2015 Hyperlipidemia, unspecified [E78.5] 09/04/2015 Major depressive [...] Encounter Status:Closed by SULEMA GARCIA on 12/10/22 [facility] 10-22-2022 Note HNO ID: [id number] Author: Marylou Covarrubias APRN.PROBATION MANAGER Service: ? Author Type: Nurse Practitioner Type: Progress Notes Filed: 10/24/2022 6:18 PM Note Text: [address] [address] Visit Date: 10/22/2022 Patient Name: Duncan Walters Date of : 1945 Chief Complaint: ER Follow Up Duncan Walters is a 77 year old male here today for a follow up to a recent emergency room (ER) visit. Emergency Room Location: [facility] Copied from ER note on 10/17/22: 77-year-old [...] aches. He follows with Dr. Cochran with [facility] and had a colonoscopy last year. He has been seen by a urologist in [place] in the past for BPH. He is [...] and vomiting (once). (more content not included)... [facility] 10-22-2022 Instructions Marylou Covarrubias APRN.CNP - 10/22/2022 3:40 PM EDT PRACTICE: [facility] ADDRESS: [address] [place] [address], [address] [place] [id number] PHONE NUMBER: Call Dr. Cochran office for follow up for rectal cellulitis and pain Probiotics: Elizabeth Ayala documented in this encounter [facility] 10-22-2022 History of Presen t illness Narrative Images from the original note were not included. [address] [address] Visit Date: 10/22/2022 Patient Name: Duncan Walters Date of : 1945 Chief Complaint: ER Follow Up Duncan Walters is a 77 year old male here today for a follow up to a recent emergency room (ER) visit. Emergency Room Location: [facility] Copied from ER note on 10/17/22: 77-year-old [...] aches. He follows with Dr. Cochran with [facility] and had a colonoscopy last year. He has been seen by a urologist in [place] in the past for BPH. He is [...] 1+ (A) Ketones, Urine Negative Negative Specific Lam[place], Ur 1.005 - 1.030 >=1.030 (H) Hemoglobin/Blood,Ur [...] he was seen by Dr. Haque in [place]. New referral placed. - CONSULT TO UROLOGY [...] 2022 3:38 PM documented in this encounter [facility] 07-19-2022 Note HNO ID: [id number] Author: Quinton Caldwell APRN.CNP Service: ? Author Type: Nurse Practitioner Type: Progress Notes Filed: 07/19/2022 10:49 AM Note Text: This note was created using Easel Learn. Subjective Duncan Walters is a 76 year [...] (gastroesophageal reflux disease) H/O heart artery stent 2000 1999, 2005, 2018 Heart failure (HCC) Irritable [...] is erythematous. Nose: Nose normal. Mouth/Throat: Lips: [place]. Mouth: Mucous membranes are moist. Pharynx: Oropharynx [...] No murmur he (more content not included)... [facility] 07-19-2022 History of Presen t illness Narrative This note was created using Easel Learn. Subjective Duncan Walters is a 76 year [...] is erythematous. Nose: Nose normal. Mouth/Throat: Lips: [place]. Mouth: Mucous membranes are moist. Pharynx: Oropharynx [...] Quinton Caldwell APRN.ALEXANDER documented in this encounter [facility] 06-30-2022 Note HNO ID: [id number] Author: Carrie Dillard Service: ? Author Type: ? Type: Progress Notes Filed: 06/30/2022 3:16 PM Note Text: POPULATION HEALTH NAVIGATION OUTREACH Action/[employer] attribution review PCP Quinton Caldwell APRN, CNP Patient Identified by Name and : YES, via chart Outreach Outcome/Action PCP field updated Did you use a PCP flex slot to schedule this appointment? N/A Reason for Outreach Attribution: Provider Off-boarding Payer: Payor: VICKY [employer] / Plan: VICKY MEDIKARO HMO / Product Type: HMO / Care [...] Carrie Dillard June 30, 2022 3:13 PM [facility] 06-30-2022 Note Patient Outreach (AG ACM) SHANADUNCAN Aragon ([id number]) 1945 M TXT Date Time Provider Department 06/30/22 CARRIE DILLARD AGA During your visit today, we recorded the following information about you: Carrie Dillard 06/30/2022 3:16 PM Signed POPULATION HEALTH NAVIGATION OUTREACH Action/[employer] attribution review PCP Quinton Caldwell APRN, PROBATION MANAGER Patient Identified by Name and : YES, via chart Outreach Outcome/Action PCP field updated Did you use a PCP flex slot to schedule this appointment? N/A Reason for Outreach Attribution: Provider Off-boarding Payer: Payor: VICKY [employer] / Plan: VICKY [employer] HMO / Product Type: HMO / Care [...] VISIT due on 05/14/2022 Navigation Signature: Carrie Nishant June 30, 2022 3:13 PM Allergies As [...] 06/30/2022 Noted Resolved Atherosclerotic heart disease of [place] coronar*09/04/2015 Hyperlipidemia, unspecified [E78.5] 09/04/2015 Major depressive [...] Encounter Status:Closed by CARRIE DILLARD on 06/30/22 [facility] 05-14-2021 Instructions Brenda Barton MD - 05/14/2021 12:00 PM EDT Call if symptoms persist or worsen. documented in this encounter [facility] 05-14-2021 History of Presen t illness Narrative This note was created using Easel Learn. Subjective Duncan Walters is a 75 year [...] ACTIVE PROBLEM LIST Atherosclerotic Heart Disease of [place] Coronary Artery Without Angina Pectoris Hyperlipidemia, Unspecified [...] which included preparing to see the patient, [id number] patient care, completing clinical documentation and obtaining and/or reviewing separately obtained history. documented in this encounter [facility] 05-06-2021 Miscellaneous Notes Patient notified. Makenzie Hemphill [...] Makenzie Hemphill MA documented in this encounter [facility] Diagnosis Upper respiratory tract infection, unspecified type- Primary Wheezing [facility] Diagnosis Cellulitis of rectal area- Primary Abscess of anal and rectal regions Rectal pain Anal or rectal pain Left renal mass Unspecified disorder of kidney and ureter documented in this encounter 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 Advance Directive(s) 08/24/2016 6:51 AM Reason for Referral Specialty Diagnoses / Procedures Referred By Contac t Referred To Contact Urology / UROLOGY Diagnoses Left renal mass Procedures CONSULT TO UROLOGY OFFICE/OUTPATIENT [facility] 60-74 MINUTES Marylou Covarrubias, ELVIA.PROBATION MANAGER [address] [place] [address] Sunny Haque MD [address] [address] Referral ID Status Reason Start Date Expiration Date Visits Requested Visits Authorized [id number] Pending Review PCP Requested Referral 10/22/2022 10/22/2023 1 1 Additional Source Comments (unrecognized sect ion and content) No Status Records FoundNo Status Records FoundNo Status Records FoundNo Status Records Found INFORMATION SOURCE (unrecogn ized section and content) DATE CREATED AUTHOR AUTHOR'S ORGANIZ ATION 12/08/2018 [facility] DATE CREATED AUTHOR AUTHOR'S ORGANIZ ATION 02/22/2023 [facility] DATE CREATED AUTHOR AUTHOR'S ORGANIZ ATION 03/25/2023 [facility] Source Comments (unrecognize d section and content) In the event this informatio n is protected by the Federal Confidentiality of Alcohol and Drug Abuse Patient Records regulations: The Federal rules restrict any use of the information to criminally investigate or prosecute any alcohol or drug abuse patient.[facility] the event this information is protected by the Federal Confidentiality of Alcohol and Drug Abuse Patient Records regulations: The Federal rules restrict any use of the information to criminally investigate or prosecute any alcohol or drug abuse patient.[facility] the event this information is protected by the Federal Confidentiality of Alcohol and Drug Abuse Patient Records regulations: The Federal rules restrict any use of the information to criminally investigate or prosecute any alcohol or drug abuse patient.[facility] the event this information is protected by the Federal Confidentiality of Alcohol and Drug Abuse Patient Records regulations: The Federal rules restrict any use of the information to criminally investigate or prosecute any alcohol or drug abuse patient.[facility] the event this information is protected by the Federal Confidentiality of Alcohol and Drug Abuse Patient Records regulations: The Federal rules restrict any use of the information to criminally investigate or prosecute any alcohol or drug abuse patient.[facility] the event this information is protected by the Federal Confidentiality of Alcohol and Drug Abuse Patient Records regulations: The Federal rules restrict any use of the information to criminally investigate or prosecute any alcohol or drug abuse patient.[facility] Reason for Visit (unrecogniz ed section and content) Reason Comments cough and sweating f/u Reason Comments Nasal Congestion Loss of voice starte d yesterday Headache Started Tuesday Reason Comments ER F/U Reason Onset Date Comments Clinical Update 12/10/2022 Reason Onset Date Comments ED Follow Up 03/24/2023 Kya ED disch arge 03/21/2023 ED outreach Care Teams (unrecognized sec tion and content) Copy Lathe Operator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 Specialty Start Date End Date Quinton Caldwell, SOFTWARE DEVELOPMENT LEADER.PROBATION MANAGER [address] [place], [place] [id number] PCP - General Family Practice 05/16/18 Josué Fernandez MD Physician Gastroenterology 08/24/16 Copy Lathe Operator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 Specialty Start Date End Date Quinton Caldwell, SOFTWARE DEVELOPMENT LEADER.PROBATION MANAGER [address] [place] [address] PCP - General Family Medicine 05/16/18 Josué Fernandez MD Physician Gastroenterology 08/24/16 Copy Lathe Operator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 Specialty Start Date End Date Quinton Caldwell, SOFTWARE DEVELOPMENT LEADER.PROBATION MANAGER [address] [place], [place] [id number] PCP - General Family Medicine 05/16/18 Josué Fernandez MD Physician Gastroenterology 08/24/16 Copy Lathe Operator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 Specialty Start Date End Date Quinton Caldwell, SOFTWARE DEVELOPMENT LEADER.PROBATION MANAGER [address] [place] [address] PCP - General Family Medicine 05/16/18 Josué Fernandez MD Physician Gastroenterology 08/24/16 Copy Lathe Operator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 Specialty Start Date End Date Quinton Caldwell APRN.ALEXANDER [address] [place] [address] PCP - General Family Medicine 05/16/18 Josué Fernandez MD Physician Gastroenterology 08/24/16 Sunny Haque MD [address] [place] [phone] Urology 12/15/22 FOR RECORDS PERTAINING TO PATIENTS WHO ARE [...] BE BASED ON THE PRIMARY CLINICAL RECORDS. [facility]. provides no warranty or guarantee of the accuracy or completeness of information in this document.
== END | disposition home or self-care (01) ==
LOC: CT 15:29
PROVIDERS: PCP Nurse Practitioner Family; Referring Provider Nurse Practitioner Family; Visit Provider Nurse Practitioner Family
DX: I77.1 Stricture of artery (principal)
CPT/HCPCS: 71275; Q9967; A4216

== ENCOUNTER 2023-05-10 08:01 | Emergency (ER) | payer MEDICARE, SELFPAY ==
[2023-05-10] VITALS (8 sets, daily range): BP systolic 150–158; BP diastolic 42–66; PULSE 54–60; RESP 15–26; TEMP 36.3–36.7; O2SAT 95–99; BMI 32.0
--- NOTE | 2023-05-10 08:45 | EKG12_ITS ---
Test Reason : SOB Blood Pressure : / mmHG Vent. Rate : 056 BPM Atrial Rate : 056 BPM P-R Int : 156 ms QRS Dur : 104 ms QT Int : 354 ms P-R-T Axes : 000 -31 052 degrees QTc Int : 341 ms Sinus bradycardia Left axis deviation Moderate voltage criteria for LVH, may be normal variant ( R in aVL , [place] product ) Nonspecific ST and T wave abnormality Abnormal ECG Confirmed by NIDHI RDZ, NANCY ([id number]), dictionary editor SHOSHANA ROMERO ([id number]) on 05/11/2023 9:32:12 AM Referred By: CHRISTOPHER Confirmed By:NANCY TERRELL MD
--- NOTE | 2023-05-10 08:46 | EX.ED.DYSGE1 ---
HPI History of Present Illness Chief Complaint: Shortness of Breath Informant: patient Narrative Narrative: 77-year-old male presenting to the emergency room with a chief complaint of flushing and wired sensation. Patient history includes coronary artery disease with stenting, secondary pulmonary hypertension, chronic kidney disease stage III, sleep apnea, and bradycardia. Recent concern for subclavian stenosis was not seen on CTA approximately 2 weeks ago. Patient currently taking 25 mg of metoprolol. There was discussion about going off of his metoprolol but he went back on it and there was discussion of the dose decreasing to 12.5 that he is still at the 25 milligram dosing. Last he had his amlodipine increased from 5 mg to 10 mg. Since then he is felt flushed and a wired sensation. This morning he felt short of breath when he woke up. He has not been experiencing any chest pain or dyspnea exertion. No cough rhinorrhea or fevers. No leg swelling. Denies any changes in bowel or bladder habits. He does note that his blood pressure has been better at the 10 mg amlodipine dose. [facility] Medical History Angina of effort Anxiety Anxiety and depression Atherosclerotic heart disease of [place] coronary artery with other forms of angina pectoris (07/05/17) BPH (benign prostatic hyperplasia) Chest pain Chronic renal failure, stage 3 (moderate) CPAP (continuous positive airway pressure) dependence Essential (primary) hypertension Fatigue after COVID-19 vaccination Former cigarette smoker Former smoker Hypertension Nonrheumatic aortic (valve) insufficiency Obesity Obstructive sleep apnea Rheumatic heart disease Secondary pulmonary arterial hypertension Sleep apnea Home Medications aspirin 81 mg chewable tablet 81 mg PO DAILY@0800 02/08/19 [History Last Taken 05/10/23] pantoprazole 40 mg tablet,delayed release 40 mg PO BID #180 tabs 06/02/22 [Rx Last Taken 05/10/23] albuterol sulfate 90 mcg/actuation aerosol inhaler 2 puff inhalation Q4H PRN shortness of breath or wheezing 07/23/22 [History Last Taken Unknown] atorvastatin 40 mg tablet See Rx Instructions .Route .COMPLEX #90 tabs 07/23/22 [Rx Last Taken 05/09/23] clopidogrel 75 mg tablet See Rx Instructions .Route .COMPLEX #90 tabs 07/23/22 [Rx Last Taken 05/10/23] valsartan 160 mg tablet 160 mg PO DAILY 07/23/22 [History Last Taken 05/10/23] CBD gummy 75 mg PO QHS sleep 01/24/23 [History Last Taken 05/09/23] nitroglycerin 0.4 mg sublingual tablet 0.4 mg sublingual Q5-15M PRN chest pain #25 tabs 01/24/23 [Rx Last Taken Unknown] blood pressure test kit-medium #1 ea 04/08/23 [Rx Last Taken Unknown] metoprolol tartrate 25 mg tablet 25 mg PO BID 04/08/23 [History Last Taken 05/10/23] amlodipine 10 mg tablet 10 mg PO DAILY #90 tabs 05/05/23 [Rx Last Taken Unknown] losartan 25 mg tablet 25 mg PO DAILY #30 tabs 05/10/23 [Rx Last Taken Unknown] potassium chloride 20 mEq tablet,extended release 40 meq (2 x 20 mEq) PO DAILY 4 days #8 tabs 05/10/23 [Rx Last Taken Unknown] Allergy/AdvReac Type Severity Reaction Status Date / Time Sulfa (Sulfonamide Allergy Unknown Verified 05/10/23 08:02 Antibiotics) Family History Other Unknown Family History d/t Adoption Surgical History H/O colonoscopy with polypectomy (~11/2022) History of coronary artery stent placement History of left heart catheterization (04/17/21) History of transurethral resection of prostate Hx of cholecystectomy Social History household members: none housing: house Smoking Status: Former smoker alcohol intake: never substance use type: does not use what type of physical activity do you participate in: walking frequency: 5-6 times per week ROS ROS ED ROS Narrative Wired feeling (like you have had too much caffeine) Constitutional Constitutional ED: Reports weight loss and other Details: 50 pound intentional weight loss in prior year. ; Denies chills or fever(s) Eyes Eyes: Denies change in vision or diplopia ENT ENT ED: Denies ear pain, rhinorrhea or sore throat Cardiovascular Cardiovascular: Denies chest pain, orthopnea, palpitations or racing heartbeat Respiratory/Chest Respiratory/Chest: Reports dyspnea; Denies cough, dyspnea on exertion or orthopnea Gastrointestinal Gastrointestinal: Denies abdominal pain, diarrhea, nausea or vomiting Genitourinary Genitourinary ED: Denies dysuria, hematuria or urinary frequency Musculoskeletal Musculoskeletal: Denies arthralgias or myalgias Integumentary Denies abscess or rash Neurologic Neurologic: Denies headache(s) or weakness Psychiatric Psychiatric: Denies anxiety, depression, suicidal ideation or suicidal thoughts Endocrine Endocrinology: Denies polydipsia, polyphagia or polyuria Allergic/Immunologic Allergic/Immunologic ED: Denies mouth swelling, tongue swelling or urticaria EXAM Physical Exam Narrative Exam Narrative: Right arm with automatic cuff reads 161/58 left arm 148/64 Const Vital Signs: 05/10/23 08:02 05/10/23 08:18 05/10/23 09:02 Temperature 97.4 F L 98.1 F Temperature Source Temporal Temporal Pulse Rate 57 L 54 L Respiratory Rate 18 18 Respiratory Effort Normal Respiratory Depth Normal Respiratory Pattern Normal Blood Pressure 153/59 H 157/62 H Blood Pressure Mean 90 93 Pulse Ox 99 96 Oxygen Delivery Method Room Air Room Air Room Air Positive well nourished, well developed and obese General Appearance ED: well developed Nutritional Appearance: obese HEENT Reports normocephalic, head/scalp atraumatic and moist mucous membranes Eyes PERRL and EOMs intact bilaterally Neck no lymphadenopathy, supple and no JVD Resp normal respiratory effort and clear to auscultation bilaterally Cardio regular rate, regular rhythm and no murmurs Rate: bradycardia GI normal to inspection, nondistended, normoactive bowel sounds and non-tender Palpation: soft Back/Spine no CVA tenderness and normal ROM Extremity normal to inspection General Extremety ED: Negative for edema General Extremity: Negative for edema Neuro oriented x3 and CN's II-XII intact bilaterally Sensorium / Orientation: alert Motor Exam: strength 5/5 throughout Psych mental status grossly normal Mood & Affect: Negative for depressed or tearful Skin no rashes or lesions noted and no wounds MDM MDM MDM Narrative Medical decision making narrative: Broad-based differential including but not limited to dysrhythmia, electrolyte disturbance, ACS, pneumonia CHF pleural effusions, hyperthyroidism, EKG is a sinus bradycardia appears grossly unchanged. My independent interpretation of the chest x-ray is no acute process. Hemoglobin 15.9 with a platelet count of 210. Patient's creatinine is 1.18. Potassium is low at 3.0. Difficult to say why this is. He does report problems with his potassium in the past. Troponin is normal. LFTs are normal. Did check a thyroid stimulating hormone which is normal at 2.20. I spoke with on-call cardiology. We will have him decrease his losartan back to 5 mg/day. Losartan has been associated with flushing. As far as his wired sensation I do not have a great explanation for this. He is to monitor his blood pressure over the next several days. If he finds that it is going back up to the 190 systolic range where he was at before he should begin losartan. I would recommend that he record his blood pressures and schedule a cardiology follow-up in 1 to 2 weeks. History & Record Review Discussion w/independent historian: Patient and Other (outpatient record) Lab Data Attestation: I reviewed the patient's lab results. Labs: Laboratory Results - last 24 hr 05/10/23 08:40 WBC 6.6 RBC 5.35 Hgb 15.9 Hct 46.7 MCV 87.3 MCH 29.7 MCHC 34.0 RDW Std Deviation 40.4 RDW Coeff of Hardik 12.8 Plt Count 210 MPV 9.7 Immature Gran % (Auto) 0.200 Neut % (Auto) 78.9 H Lymph % (Auto) 13.5 L Pender % (Auto) 5.2 Eos % (Auto) 1.1 Baso % (Auto) 1.1 H Absolute Neuts (auto) 5.2 Absolute Lymphs (auto) 0.89 Nucleated RBC % 0 Sodium 144 Potassium 3.0 L Chloride 108 H Carbon Dioxide 24.0 Anion Gap 12 BUN 14 Creatinine 1.18 Estim Creat Clear Calc 65.39 Est GFR (MDRD) Af Amer 77 Est GFR (MDRD) Non-Af 64 BUN/Creatinine Ratio 11.9 Glucose 125 H Calcium 8.7 Total Bilirubin 0.60 AST 14 L ALT 20 Alkaline Phosphatase 61 Troponin I High Sens 14 Total Protein 7.2 Albumin 3.9 Globulin 3.3 Albumin/Globulin Ratio 1.2 TSH 2.20 Radiography Diagnostic Testing: Clinical Impression(s) from Imaging Studies Chest X-Ray 05/10/23 08:50 IMPRESSION: Stable elevation of the right hemidiaphragm. The lungs are clear. Electronically Signed: Pierre Lin MD at 9:07 EDT , EKG Initial EKG: Attestation: I personally reviewed and interpreted this EKG as follows: Comments: Sinus bradycardia with a ventricular rate of 56 bpm. Appears grossly unchanged from EKG dated 21 March 2023 Prior EKG tracings: not available for review Prior: Unchanged Management Discussion w/another healthcare provider: Management Professional (Cardiology (Dr. Barajas)) Discharge Plan Triage Chief Complaint: Shortness of Breath ED Provider: Roney Jensen Dx/Rx/DC Orders Clinical Impression: Hypertension, Atherosclerotic heart disease of [place] coronary artery with other forms of angina pectoris, Acute dyspnea, Acute hypokalemia Prescriptions: New potassium chloride 20 mEq tablet extended release 40 meq PO DAILY 4 Days Qty: 8 0RF losartan 25 mg tablet 25 mg PO DAILY Qty: 30 0RF No Action valsartan 160 mg tablet 160 mg PO DAILY albuterol sulfate 90 mcg/actuation HFA aerosol inhaler 2 puff inhalation Q4H PRN (Reason: shortness of breath or wheezing) Patient Comments: INHALE 2 PUFFS INSTRUCTED EVERY 4 HOURS NEEDED FOR WHEEZING/SHORTNESS OF BREATH. CBD gummy 75 mg PO QHS nitroglycerin 0.4 mg tablet, sublingual 0.4 mg sublingual Q5-15M PRN (Reason: chest pain) Qty: 25 3RF Rx Instructions: do not exceed 3 doses per episode metoprolol tartrate 25 mg tablet 25 mg PO BID (DME) blood pressure test kit-medium Kit See Rx Instructions .Route Qty: 1 0RF Rx Instructions: As directed aspirin 81 MG tablet,chewable 81 mg PO DAILY@0800 pantoprazole 40 mg tablet,delayed release (DR/EC) 40 mg PO BID Qty: 180 3RF atorvastatin 40 mg tablet See Rx Instructions .ROUTE .COMPLEX Qty: 90 3RF Dose Instruction: TAKE 1 TABLET BY MOUTH EVERYDAY AT BEDTIME Rx Instructions: TAKE 1 TABLET BY MOUTH EVERYDAY AT BEDTIME clopidogrel 75 mg tablet See Rx Instructions .ROUTE .COMPLEX Qty: 90 3RF Dose Instruction: TAKE 1 TABLET BY MOUTH EVERY DAY Rx Instructions: TAKE 1 TABLET BY MOUTH EVERY DAY amlodipine 10 mg tablet 10 mg PO DAILY Qty: 90 3RF Primary Care Provider: oRxi Benedict NP Referrals: Butch Beach MD [Med Staff - Active Staff] - 1-2 Weeks Roxi Benedict NP, PLAYGROUND MONITOR-C [Primary Care Provider] - Activity Restrictions/Additional Instructions: Your potassium was noted to be low today and will need to be replaced over the past several days. I have written a prescription for this Tonight please take only 5 mg of your amlodipine. Continue to monitor your blood pressure. If over the next 3 to 4 days you note that your blood pressure is back to the significantly elevated range please begin the losartan. Please record your blood pressures and schedule follow-up appointment with your ship's officer. Disposition Disposition: Home, Self Care
--- NOTE | 2023-05-10 08:50 | RAD_ITS ---
STUDY: X-RAY CHEST REASON FOR EXAM: Male, 77 years old. Dyspnea TECHNIQUE: Single AP portable view of the chest. COMPARISON: Comparison is made with prior study of March 21, 2023. FINDINGS: EKG electrodes are seen. Stable elevation of the right hemidiaphragm. There is no demonstrated pleural abnormality. Normal size heart. Normal mediastinum and sarah. Normal visualized pulmonary arteries. There is atherosclerotic tortuosity of the aortic arch and descending thoracic aorta. There are diffuse degenerative changes of the visualized thoracic spine. Normal visualized ribs, clavicles, and shoulders. There is no demonstrated abnormality of the visualized soft tissue structures of the upper abdomen. RAD/Chest 1 View (Portable) IMPRESSION: Stable elevation of the right hemidiaphragm. The lungs are clear. Electronically Signed: Pierre Lin MD at 9:07 EDT ,
[2023-05-10 08:58] LABS: Absolute Lymphocyte Count 0.89 X10^3/uL (0.83-4.51); Absolute Neutrophil Count 5.2 X10^3/uL (2.0-7.7); Basophil# 0.07 X10^3/uL; Basophil% 1.1 % (0-1); Eosinophil# 0.07 X10^3/uL; Eosinophils% 1.1 % (0-5); Hematocrit 46.7 % (40-54); Hemoglobin 15.9 g/dL (13.0-16.5); Lymphocyte # 0.89 X10^3/ul (0.83-4.51); Lymphocyte % 13.5 % (19-41); Mean Corpuscular Hgb 29.7 pg (27.0-32.0); Mean Corpuscular Volume 87.3 fL (80-94); Mean Platelet Vol. 9.7 fl (6.2-12.0); Monocyte# 0.34 X10^3/uL; Monocyte% 5.2 % (0-10); NRBC Flagged by Analyzer 0 % (0-5); Neutrophil # 5.19 X10^3/uL (2.7-7.7); Neutrophil % 78.9 % (47-70); Platelet Count 210 K/mm3 (150-450); RBC Distribution Width CV 12.8 % (11.6-14.6); RBC Distribution Width SD 40.4 fl (35.1-43.9); Red Blood Count 5.35 M/mm3 (4.6-6.2); White Blood Count 6.6 K/mm3 (4.4-11.0)
[2023-05-10 09:19] LABS: ALB/GLOB Ratio 1.2 RATIO (0.9-2.4); AST(SGOT) 14 U/L (15-37); Alanine Aminotransfer ALT/SGPT 20 U/L (16-61); Albumin, Serum 3.9 g/dL (3.2-5.0); Alkaline Phosphatase 61 U/L (45-117); Anion Gap 12 (5-15); BUN 14 mg/dL (7-18); BUN/Creat Ratio 11.9 RATIO (10-20); Calcium,Total 8.7 mg/dL (8.5-10.1); Chloride 108 mmol/L (98-107); Creatinine, Serum 1.18 mg/dL (0.70-1.30); EST Glomerular Filtration Rate 64 mL/min (>60); Est Glom Filt Rate - Afr Amer 77 mL/min (>60); Estimated Creatinine Clearance 65.39 ml/min; Globulin 3.3 g/dL (2.2-4.2); Glucose 125 mg/dL (74-106); Protein, Total 7.2 g/dL (6.4-8.2); Sodium Level 144 mmol/L (136-145); Troponin-I HS 14 pg/mL (3.0-78.0)
== END 2023-05-10 10:18 | disposition home or self-care (01) ==
PROVIDERS: Emergency Provider Emergency Medicine; PCP Nurse Practitioner Family; Visit Provider Emergency Medicine
DX: I12.9 Hypertensive chronic kidney disease with stage 1 through stage 4 chronic kidney disease, or unspecified chronic kidney disease (principal); N18.30 Chronic kidney disease, stage 3 unspecified; I25.119 Atherosclerotic heart disease of native coronary artery with unspecified angina pectoris; E87.6 Hypokalemia; G47.33 Obstructive sleep apnea (adult) (pediatric); R06.00 Dyspnea, unspecified; Z87.891 Personal history of nicotine dependence; Z79.51 Long term (current) use of inhaled steroids; Z79.899 Other long term (current) drug therapy; Z79.82 Long term (current) use of aspirin; Z95.5 Presence of coronary angioplasty implant and graft
CPT/HCPCS: 71045; 80053; 84443; 84484; 85025; 93005; 99284; A4216